=== PATIENT | female | born 1990 | race Caucasian/White ===

== ENCOUNTER 2018-04-16 13:00 | Outpatient (RCR) | payer OTHER, SELFPAY ==
--- NOTE | 2017-11-25 17:09 | PT.OIE ---
Current Diagnoses Mixed incontinence (11/25/17) Past Medical History (Last Updated 10/20/17 @ 11:01 by Bren Romero) Insulin resistance (Chronic) Past Surgical History (Last Updated 10/20/17 @ 11:00 by Bren Romero) History of salpingectomy (Resolved 05/12/17) History of third molar tooth extraction (Resolved 2004) Status post delivery (Resolved 05/27/14) Status post cone biopsy of cervix (Resolved 10/21/14) Status post hysterectomy (Resolved 05/12/17) Status post laparoscopy (Resolved 2010) Status post loop electrosurgical excision procedure (LEEP) of cervix (Resolved 09/02/14) Provider Visit Care Team Role Provider Type TAMERA Evans Primary Care Provider Advanced Chemical Treatment Plant Technician Specialty: Family Practice Address: [address] [place] [address] Email: [email or web address] Vincent MD Attending Provider Physician Specialty: HAND RIGGER Address: [address] [place] [address] Email: [email or web address] Physical Therapy Initial Evaluation PT-OP-A Visit Information Start: 11/25/17 16:23 Freq: Status: Active Protocol: Document 11/25/17 16:23 [facility] (Rec: 11/25/17 16:58 [facility] [email or web address]) Out-Patient Physical Therapy Visit Information Visit Information Visit Type Initial Evaluation Visit Start Time 13:45 Visit Stop Time 14:30 Total Visit Minutes 45 Visit Number 1 Evaluation Information Evaluation Date 11/25/17 PT-OP-B Current Condition Start: 11/25/17 16:23 Freq: Status: Active Protocol: Document 11/25/17 16:23 [facility] (Rec: 11/25/17 16:58 [facility] [email or web address]) Current Condition History of Current Condition Onset Date 3 1/2 years ago Current Complaints urinary leakage History of Current Condition 26 year old female who underwent a hysterectomy in april of 2017. She notes it was supposed to be a vaginal hysterectomy but due to adhesions between her uterus and bladder it turned into a abdominal incision. She reports following surgery it hurt to void or have a bowel movement for 4 months. She has had 2 deliveries with the last one being 10/10/16. Yudi has a history of pelvic pain that began at age 18. At this time she is no longer experiencing pain but does c/o vaginal dryness. Her chief complaints of symptoms since her hysterectomy include constant bladder leakage throughout the day. She will experience a few drops at a time but this happens frequently all day. She leaks in all positions including laying down and at night. She does wear a pad to bed at night. Yudi also reports she never feels like she empties her bladder all the way and that she could go again soon after she voids. She will often have a slow or hesitant urinary stream and has difficulty initiating the stream of urine. Current Functional Impairments (Reported) Functional Limitations- Other urinary leakage throughout the day, limits recreational activities PT-OP-C Subjective Start: 11/25/17 16:23 Freq: Status: Active Protocol: Document 11/25/17 16:23 [facility] (Rec: 11/25/17 16:58 [facility] [email or web address]) Patient Questionnaires Pelvic Pain and Urgency/Frequency Patient Symptom Scale Pelvic Pain Score 19 PT-OP-F Manual Assessment Start: 11/25/17 16:58 Freq: Status: Active Protocol: Document 11/25/17 16:58 [facility] (Rec: 11/25/17 16:59 [facility] [email or web address]) Manual Assessments Soft Tissue Assessment Soft Tissue Mobility Assessment tightness across the suprapubic fascia and right lower abdominal wall and hip. Decreased hip extension on the right PT-OP-I Pelvic Floor Start: 11/25/17 16:23 Freq: Status: Active Protocol: Document 11/25/17 16:23 [facility] (Rec: 11/25/17 16:58 [facility] [email or web address]) Pelvic Floor Assessment Urine Urinary Symptoms Urge Sensation Incomplete Emptying Leakage Size Small Other Leakage Causes leakage is happening constantly throughout the day Nocturia yes approximately 3 times per night Urine Pad Type Panty Liner Pelvic Clock Pelvic Clock 12-3 Atrophy Pelvic Clock 3-6 Guarding Hypertonic Pelvic Clock 6-9 Atrophy Pelvic Clock 9-12 Atrophy SEMG (uV) Baseline 6.56 Recruitment Pattern Poor/Slow Relaxation Poor/Slow Holding Poor/Slow Stability of Hold Poor/Slow SEMG Stability of Rest Poor/Slow Contraction Ability Manual Muscle Testing Left 1 Manual Muscle Testing Right 1 Manual Muscle Testing Anterior 1 Manual Muscle Testing Posterior 1 PT-OP-Q Treatments Start: 11/25/17 16:23 Freq: Status: Active Protocol: Document 11/25/17 16:23 [facility] (Rec: 11/25/17 16:58 [facility] [email or web address]) Therapeutic Exercises Supine Exercises 2 Supine Exercise Name modified squat stretch Side bilateral Reps/Minutes hold 1-2 minutes 1 Supine Exercise Name pelvic floor isolations with ball squeeze Side bilateral Reps/Minutes 3 x 10 reps Manual Therapy Treatment Manual Techniques 1 Type ILU massage over the abdomen Body Position Hooklying Comments taught ILU self massage for home PT-OP-T Assessment and Plan Start: 11/25/17 16:23 Freq: Status: Active Protocol: Document 11/25/17 16:23 [facility] (Rec: 11/25/17 17:05 [facility] [email or web address]) Physical Therapy Assessment Rehab Potential Rehabilitation Potential Excellent Evaluation Complexity Number of Personal Factors/Comorbidities 0 Number of Body Systems Impaired 1-2 Clinical Presentation at Evaluation Stable Impairments Impairments Activity Tolerance Functional Activities Soft Tissue Mobility Strength Tone Goals Four Impairment elevated resting tone on EMG biofeedback at 6.5 uv Short Term Goal (STG) Yudi is educated in relaxed awareness of the pelvic floor and has improved coordination of her muscles allowing her to relax her pelvic floor at rest STG Duration 6 weeks Three Impairment Nocturia and urinary leakage during the night Short Term Goal (STG) Yudi is able to stay dry at night and is no longer wearing a pad to bed Two Impairment Urinary leakage constant throughout the day Radial Drill Press Operator For [employer] Goal (LTG) Decreased complaints of urinary leakage during the day and Yudi is only using 1 or less pads per day LTG Duration 8 weeks One Impairment Pelvic floor weakness, difficulty facilitating a pelvic floor contraction Senior Living Goal (LTG) With the help of EMG biofeedback, tactile cues, and NMES Yudi is able to facilitate a pelvic floor isolated contraction and she demonstrates improved strength of the pelvic floor LTG Duration 8 weeks Assessment Summary Assessment Yudi presents to physical therapy with a great deal of weakness in her pelvic floor. She tests a 1/5 today MMT in all parts of the levator ani. Her left side of the levator ani is guarded and tight. She is tight in the suprapubic fascia more on the right side with iliopsoas tightness B. Yudi did well today with EMG biofeedback and hip adduction assist to facilitate the pelvic floor as she had difficulty with facilitation on her own. She is a good candidate for NMES and we will try this next visit. Yudi tolerated todays visit well. Physical Therapy Plan Frequency and Duration Frequency of Treatment 1x/Week Duration of Treatment 8 Plan of Care Start Date 11/25/17 Plan of Care End Date 01/20/18 Therapeutic Interventions Therapeutic Interventions Home Exercise Program Manual Therapy Neuromuscular Re-education Patient/Caregiver Education Self-Care/Home Management Soft Tissue Mobilization Therapeutic Exercises Modalities Biofeedback Other Therapeutic Interventions NMES Next Visit Focus/Plan Next Note Type Treatment Note Next Visit Plan pelvic floor neuromuscular facilitation and trial of NMES , begin adding hip stretches it to her HEP
--- NOTE | 2017-11-25 17:12 | PT.OPPOC ---
Current Diagnoses Mixed incontinence (11/25/17) Provider Visit Care Team Role Provider Type TAMERA Evans Primary Care Provider Advanced Flavor Tank Tender Specialty: Family Practice Address: [address] [place] [address], [id number] Email: [email or web address] Attending Provider Physician Specialty: PROOF READER Address: [address] [place] [address], [id number] Email: [email or web address] Plan Of Care PT-OP-T Assessment and Plan Start: 11/25/17 16:23 Freq: Status: Active Protocol: Document 11/25/17 16:23 [facility] (Rec: 11/25/17 17:05 [facility] [email or web address]) Physical Therapy Assessment Rehab Potential Rehabilitation Potential Excellent Evaluation Complexity Number of Personal Factors/Comorbidities 0 Number of Body Systems Impaired 1-2 Clinical Presentation at Evaluation Stable Impairments Impairments Activity Tolerance Functional Activities Soft Tissue Mobility Strength Tone Goals Four Impairment elevated resting tone on EMG biofeedback at 6.5 uv Short Term Goal (STG) Yudi is educated in relaxed awaress of the pelvic floor and has improved coordination of her muscles allowing her to relax her pelvic floor at rest STG Duration 6 weeks Three Impairment Nocturia and urinary leakage during the night Short Term Goal (STG) Yudi is able to stay dry at night and is no longer wearing a pad to bed Two Impairment Urinary leakage constant throughtout the day Pancake Professional Goal (LTG) Decreased complaints of urinary leakage during the day and Yudi is only usine 1 or less pads per day LTG Duration 8 weeks One Impairment Pelvic floor weakness, difficulty facilitating a pelvic floor contraction Long-Term Goal (LTG) With the help of EMG biofeedback, tactile cues, and NMES Yudi is able to facilitate a pelvic floor isolated contraction and she demonstrates improved strength of the pelvic floor LTG Duration 8 weeks Assessment Summary Assessment Yudi presents to physcial therapy with a great deal of weakness in her pelvic floor. She tests a 1/5 today MMT in all parts of the levator ani. Her left side of the leavator ani is guarded and tight. She is tight in the suprapubic fascia more on the right side with iliopsoas tightness BReno Bagley did well today with EMG biofeedback and hip adduction assist to facilitate the pelvic floor as she had difficutly with facilitation on her own. She is a good candidate for NMES and we will try this next visit. Yudi tolerated todays visit well. Physical Therapy Plan Frequency and Duration Frequency of Treatment 1x/Week Duration of Treatment 8 Plan of Care Start Date 11/25/17 Plan of Care End Date 01/20/18 Therapeutic Interventions Therapeutic Interventions Home Exercise Program Manual Therapy Neuromuscular Re-education Patient/Caregiver Education Self-Care/Home Management Soft Tissue Mobilization Therapeutic Exercises Modalities Biofeedback Other Therapeutic Interventions NMES Next Visit Focus/Plan Next Note Type Treatment Note Next Visit Plan pelvic floor neuromuscular facilitation and trial of NMES , begin adding hip stretches it to her HEP Plan of Care Dates Plan of Care Start Date 11/25/17 Plan of Care End Date 01/20/18 Please Sign and Return: I have reviewed this Plan of Care and certify that the skilled therapy services above are required to meet the patient?s needs. Physician Signature Date Printed Name and Credentials Clinical Instructor Signature Printed Name and Credentials
--- NOTE | 2017-12-16 09:00 | PT.OTN ---
Current Diagnoses Mixed incontinence (12/10/17) Physical Therapy Treatment Note PT-OP-A Visit Information Start: 11/25/17 16:23 Freq: Status: Active Protocol: Document 12/10/17 11:09 [facility] (Rec: 12/10/17 11:12 [facility] [email or web address]) Out-Patient Physical Therapy Visit Information Visit Information Visit Type Treatment Note Visit Start Time 10:45 Visit Stop Time 11:30 Total Visit Minutes 45 Visit Number 2 PT-OP-B Current Condition Start: 11/25/17 16:23 Freq: Status: Active Protocol: Document 11/25/17 16:23 [facility] (Rec: 11/25/17 16:58 [facility] [email or web address]) Current Condition History of Current Condition Onset Date 3 1/2 years ago Current Complaints urinary leakage History of Current Condition 26 year old female who underwent a hysterectomy in april of 2017. She notes it was supposed to be a vaginal hysterectomy but due to adhesions between her uterus and bladder it turned into a abdominal incision. She reports following surgery it hurt to void or have a bowel movement for 4 months. She has had 2 deliverys with the last one being 10/10/16. Yudi has a history of pelvic pain that began at age 18. At this time she is no longer experiencing pain but does c/o vaginal dryness. Her chief complaints of symptoms since her hysterectomy include constant bladder leakage throughout the day. She will experience a few drops at a time but this happens frequently all day. She leaks in all positions including laying down and at night. She does wear a pad to bed at night. Yudi also reports she never feels like she empties her bladdera ll the way and that she could go again soon after she voids. She will often have a slow or hesitant urinary stream and has difficulty initiating the stream of urine. Current Functional Impairments (Reported) Functional Limitations- Other urinary leakage throughouts the day, limits recreational activities PT-OP-C Subjective Start: 11/25/17 16:23 Freq: Status: Active Protocol: Document 12/10/17 11:09 [facility] (Rec: 12/10/17 11:12 [facility] [email or web address]) OP-PT Subjective Patient Comments Patient Comments Yudi reports it is difficult to find her pelvic floor and she feels like she is clenching her buttocks PT-OP-F Manual Assessment Start: 11/25/17 16:58 Freq: Status: Active Protocol: Document 11/25/17 16:58 [facility] (Rec: 11/25/17 16:59 [facility] [email or web address]) Manual Assessments Soft Tissue Assessment Soft Tissue Mobility Assessment tightness across the suprapubic fascia and right lower abdominal wall and hip. Decreased hip extension on the right PT-OP-I Pelvic Floor Start: 11/25/17 16:23 Freq: Status: Active Protocol: Document 11/25/17 16:23 [facility] (Rec: 11/25/17 16:58 [facility] [email or web address]) Pelvic Floor Assessment Urine Urinary Symptoms Urge Sensation Incomplete Emptying Leakage Size Small Other Leakage Causes leakage is happening constantly throughout the day Nocturia yes approximately 3 times per night Urine Pad Type Panty Liner Pelvic Clock Pelvic Clock 12-3 Atrophy Pelvic Clock 3-6 Guarding Hypertonic Pelvic Clock 6-9 Atrophy Pelvic Clock 9-12 Atrophy SEMG (uV) Baseline 6.56 Recruitment Pattern Poor/Slow Relaxation Poor/Slow Holding Poor/Slow Stability of Hold Poor/Slow SEMG Stability of Rest Poor/Slow Contraction Ability Manual Muscle Testing Left 1 Manual Muscle Testing Right 1 Manual Muscle Testing Anterior 1 Manual Muscle Testing Posterior 1 PT-OP-Q Treatments Start: 11/25/17 16:23 Freq: Status: Active Protocol: Document 12/10/17 11:13 [facility] (Rec: 12/10/17 11:15 [facility] [email or web address]) Manual Therapy Treatment Soft Tissue Mobilization 1 Body Location suprapubic fascia Mobilization Type Myofascial Release PT-OP-T Assessment and Plan Start: 11/25/17 16:23 Freq: Status: Active Protocol: Document 11/25/17 16:23 [facility] (Rec: 11/25/17 17:05 [facility] [email or web address]) Physical Therapy Assessment Rehab Potential Rehabilitation Potential Excellent Evaluation Complexity Number of Personal Factors/Comorbidities 0 Number of Body Systems Impaired 1-2 Clinical Presentation at Evaluation Stable Impairments Impairments Activity Tolerance Functional Activities Soft Tissue Mobility Strength Tone Goals Four Impairment elevated resting tone on EMG biofeedback at 6.5 uv Short Term Goal (STG) Yudi is educated in relaxed awaress of the pelvic floor and has improved coordination of her muscles allowing her to relax her pelvic floor at rest STG Duration 6 weeks Three Impairment Nocturia and urinary leakage during the night Short Term Goal (STG) Yudi is able to stay dry at night and is no longer wearing a pad to bed Two Impairment Urinary leakage constant throughtout the day Assistant Warehouse Manager Goal (LTG) Decreased complaints of urinary leakage during the day and Yudi is only usine 1 or less pads per day LTG Duration 8 weeks One Impairment Pelvic floor weakness, difficulty facilitating a pelvic floor contraction Assistant Warehouse Manager Goal (LTG) With the help of EMG biofeedback, tactile cues, and NMES Yudi is able to facilitate a pelvic floor isolated contraction and she demonstrates improved strength of the pelvic floor LTG Duration 8 weeks Assessment Summary Assessment Yudi presents to physcial therapy with a great deal of weakness in her pelvic floor. She tests a 1/5 today MMT in all parts of the levator ani. Her left side of the leavator ani is guarded and tight. She is tight in the suprapubic fascia more on the right side with iliopsoas tightness B. Yudi did well today with EMG biofeedback and hip adduction assist to facilitate the pelvic floor as she had difficutly with facilitation on her own. She is a good candidate for NMES and we will try this next visit. Yudi tolerated todays visit well. Physical Therapy Plan Frequency and Duration Frequency of Treatment 1x/Week Duration of Treatment 8 Plan of Care Start Date 11/25/17 Plan of Care End Date 01/20/18 Therapeutic Interventions Therapeutic Interventions Home Exercise Program Manual Therapy Neuromuscular Re-education Patient/Caregiver Education Self-Care/Home Management Soft Tissue Mobilization Therapeutic Exercises Modalities Biofeedback Other Therapeutic Interventions NMES Next Visit Focus/Plan Next Note Type Treatment Note Next Visit Plan pelvic floor neuromuscular facilitation and trial of NMES , begin adding hip stretches it to her HEP
--- NOTE | 2017-12-16 14:09 | PT.OTN ---
Current Diagnoses Mixed incontinence (12/16/17) Physical Therapy Treatment Note PT-OP-A Visit Information Start: 11/25/17 16:23 Freq: Status: Active Protocol: Document 12/16/17 11:11 [facility] (Rec: 12/16/17 11:12 [facility] [email or web address]) Out-Patient Physical Therapy Visit Information Visit Information Visit Type Treatment Note Visit Start Time 01:03 Visit Stop Time 11:15 Total Visit Minutes 45 Visit Number 3 PT-OP-B Current Condition Start: 11/25/17 16:23 Freq: Status: Active Protocol: Document 11/25/17 16:23 [facility] (Rec: 11/25/17 16:58 [facility] [email or web address]) Current Condition History of Current Condition Onset Date 3 1/2 years ago Current Complaints urinary leakage History of Current Condition 26 year old female who underwent a hysterectomy in april of 2017. She notes it was supposed to be a vaginal hysterectomy but due to adhesions between her uterus and bladder it turned into a abdominal incision. She reports following surgery it hurt to void or have a bowel movement for 4 months. She has had 2 deliverys with the last one being 10/10/16. Yudi has a history of pelvic pain that began at age 18. At this time she is no longer experiencing pain but does c/o vaginal dryness. Her chief complaints of symptoms since her hysterectomy include constant bladder leakage throughout the day. She will experience a few drops at a time but this happens frequently all day. She leaks in all positions including laying down and at night. She does wear a pad to bed at night. Yudi also reports she never feels like she empties her bladdera ll the way and that she could go again soon after she voids. She will often have a slow or hesitant urinary stream and has difficulty initiating the stream of urine. Current Functional Impairments (Reported) Functional Limitations- Other urinary leakage throughouts the day, limits recreational activities PT-OP-C Subjective Start: 11/25/17 16:23 Freq: Status: Active Protocol: Document 12/16/17 11:11 [facility] (Rec: 12/16/17 11:12 [facility] [email or web address]) OP-PT Subjective Patient Comments Patient Comments Yudi states she was able to stop the flow and feel it this last visit. PT-OP-F Manual Assessment Start: 11/25/17 16:58 Freq: Status: Active Protocol: Document 11/25/17 16:58 [facility] (Rec: 11/25/17 16:59 [facility] [email or web address]) Manual Assessments Soft Tissue Assessment Soft Tissue Mobility Assessment tightness across the suprapubic fascia and right lower abdominal wall and hip. Decreased hip extension on the right PT-OP-I Pelvic Floor Start: 11/25/17 16:23 Freq: Status: Active Protocol: Document 11/25/17 16:23 [facility] (Rec: 11/25/17 16:58 [facility] [email or web address]) Pelvic Floor Assessment Urine Urinary Symptoms Urge Sensation Incomplete Emptying Leakage Size Small Other Leakage Causes leakage is happening constantly throughout the day Nocturia yes approximately 3 times per night Urine Pad Type Panty Liner Pelvic Clock Pelvic Clock 12-3 Atrophy Pelvic Clock 3-6 Guarding Hypertonic Pelvic Clock 6-9 Atrophy Pelvic Clock 9-12 Atrophy SEMG (uV) Baseline 6.56 Recruitment Pattern Poor/Slow Relaxation Poor/Slow Holding Poor/Slow Stability of Hold Poor/Slow SEMG Stability of Rest Poor/Slow Contraction Ability Manual Muscle Testing Left 1 Manual Muscle Testing Right 1 Manual Muscle Testing Anterior 1 Manual Muscle Testing Posterior 1 PT-OP-Q Treatments Start: 11/25/17 16:23 Freq: Status: Active Protocol: Document 12/16/17 11:05 [facility] (Rec: 12/16/17 11:11 [facility] [email or web address]) Therapeutic Exercises Supine Exercises 2 Supine Exercise Name modified squat stretch Side bilateral Reps/Minutes hold 1-2 minutes 1 Supine Exercise Name pelvic floor isolations with ball squeeze Side bilateral Reps/Minutes 3 x 10 reps Prone Exercises 1 Prone Exercise Name cobra stretch Other Exercises 1 Other Exercise Name quadraped cat cow and TA facilitation Manual Therapy Treatment Soft Tissue Mobilization 1 Body Location suprapubic fascia Mobilization Type Myofascial Release Manual Techniques 1 Type ILU massage over the abdomen Body Position Hooklying Neuro Re-Education Treatment Other Activities 1 Details NMES for the pelvic floor Comments able to feel sesation on the right side today PT-OP-T Assessment and Plan Start: 11/25/17 16:23 Freq: Status: Active Protocol: Document 12/16/17 11:05 [facility] (Rec: 12/16/17 11:11 [facility] [email or web address]) Physical Therapy Assessment Assessment Summary Assessment improved facilitation as Yudi is able to feel the pelvic floor on the right side today Physical Therapy Plan Frequency and Duration Frequency of Treatment 1x/Week Duration of Treatment 8 Plan of Care Start Date 11/25/17 Plan of Care End Date 01/20/18 Therapeutic Interventions Therapeutic Interventions Home Exercise Program Manual Therapy Neuromuscular Re-education Patient/Caregiver Education Self-Care/Home Management Soft Tissue Mobilization Therapeutic Exercises Modalities Biofeedback Other Therapeutic Interventions NMES Next Visit Focus/Plan Next Note Type Treatment Note Next Visit Plan TA facilitation next visit in supine
--- NOTE | 2017-12-23 12:57 | PT.OTN ---
Current Diagnoses Mixed incontinence (12/23/17) Physical Therapy Treatment Note PT-OP-A Visit Information Start: 11/25/17 16:23 Freq: Status: Active Protocol: Document 12/23/17 10:57 [facility] (Rec: 12/23/17 11:01 [facility] [email or web address]) Out-Patient Physical Therapy Visit Information Visit Information Visit Type Treatment Note Visit Start Time 10:30 Visit Stop Time 11:15 Total Visit Minutes 45 Visit Number 4 Evaluation Information Evaluation Date 11/25/17 PT-OP-B Current Condition Start: 11/25/17 16:23 Freq: Status: Active Protocol: Document 11/25/17 16:23 [facility] (Rec: 11/25/17 16:58 [facility] [email or web address]) Current Condition History of Current Condition Onset Date 3 1/2 years ago Current Complaints urinary leakage History of Current Condition 26 year old female who underwent a hysterectomy in april of 2017. She notes it was supposed to be a vaginal hysterectomy but due to adhesions between her uterus and bladder it turned into a abdominal incision. She reports following surgery it hurt to void or have a bowel movement for 4 months. She has had 2 deliverys with the last one being 10/10/16. Yudi has a history of pelvic pain that began at age 18. At this time she is no longer experiencing pain but does c/o vaginal dryness. Her chief complaints of symptoms since her hysterectomy include constant bladder leakage throughout the day. She will experience a few drops at a time but this happens frequently all day. She leaks in all positions including laying down and at night. She does wear a pad to bed at night. Yudi also reports she never feels like she empties her bladdera ll the way and that she could go again soon after she voids. She will often have a slow or hesitant urinary stream and has difficulty initiating the stream of urine. Current Functional Impairments (Reported) Functional Limitations- Other urinary leakage throughouts the day, limits recreational activities PT-OP-C Subjective Start: 11/25/17 16:23 Freq: Status: Active Protocol: Document 12/23/17 10:57 [facility] (Rec: 12/23/17 11:01 [facility] [email or web address]) OP-PT Subjective Patient Comments Patient Comments No new changes this week. Still able to work on stopping the flow of urine PT-OP-F Manual Assessment Start: 11/25/17 16:58 Freq: Status: Active Protocol: Document 11/25/17 16:58 [facility] (Rec: 11/25/17 16:59 [facility] [email or web address]) Manual Assessments Soft Tissue Assessment Soft Tissue Mobility Assessment tightness across the suprapubic fascia and right lower abdominal wall and hip. Decreased hip extension on the right PT-OP-I Pelvic Floor Start: 11/25/17 16:23 Freq: Status: Active Protocol: Document 11/25/17 16:23 [facility] (Rec: 11/25/17 16:58 [facility] [email or web address]) Pelvic Floor Assessment Urine Urinary Symptoms Urge Sensation Incomplete Emptying Leakage Size Small Other Leakage Causes leakage is happening constantly throughout the day Nocturia yes approximately 3 times per night Urine Pad Type Panty Liner Pelvic Clock Pelvic Clock 12-3 Atrophy Pelvic Clock 3-6 Guarding Hypertonic Pelvic Clock 6-9 Atrophy Pelvic Clock 9-12 Atrophy SEMG (uV) Baseline 6.56 Recruitment Pattern Poor/Slow Relaxation Poor/Slow Holding Poor/Slow Stability of Hold Poor/Slow SEMG Stability of Rest Poor/Slow Contraction Ability Manual Muscle Testing Left 1 Manual Muscle Testing Right 1 Manual Muscle Testing Anterior 1 Manual Muscle Testing Posterior 1 PT-OP-Q Treatments Start: 11/25/17 16:23 Freq: Status: Active Protocol: Document 12/23/17 10:57 [facility] (Rec: 12/23/17 11:01 [facility] [email or web address]) Therapeutic Exercises Supine Exercises 3 Supine Exercise Name roll outs with theraband Reps/Minutes 3x 10 reps 1 Supine Exercise Name pelvic floor isolations with ball squeeze Side bilateral Reps/Minutes 3 x 10 reps Prone Exercises 1 Prone Exercise Name cobra stretch Sidelying Exercises 1 Sidelying Exercise Name sidelying clam shell Reps/Minutes 2 x 10 Other Exercises 2 Other Exercise Name TA with opp arms and opp legs 1 Other Exercise Name quadraped cat cow and TA facilitation Neuro Re-Education Treatment Other Activities 1 Details NMES for the pelvic floor Comments able to feel sensation on the right and the left and anterior PT-OP-T Assessment and Plan Start: 11/25/17 16:23 Freq: Status: Active Protocol: Document 12/23/17 12:54 [facility] (Rec: 12/23/17 12:56 [facility] [email or web address]) Physical Therapy Assessment Assessment Summary Assessment Great improvement today on EMG biofeedback Physical Therapy Plan Frequency and Duration Frequency of Treatment 1x/Week Duration of Treatment 8 Plan of Care Start Date 11/25/17 Plan of Care End Date 01/20/18 Therapeutic Interventions Therapeutic Interventions Home Exercise Program Manual Therapy Neuromuscular Re-education Patient/Caregiver Education Self-Care/Home Management Soft Tissue Mobilization Therapeutic Exercises Modalities Biofeedback Other Therapeutic Interventions NMES Next Visit Focus/Plan Next Note Type Treatment Note Next Visit Plan review TA facilitation in quadraped with opp arm/leg and clam shells next visit
--- NOTE | 2017-12-23 18:38 | PT.OTN ---
Current Diagnoses Mixed incontinence (12/23/17) Physical Therapy Treatment Note PT-OP-A Visit Information Start: 11/25/17 16:23 Freq: Status: Active Protocol: Document 12/23/17 10:57 [facility] (Rec: 12/23/17 11:01 [facility] [email or web address]) Out-Patient Physical Therapy Visit Information Visit Information Visit Type Treatment Note Visit Start Time 10:30 Visit Stop Time 11:15 Total Visit Minutes 45 Visit Number 4 Evaluation Information Evaluation Date 11/25/17 PT-OP-B Current Condition Start: 11/25/17 16:23 Freq: Status: Active Protocol: Document 11/25/17 16:23 [facility] (Rec: 11/25/17 16:58 [facility] [email or web address]) Current Condition History of Current Condition Onset Date 3 1/2 years ago Current Complaints urinary leakage History of Current Condition 26 year old female who underwent a hysterectomy in april of 2017. She notes it was supposed to be a vaginal hysterectomy but due to adhesions between her uterus and bladder it turned into a abdominal incision. She reports following surgery it hurt to void or have a bowel movement for 4 months. She has had 2 deliverys with the last one being 10/10/16. Yudi has a history of pelvic pain that began at age 18. At this time she is no longer experiencing pain but does c/o vaginal dryness. Her chief complaints of symptoms since her hysterectomy include constant bladder leakage throughout the day. She will experience a few drops at a time but this happens frequently all day. She leaks in all positions including laying down and at night. She does wear a pad to bed at night. Yudi also reports she never feels like she empties her bladdera ll the way and that she could go again soon after she voids. She will often have a slow or hesitant urinary stream and has difficulty initiating the stream of urine. Current Functional Impairments (Reported) Functional Limitations- Other urinary leakage throughouts the day, limits recreational activities PT-OP-C Subjective Start: 11/25/17 16:23 Freq: Status: Active Protocol: Document 12/23/17 10:57 [facility] (Rec: 12/23/17 11:01 [facility] [email or web address]) OP-PT Subjective Patient Comments Patient Comments No new changes this week. Still able to work on stopping the flow of urine PT-OP-F Manual Assessment Start: 11/25/17 16:58 Freq: Status: Active Protocol: Document 11/25/17 16:58 [facility] (Rec: 11/25/17 16:59 [facility] [email or web address]) Manual Assessments Soft Tissue Assessment Soft Tissue Mobility Assessment tightness across the suprapubic fascia and right lower abdominal wall and hip. Decreased hip extension on the right PT-OP-I Pelvic Floor Start: 11/25/17 16:23 Freq: Status: Active Protocol: Document 11/25/17 16:23 [facility] (Rec: 11/25/17 16:58 [facility] [email or web address]) Pelvic Floor Assessment Urine Urinary Symptoms Urge Sensation Incomplete Emptying Leakage Size Small Other Leakage Causes leakage is happening constantly throughout the day Nocturia yes approximately 3 times per night Urine Pad Type Panty Liner Pelvic Clock Pelvic Clock 12-3 Atrophy Pelvic Clock 3-6 Guarding Hypertonic Pelvic Clock 6-9 Atrophy Pelvic Clock 9-12 Atrophy SEMG (uV) Baseline 6.56 Recruitment Pattern Poor/Slow Relaxation Poor/Slow Holding Poor/Slow Stability of Hold Poor/Slow SEMG Stability of Rest Poor/Slow Contraction Ability Manual Muscle Testing Left 1 Manual Muscle Testing Right 1 Manual Muscle Testing Anterior 1 Manual Muscle Testing Posterior 1 PT-OP-Q Treatments Start: 11/25/17 16:23 Freq: Status: Active Protocol: Document 12/23/17 10:57 [facility] (Rec: 12/23/17 11:01 [facility] [email or web address]) Therapeutic Exercises Supine Exercises 3 Supine Exercise Name roll outs with theraband Reps/Minutes 3x 10 reps 1 Supine Exercise Name pelvic floor isolations with ball squeeze Side bilateral Reps/Minutes 3 x 10 reps Prone Exercises 1 Prone Exercise Name cobra stretch Sidelying Exercises 1 Sidelying Exercise Name sidelying clam shell Reps/Minutes 2 x 10 Other Exercises 2 Other Exercise Name TA with opp arms and opp legs 1 Other Exercise Name quadraped cat cow and TA facilitation Neuro Re-Education Treatment Other Activities 1 Details NMES for the pelvic floor Comments able to feel sensation on the right and the left and anterior PT-OP-T Assessment and Plan Start: 11/25/17 16:23 Freq: Status: Active Protocol: Document 12/23/17 18:36 [facility] (Rec: 12/23/17 18:38 [facility] [email or web address]) Physical Therapy Plan Frequency and Duration Frequency of Treatment 1x/Week Duration of Treatment 8 Plan of Care Start Date 11/25/17 Plan of Care End Date 01/20/18 Therapeutic Interventions Therapeutic Interventions Home Exercise Program Manual Therapy Neuromuscular Re-education Patient/Caregiver Education Self-Care/Home Management Soft Tissue Mobilization Therapeutic Exercises Modalities Biofeedback Other Therapeutic Interventions NMES
--- NOTE | 2017-12-31 14:04 | PT.OTN ---
Current Diagnoses Mixed incontinence (12/31/17) Physical Therapy Treatment Note PT-OP-A Visit Information Start: 11/25/17 16:23 Freq: Status: Active Protocol: Document 12/31/17 13:31 [facility] (Rec: 12/31/17 13:37 [facility] [email or web address]) Out-Patient Physical Therapy Visit Information Visit Information Visit Type Treatment Note Visit Start Time 13:00 Visit Stop Time 13:45 Total Visit Minutes 45 Visit Number 5 PT-OP-B Current Condition Start: 11/25/17 16:23 Freq: Status: Active Protocol: Document 11/25/17 16:23 [facility] (Rec: 11/25/17 16:58 [facility] [email or web address]) Current Condition History of Current Condition Onset Date 3 1/2 years ago Current Complaints urinary leakage History of Current Condition 26 year old female who underwent a hysterectomy in april of 2017. She notes it was supposed to be a vaginal hysterectomy but due to adhesions between her uterus and bladder it turned into a abdominal incision. She reports following surgery it hurt to void or have a bowel movement for 4 months. She has had 2 deliverys with the last one being 10/10/16. Yudi has a history of pelvic pain that began at age 18. At this time she is no longer experiencing pain but does c/o vaginal dryness. Her chief complaints of symptoms since her hysterectomy include constant bladder leakage throughout the day. She will experience a few drops at a time but this happens frequently all day. She leaks in all positions including laying down and at night. She does wear a pad to bed at night. Yudi also reports she never feels like she empties her bladdera ll the way and that she could go again soon after she voids. She will often have a slow or hesitant urinary stream and has difficulty initiating the stream of urine. Current Functional Impairments (Reported) Functional Limitations- Other urinary leakage throughouts the day, limits recreational activities PT-OP-C Subjective Start: 11/25/17 16:23 Freq: Status: Active Protocol: Document 12/31/17 13:31 [facility] (Rec: 12/31/17 13:37 [facility] [email or web address]) OP-PT Subjective Patient Comments Patient Comments Noticing that pads are not as wet as they have been. Using 1-2 per day. PT-OP-F Manual Assessment Start: 11/25/17 16:58 Freq: Status: Active Protocol: Document 11/25/17 16:58 [facility] (Rec: 11/25/17 16:59 [facility] [email or web address]) Manual Assessments Soft Tissue Assessment Soft Tissue Mobility Assessment tightness across the suprapubic fascia and right lower abdominal wall and hip. Decreased hip extension on the right PT-OP-I Pelvic Floor Start: 11/25/17 16:23 Freq: Status: Active Protocol: Document 11/25/17 16:23 [facility] (Rec: 11/25/17 16:58 [facility] [email or web address]) Pelvic Floor Assessment Urine Urinary Symptoms Urge Sensation Incomplete Emptying Leakage Size Small Other Leakage Causes leakage is happening constantly throughout the day Nocturia yes approximately 3 times per night Urine Pad Type Panty Liner Pelvic Clock Pelvic Clock 12-3 Atrophy Pelvic Clock 3-6 Guarding Hypertonic Pelvic Clock 6-9 Atrophy Pelvic Clock 9-12 Atrophy SEMG (uV) Baseline 6.56 Recruitment Pattern Poor/Slow Relaxation Poor/Slow Holding Poor/Slow Stability of Hold Poor/Slow SEMG Stability of Rest Poor/Slow Contraction Ability Manual Muscle Testing Left 1 Manual Muscle Testing Right 1 Manual Muscle Testing Anterior 1 Manual Muscle Testing Posterior 1 PT-OP-Q Treatments Start: 11/25/17 16:23 Freq: Status: Active Protocol: Document 12/31/17 14:01 [facility] (Rec: 12/31/17 14:03 [facility] [email or web address]) Therapeutic Exercises Supine Exercises 3 Supine Exercise Name roll outs with theraband Reps/Minutes 3x 10 reps 2 Supine Exercise Name modified squat stretch Side bilateral Reps/Minutes hold 1-2 minutes 1 Supine Exercise Name pelvic floor isolations with ball squeeze Prone Exercises 2 Prone Exercise Name prone thoracic extensions 1 Prone Exercise Name cobra stretch Sidelying Exercises 2 Sidelying Exercise Name sidelying leg lifts 1 Sidelying Exercise Name sidelying clam shell Reps/Minutes 2 x 10 Other Exercises 2 Other Exercise Name TA with opp arms and opp legs 1 Other Exercise Name quadraped cat cow and TA facilitation Neuro Re-Education Treatment Other Activities 1 Details NMES for the pelvic floor Comments able to feel sensation on the right and the left and anterior PT-OP-T Assessment and Plan Start: 11/25/17 16:23 Freq: Status: Active Protocol: Document 12/31/17 14:01 [facility] (Rec: 12/31/17 14:03 [facility] [email or web address]) Physical Therapy Assessment Assessment Summary Assessment Yudi continues to show improvements with pelvic floor strength. Revisit relaxed awareness of the pelvic floor as well as she has mentioned that she has experienced some discomfort with intercourse. Physical Therapy Plan Frequency and Duration Frequency of Treatment 1x/Week Duration of Treatment 8 Plan of Care Start Date 11/25/17 Plan of Care End Date 01/20/18 Therapeutic Interventions Therapeutic Interventions Home Exercise Program Manual Therapy Neuromuscular Re-education Patient/Caregiver Education Self-Care/Home Management Soft Tissue Mobilization Therapeutic Exercises Modalities Biofeedback Other Therapeutic Interventions NMES Next Visit Focus/Plan Next Note Type Treatment Note Next Visit Plan yoga for the pelvic floor as well as progressing dynamic exercises
--- NOTE | 2018-01-07 13:46 | PT.OTN ---
Current Diagnoses Mixed incontinence (01/07/18) Physical Therapy Treatment Note PT-OP-A Visit Information Start: 11/25/17 16:23 Freq: Status: Active Protocol: Document 01/07/18 12:46 [facility] (Rec: 01/07/18 12:48 [facility] [email or web address]) Out-Patient Physical Therapy Visit Information Visit Information Visit Type Treatment Note Visit Start Time 13:00 Visit Stop Time 13:45 Total Visit Minutes 45 Visit Number 6 PT-OP-B Current Condition Start: 11/25/17 16:23 Freq: Status: Active Protocol: Document 11/25/17 16:23 [facility] (Rec: 11/25/17 16:58 [facility] [email or web address]) Current Condition History of Current Condition Onset Date 3 1/2 years ago Current Complaints urinary leakage History of Current Condition 26 year old female who underwent a hysterectomy in april of 2017. She notes it was supposed to be a vaginal hysterectomy but due to adhesions between her uterus and bladder it turned into a abdominal incision. She reports following surgery it hurt to void or have a bowel movement for 4 months. She has had 2 deliverys with the last one being 10/10/16. Yudi has a history of pelvic pain that began at age 18. At this time she is no longer experiencing pain but does c/o vaginal dryness. Her chief complaints of symptoms since her hysterectomy include constant bladder leakage throughout the day. She will experience a few drops at a time but this happens frequently all day. She leaks in all positions including laying down and at night. She does wear a pad to bed at night. Yudi also reports she never feels like she empties her bladdera ll the way and that she could go again soon after she voids. She will often have a slow or hesitant urinary stream and has difficulty initiating the stream of urine. Current Functional Impairments (Reported) Functional Limitations- Other urinary leakage throughouts the day, limits recreational activities PT-OP-C Subjective Start: 11/25/17 16:23 Freq: Status: Active Protocol: Document 01/07/18 12:46 [facility] (Rec: 01/07/18 12:48 [facility] [email or web address]) OP-PT Subjective Patient Comments Patient Comments doing better overall and able to emtpy easier now. Also went the whole night without leaking PT-OP-F Manual Assessment Start: 11/25/17 16:58 Freq: Status: Active Protocol: Document 11/25/17 16:58 [facility] (Rec: 11/25/17 16:59 [facility] [email or web address]) Manual Assessments Soft Tissue Assessment Soft Tissue Mobility Assessment tightness across the suprapubic fascia and right lower abdominal wall and hip. Decreased hip extension on the right PT-OP-I Pelvic Floor Start: 11/25/17 16:23 Freq: Status: Active Protocol: Document 11/25/17 16:23 [facility] (Rec: 11/25/17 16:58 [facility] [email or web address]) Pelvic Floor Assessment Urine Urinary Symptoms Urge Sensation Incomplete Emptying Leakage Size Small Other Leakage Causes leakage is happening constantly throughout the day Nocturia yes approximately 3 times per night Urine Pad Type Panty Liner Pelvic Clock Pelvic Clock 12-3 Atrophy Pelvic Clock 3-6 Guarding Hypertonic Pelvic Clock 6-9 Atrophy Pelvic Clock 9-12 Atrophy SEMG (uV) Baseline 6.56 Recruitment Pattern Poor/Slow Relaxation Poor/Slow Holding Poor/Slow Stability of Hold Poor/Slow SEMG Stability of Rest Poor/Slow Contraction Ability Manual Muscle Testing Left 1 Manual Muscle Testing Right 1 Manual Muscle Testing Anterior 1 Manual Muscle Testing Posterior 1 PT-OP-Q Treatments Start: 11/25/17 16:23 Freq: Status: Active Protocol: Document 01/07/18 12:46 [facility] (Rec: 01/07/18 12:48 [facility] [email or web address]) Therapeutic Exercises Supine Exercises 5 Supine Exercise Name foam roll stretch 4 Supine Exercise Name TA with marches 3 Supine Exercise Name roll outs with theraband Reps/Minutes 3x 10 reps 1 Supine Exercise Name pelvic floor isolations with ball squeeze Prone Exercises 2 Prone Exercise Name prone thoracic extensions 1 Prone Exercise Name cobra stretch Other Exercises 2 Other Exercise Name TA with opp arms and opp legs 1 Other Exercise Name quadraped cat cow and TA facilitation PT-OP-T Assessment and Plan Start: 11/25/17 16:23 Freq: Status: Active Protocol: Document 01/07/18 13:44 [facility] (Rec: 01/07/18 13:46 [facility] [email or web address]) Physical Therapy Assessment Assessment Summary Assessment Added in foam roll stretch and TA with marches today. Much improved pelvic floor facilitation on EMG. biofeedback to 17.5 average and 38.3 uv max. Improved resting tone today too to 2.0 uv Physical Therapy Plan Frequency and Duration Frequency of Treatment 1x/Week Duration of Treatment 8 Plan of Care Start Date 11/25/17 Plan of Care End Date 01/20/18 Therapeutic Interventions Therapeutic Interventions Home Exercise Program Manual Therapy Neuromuscular Re-education Patient/Caregiver Education Self-Care/Home Management Soft Tissue Mobilization Therapeutic Exercises Modalities Biofeedback Other Therapeutic Interventions NMES Next Visit Focus/Plan Next Note Type Treatment Note Next Visit Plan continue progressing dynamic stabilization, revisit NMES as well
--- NOTE | 2018-01-21 14:25 | PT.OTN ---
Current Diagnoses Mixed incontinence (01/21/18) Physical Therapy Treatment Note PT-OP-A Visit Information Start: 11/25/17 16:23 Freq: Status: Active Protocol: Document 01/21/18 14:13 [facility] (Rec: 01/21/18 14:25 [facility] [email or web address]) Out-Patient Physical Therapy Visit Information Visit Information Visit Type Progress Note Visit Start Time 13:00 Visit Stop Time 13:45 Total Visit Minutes 45 Visit Number 8 Evaluation Information Evaluation Date 11/25/17 PT-OP-B Current Condition Start: 11/25/17 16:23 Freq: Status: Active Protocol: Document 11/25/17 16:23 [facility] (Rec: 11/25/17 16:58 [facility] [email or web address]) Current Condition History of Current Condition Onset Date 3 1/2 years ago Current Complaints urinary leakage History of Current Condition 26 year old female who underwent a hysterectomy in april of 2017. She notes it was supposed to be a vaginal hysterectomy but due to adhesions between her uterus and bladder it turned into a abdominal incision. She reports following surgery it hurt to void or have a bowel movement for 4 months. She has had 2 deliverys with the last one being 10/10/16. Yudi has a history of pelvic pain that began at age 18. At this time she is no longer experiencing pain but does c/o vaginal dryness. Her chief complaints of symptoms since her hysterectomy include constant bladder leakage throughout the day. She will experience a few drops at a time but this happens frequently all day. She leaks in all positions including laying down and at night. She does wear a pad to bed at night. Yudi also reports she never feels like she empties her bladdera ll the way and that she could go again soon after she voids. She will often have a slow or hesitant urinary stream and has difficulty initiating the stream of urine. Current Functional Impairments (Reported) Functional Limitations- Other urinary leakage throughouts the day, limits recreational activities PT-OP-C Subjective Start: 11/25/17 16:23 Freq: Status: Active Protocol: Document 01/21/18 14:13 [facility] (Rec: 01/21/18 14:25 [facility] [email or web address]) OP-PT Subjective Patient Comments Patient Comments Yudi reports she has not been experiencing as much of the heel pain. She has been trying to stand evenly on both feet as she has a tendency to stand on the right Patient Reported Progress Improving PT-OP-F Manual Assessment Start: 11/25/17 16:58 Freq: Status: Active Protocol: Document 11/25/17 16:58 [facility] (Rec: 11/25/17 16:59 [facility] [email or web address]) Manual Assessments Soft Tissue Assessment Soft Tissue Mobility Assessment tightness across the suprapubic fascia and right lower abdominal wall and hip. Decreased hip extension on the right PT-OP-I Pelvic Floor Start: 11/25/17 16:23 Freq: Status: Active Protocol: Document 11/25/17 16:23 [facility] (Rec: 11/25/17 16:58 [facility] [email or web address]) Pelvic Floor Assessment Urine Urinary Symptoms Urge Sensation Incomplete Emptying Leakage Size Small Other Leakage Causes leakage is happening constantly throughout the day Nocturia yes approximately 3 times per night Urine Pad Type Panty Liner Pelvic Clock Pelvic Clock 12-3 Atrophy Pelvic Clock 3-6 Guarding Hypertonic Pelvic Clock 6-9 Atrophy Pelvic Clock 9-12 Atrophy SEMG (uV) Baseline 6.56 Recruitment Pattern Poor/Slow Relaxation Poor/Slow Holding Poor/Slow Stability of Hold Poor/Slow SEMG Stability of Rest Poor/Slow Contraction Ability Manual Muscle Testing Left 1 Manual Muscle Testing Right 1 Manual Muscle Testing Anterior 1 Manual Muscle Testing Posterior 1 PT-OP-Q Treatments Start: 11/25/17 16:23 Freq: Status: Active Protocol: Document 01/21/18 14:13 [facility] (Rec: 01/21/18 14:25 [facility] [email or web address]) Therapeutic Exercises Supine Exercises 5 Supine Exercise Name foam roll stretch 1 Supine Exercise Name pelvic floor isolations with ball squeeze Other Exercises 5 Other Exercise Name iliopspoas half kneeling stretch 3 Other Exercise Name supine stretch over the ball Manual Therapy Treatment Soft Tissue Mobilization 1 Body Location suprapubic fascia Mobilization Type Myofascial Release Manual Techniques 2 Type MET for right pubic upslip 1 Type ILU massage over the abdomen Neuro Re-Education Treatment Other Activities 1 Details NMES for the pelvic floor Comments able to feel the sensation at level 2 now and able to feel more overall sensation in the pelvic floor PT-OP-T Assessment and Plan Start: 11/25/17 16:23 Freq: Status: Active Protocol: Document 01/21/18 14:13 [facility] (Rec: 01/21/18 14:25 [facility] [email or web address]) Physical Therapy Assessment Goals Four Impairment elevated resting tone on EMG biofeedback at 6.5 uv Short Term Goal (STG) Yudi is educated in relaxed awaress of the pelvic floor and has improved coordination of her muscles allowing her to relax her pelvic floor at rest STG Duration 6 weeks Three Impairment Nocturia and urinary leakage during the night Short Term Goal (STG) Yudi is able to stay dry at night and is no longer wearing a pad to bed Two Impairment Urinary leakage constant throughtout the day Half-Way Goal (LTG) Decreased complaints of urinary leakage during the day and Yudi is only usine 1 or less pads per day LTG Duration 8 weeks One Impairment Pelvic floor weakness, difficulty facilitating a pelvic floor contraction Wafer Cleaner Goal (LTG) With the help of EMG biofeedback, tactile cues, and NMES Yudi is able to facilitate a pelvic floor isolated contraction and she demonstrates improved strength of the pelvic floor LTG Duration 8 weeks Progress Towards Goals Progress Towards Goals Progressing Toward Goals Assessment Summary Assessment Yudi is showing continued improvement of pelvic floor strength. Today the average is 19.5 uv with max of 38.5 uv . This is a really big improvement since Yudi began treatment in November. At that time she was unable to facilitate a contraction on her own without adductor musculature helping her. She is making good progress towards her goals and leakage is decreasing. Resting tone of the pelvic floor is also much improved and she is experiencing decreased pain with intercourse. Yudi would benefit from continued PT Physical Therapy Plan Frequency and Duration Frequency of Treatment 1x/Week Duration of Treatment 8 Plan of Care Start Date 01/21/18 Plan of Care End Date 03/17/18
--- NOTE | 2018-01-21 14:25 | PT.OPPOC ---
Current Diagnoses Mixed incontinence (01/21/18) Provider Visit Care Team Role Provider Type TAMERA Evans Primary Care Provider Advanced Die Developer Specialty: Family Practice Address: [address] [place] [address], [id number] Email: [email or web address] Lynsey Vincent MD Attending Provider Physician Specialty: TARGET SETTER Address: [address] [place] [address], [id number] Email: [email or web address] Plan Of Care PT-OP-T Assessment and Plan Start: 11/25/17 16:23 Freq: Status: Active Protocol: Document 01/21/18 14:13 [facility] (Rec: 01/21/18 14:25 [facility] [email or web address]) Physical Therapy Assessment Goals Four Impairment elevated resting tone on EMG biofeedback at 6.5 uv Short Term Goal (STG) Yudi is educated in relaxed awaress of the pelvic floor and has improved coordination of her muscles allowing her to relax her pelvic floor at rest STG Duration 6 weeks Three Impairment Nocturia and urinary leakage during the night Short Term Goal (STG) Yudi is able to stay dry at night and is no longer wearing a pad to bed Two Impairment Urinary leakage constant throughtout the day Longterm Goal (LTG) Decreased complaints of urinary leakage during the day and Yudi is only usine 1 or less pads per day LTG Duration 8 weeks One Impairment Pelvic floor weakness, difficulty facilitating a pelvic floor contraction Longterm Goal (LTG) With the help of EMG biofeedback, tactile cues, and NMES Yudi is able to facilitate a pelvic floor isolated contraction and she demonstrates improved strength of the pelvic floor LTG Duration 8 weeks Progress Towards Goals Progress Towards Goals Progressing Toward Goals Assessment Summary Assessment Yudi is showing continued improvement of pelvic floor strength. Today the average is 19.5 uv with max of 38.5 uv . This is a really big improvement since Yudi began treatment in November. At that time she was unable to facilitate a contraction on her own without adductor musculature helping her. She is making good progress towards her goals and leakage is decreasing. Resting tone of the pelvic floor is also much improved and she is experiencing decreased pain with intercourse. Yudi would benefit from continued PT Physical Therapy Plan Frequency and Duration Frequency of Treatment 1x/Week Duration of Treatment 8 Plan of Care Start Date 01/21/18 Plan of Care End Date 03/17/18 Plan of Care Dates Plan of Care Start Date 01/21/18 Plan of Care End Date 03/17/18 Please Sign and Return: I have reviewed this Plan of Care and certify that the skilled therapy services above are required to meet the patient?s needs. Physician Signature Date Printed Name and Credentials Clinical Instructor Signature Printed Name and Credentials
--- NOTE | 2018-01-28 13:56 | PT.OTN ---
Current Diagnoses Mixed incontinence (01/28/18) Physical Therapy Treatment Note PT-OP-A Visit Information Start: 11/25/17 16:23 Freq: Status: Active Protocol: Document 01/28/18 13:46 [facility] (Rec: 01/28/18 13:56 [facility] [email or web address]) Out-Patient Physical Therapy Visit Information Visit Information Visit Type Treatment Note Visit Start Time 12:15 Visit Stop Time 13:00 Total Visit Minutes 45 Visit Number 9 PT-OP-B Current Condition Start: 11/25/17 16:23 Freq: Status: Active Protocol: Document 11/25/17 16:23 [facility] (Rec: 11/25/17 16:58 [facility] [email or web address]) Current Condition History of Current Condition Onset Date 3 1/2 years ago Current Complaints urinary leakage History of Current Condition 26 year old female who underwent a hysterectomy in april of 2017. She notes it was supposed to be a vaginal hysterectomy but due to adhesions between her uterus and bladder it turned into a abdominal incision. She reports following surgery it hurt to void or have a bowel movement for 4 months. She has had 2 deliverys with the last one being 10/10/16. Yudi has a history of pelvic pain that began at age 18. At this time she is no longer experiencing pain but does c/o vaginal dryness. Her chief complaints of symptoms since her hysterectomy include constant bladder leakage throughout the day. She will experience a few drops at a time but this happens frequently all day. She leaks in all positions including laying down and at night. She does wear a pad to bed at night. Yudi also reports she never feels like she empties her bladdera ll the way and that she could go again soon after she voids. She will often have a slow or hesitant urinary stream and has difficulty initiating the stream of urine. Current Functional Impairments (Reported) Functional Limitations- Other urinary leakage throughouts the day, limits recreational activities PT-OP-C Subjective Start: 11/25/17 16:23 Freq: Status: Active Protocol: Document 01/28/18 13:46 [facility] (Rec: 01/28/18 13:56 [facility] [email or web address]) OP-PT Subjective Patient Comments Patient Comments Yudi reports she was able to make a long drive to [place] and only had to stop 1-2 times to void on the way there and back. Urgency is decreasing Patient Reported Progress Improving PT-OP-F Manual Assessment Start: 11/25/17 16:58 Freq: Status: Active Protocol: Document 11/25/17 16:58 [facility] (Rec: 11/25/17 16:59 [facility] [email or web address]) Manual Assessments Soft Tissue Assessment Soft Tissue Mobility Assessment tightness across the suprapubic fascia and right lower abdominal wall and hip. Decreased hip extension on the right PT-OP-I Pelvic Floor Start: 11/25/17 16:23 Freq: Status: Active Protocol: Document 11/25/17 16:23 [facility] (Rec: 11/25/17 16:58 [facility] [email or web address]) Pelvic Floor Assessment Urine Urinary Symptoms Urge Sensation Incomplete Emptying Leakage Size Small Other Leakage Causes leakage is happening constantly throughout the day Nocturia yes approximately 3 times per night Urine Pad Type Panty Liner Pelvic Clock Pelvic Clock 12-3 Atrophy Pelvic Clock 3-6 Guarding Hypertonic Pelvic Clock 6-9 Atrophy Pelvic Clock 9-12 Atrophy SEMG (uV) Baseline 6.56 Recruitment Pattern Poor/Slow Relaxation Poor/Slow Holding Poor/Slow Stability of Hold Poor/Slow SEMG Stability of Rest Poor/Slow Contraction Ability Manual Muscle Testing Left 1 Manual Muscle Testing Right 1 Manual Muscle Testing Anterior 1 Manual Muscle Testing Posterior 1 PT-OP-Q Treatments Start: 11/25/17 16:23 Freq: Status: Active Protocol: Document 01/28/18 13:46 [facility] (Rec: 01/28/18 13:56 [facility] [email or web address]) Therapeutic Exercises Supine Exercises 7 Supine Exercise Name quick pelvic floor contractions 1 Supine Exercise Name pelvic floor isolations with ball squeeze Sidelying Exercises 1 Sidelying Exercise Name sidelying clam shell Reps/Minutes 2 x 10 Other Exercises 6 Other Exercise Name iliopsoas stretch in tyrell test position Manual Therapy Treatment Soft Tissue Mobilization 1 Body Location suprapubic fascia Mobilization Type Myofascial Release PT-OP-T Assessment and Plan Start: 11/25/17 16:23 Freq: Status: Active Protocol: Document 01/28/18 13:46 [facility] (Rec: 01/28/18 13:56 [facility] [email or web address]) Physical Therapy Assessment Assessment Summary Assessment Yudi relaxes her pelvic floor much better following her stretching routine. We will return to doing this first next visit. Her right hip was tight today with hip ER possibibly from her drive. OVerall her symptoms continue to decrease and urgency is lessened Physical Therapy Plan Frequency and Duration Frequency of Treatment 1x/Week Duration of Treatment 8 Plan of Care Start Date 01/21/18 Plan of Care End Date 03/17/18 Therapeutic Interventions Therapeutic Interventions Home Exercise Program Manual Therapy Neuromuscular Re-education Patient/Caregiver Education Self-Care/Home Management Soft Tissue Mobilization Therapeutic Exercises Modalities Biofeedback Other Therapeutic Interventions NMES Next Visit Focus/Plan Next Note Type Treatment Note Next Visit Plan begin with stretches next visit then pelvic floor work. Continue with NMES next visit
--- NOTE | 2018-02-11 09:57 | PT.OTN ---
Current Diagnoses Mixed incontinence (02/04/18) Physical Therapy Treatment Note PT-OP-A Visit Information Start: 11/25/17 16:23 Freq: Status: Active Protocol: Document 02/04/18 13:20 [facility] (Rec: 02/04/18 13:40 [facility] [email or web address]) Out-Patient Physical Therapy Visit Information Visit Information Visit Type Treatment Note Visit Start Time 12:15 Visit Stop Time 13:00 Total Visit Minutes 45 Visit Number 10 Evaluation Information Evaluation Date 11/25/17 PT-OP-B Current Condition Start: 11/25/17 16:23 Freq: Status: Active Protocol: Document 11/25/17 16:23 [facility] (Rec: 11/25/17 16:58 [facility] [email or web address]) Current Condition History of Current Condition Onset Date 3 1/2 years ago Current Complaints urinary leakage History of Current Condition 26 year old female who underwent a hysterectomy in april of 2017. She notes it was supposed to be a vaginal hysterectomy but due to adhesions between her uterus and bladder it turned into a abdominal incision. She reports following surgery it hurt to void or have a bowel movement for 4 months. She has had 2 deliverys with the last one being 10/10/16. Yudi has a history of pelvic pain that began at age 18. At this time she is no longer experiencing pain but does c/o vaginal dryness. Her chief complaints of symptoms since her hysterectomy include constant bladder leakage throughout the day. She will experience a few drops at a time but this happens frequently all day. She leaks in all positions including laying down and at night. She does wear a pad to bed at night. Yudi also reports she never feels like she empties her bladdera ll the way and that she could go again soon after she voids. She will often have a slow or hesitant urinary stream and has difficulty initiating the stream of urine. Current Functional Impairments (Reported) Functional Limitations- Other urinary leakage throughouts the day, limits recreational activities PT-OP-C Subjective Start: 11/25/17 16:23 Freq: Status: Active Protocol: Document 02/04/18 13:20 [facility] (Rec: 02/04/18 13:40 [facility] [email or web address]) OP-PT Subjective Patient Comments Patient Comments Continues to make improvement. Leakage continues to decrease Patient Reported Progress Improving PT-OP-F Manual Assessment Start: 11/25/17 16:58 Freq: Status: Active Protocol: Document 11/25/17 16:58 [facility] (Rec: 11/25/17 16:59 [facility] [email or web address]) Manual Assessments Soft Tissue Assessment Soft Tissue Mobility Assessment tightness across the suprapubic fascia and right lower abdominal wall and hip. Decreased hip extension on the right PT-OP-I Pelvic Floor Start: 11/25/17 16:23 Freq: Status: Active Protocol: Document 11/25/17 16:23 [facility] (Rec: 11/25/17 16:58 [facility] [email or web address]) Pelvic Floor Assessment Urine Urinary Symptoms Urge Sensation Incomplete Emptying Leakage Size Small Other Leakage Causes leakage is happening constantly throughout the day Nocturia yes approximately 3 times per night Urine Pad Type Panty Liner Pelvic Clock Pelvic Clock 12-3 Atrophy Pelvic Clock 3-6 Guarding Hypertonic Pelvic Clock 6-9 Atrophy Pelvic Clock 9-12 Atrophy SEMG (uV) Baseline 6.56 Recruitment Pattern Poor/Slow Relaxation Poor/Slow Holding Poor/Slow Stability of Hold Poor/Slow SEMG Stability of Rest Poor/Slow Contraction Ability Manual Muscle Testing Left 1 Manual Muscle Testing Right 1 Manual Muscle Testing Anterior 1 Manual Muscle Testing Posterior 1 PT-OP-Q Treatments Start: 11/25/17 16:23 Freq: Status: Active Protocol: Document 02/04/18 13:20 [facility] (Rec: 02/04/18 13:40 [facility] [email or web address]) Therapeutic Exercises Supine Exercises 8 Supine Exercise Name templates for eccentric control and coordiation 7 Supine Exercise Name quick pelvic floor contractions 4 Supine Exercise Name TA with marches Comments trial of both directions 1 Supine Exercise Name pelvic floor isolations with ball squeeze Prone Exercises 2 Prone Exercise Name prone thoracic extensions Comments EMG biofeedback 1 Prone Exercise Name cobra stretch Sidelying Exercises 2 Sidelying Exercise Name sidelying l;eg lifts 1 Sidelying Exercise Name sidelying clam shell Reps/Minutes 2 x 10 Other Exercises 6 Other Exercise Name iliopsoas stretch in tyrell test position 5 Other Exercise Name iliopspoas half kneeling stretch 3 Other Exercise Name supine stretch over the ball Manual Therapy Treatment Manual Techniques 2 Type MET for right pubic upslip Neuro Re-Education Treatment Other Activities 1 Details NMES for the pelvic floor Comments able to feel the sensation at level 2 now and able to feel more overall sensation in the pelvic floor PT-OP-T Assessment and Plan Start: 11/25/17 16:23 Freq: Status: Active Protocol: Document 02/04/18 13:20 [facility] (Rec: 02/04/18 13:40 [facility] [email or web address]) Physical Therapy Assessment Assessment Summary Assessment continues to make progress with physical therapy and resting tone was back down today, added in templates for coordination and eccentric control Physical Therapy Plan Frequency and Duration Frequency of Treatment 1x/Week Duration of Treatment 8 Plan of Care Start Date 01/21/18 Plan of Care End Date 03/17/18 Therapeutic Interventions Therapeutic Interventions Home Exercise Program Manual Therapy Neuromuscular Re-education Patient/Caregiver Education Self-Care/Home Management Soft Tissue Mobilization Therapeutic Exercises Modalities Biofeedback Other Therapeutic Interventions NMES Next Visit Focus/Plan Next Note Type Treatment Note Next Visit Plan review TA stabilization, hip flexor stretch with leg extended, and templates for ecentric control
--- NOTE | 2018-02-11 14:33 | PT.OTN ---
Current Diagnoses Mixed incontinence (02/11/18) Physical Therapy Treatment Note PT-OP-A Visit Information Start: 11/25/17 16:23 Freq: Status: Active Protocol: Document 02/11/18 14:27 [facility] (Rec: 02/11/18 14:33 [facility] [id number]) Out-Patient Physical Therapy Visit Information Visit Information Visit Type Treatment Note Visit Start Time 12:15 Visit Stop Time 01:00 Total Visit Minutes 45 Visit Number 11 PT-OP-B Current Condition Start: 11/25/17 16:23 Freq: Status: Active Protocol: Document 11/25/17 16:23 [facility] (Rec: 11/25/17 16:58 [facility] [id number]) Current Condition History of Current Condition Onset Date 3 1/2 years ago Current Complaints urinary leakage History of Current Condition 26 year old female who underwent a hysterectomy in april of 2017. She notes it was supposed to be a vaginal hysterectomy but due to adhesions between her uterus and bladder it turned into a abdominal incision. She reports following surgery it hurt to void or have a bowel movement for 4 months. She has had 2 deliverys with the last one being 10/10/16. Yudi has a history of pelvic pain that began at age 18. At this time she is no longer experiencing pain but does c/o vaginal dryness. Her chief complaints of symptoms since her hysterectomy include constant bladder leakage throughout the day. She will experience a few drops at a time but this happens frequently all day. She leaks in all positions including laying down and at night. She does wear a pad to bed at night. Yudi also reports she never feels like she empties her bladdera ll the way and that she could go again soon after she voids. She will often have a slow or hesitant urinary stream and has difficulty initiating the stream of urine. Current Functional Impairments (Reported) Functional Limitations- Other urinary leakage throughouts the day, limits recreational activities PT-OP-C Subjective Start: 11/25/17 16:23 Freq: Status: Active Protocol: Document 02/11/18 14:27 [facility] (Rec: 02/11/18 14:33 [facility] [id number]) OP-PT Subjective Patient Comments Patient Comments Yudi reports having a mid back and rib cage spasm/pain this past weekend. Drove to [place] with kids. She notes bladder leakage is continueing to decrease Patient Reported Progress Improving PT-OP-F Manual Assessment Start: 11/25/17 16:58 Freq: Status: Active Protocol: Document 11/25/17 16:58 [facility] (Rec: 11/25/17 16:59 [facility] [email or web address]) Manual Assessments Soft Tissue Assessment Soft Tissue Mobility Assessment tightness across the suprapubic fascia and right lower abdominal wall and hip. Decreased hip extension on the right PT-OP-I Pelvic Floor Start: 11/25/17 16:23 Freq: Status: Active Protocol: Document 11/25/17 16:23 [facility] (Rec: 11/25/17 16:58 [facility] [email or web address]) Pelvic Floor Assessment Urine Urinary Symptoms Urge Sensation Incomplete Emptying Leakage Size Small Other Leakage Causes leakage is happening constantly throughout the day Nocturia yes approximately 3 times per night Urine Pad Type Panty Liner Pelvic Clock Pelvic Clock 12-3 Atrophy Pelvic Clock 3-6 Guarding Hypertonic Pelvic Clock 6-9 Atrophy Pelvic Clock 9-12 Atrophy SEMG (uV) Baseline 6.56 Recruitment Pattern Poor/Slow Relaxation Poor/Slow Holding Poor/Slow Stability of Hold Poor/Slow SEMG Stability of Rest Poor/Slow Contraction Ability Manual Muscle Testing Left 1 Manual Muscle Testing Right 1 Manual Muscle Testing Anterior 1 Manual Muscle Testing Posterior 1 PT-OP-Q Treatments Start: 11/25/17 16:23 Freq: Status: Active Protocol: Document 02/11/18 14:27 [facility] (Rec: 02/11/18 14:33 [facility] [email or web address]) Manual Therapy Treatment Soft Tissue Mobilization 2 Body Location STM over the thoracic spine region 1 Body Location suprapubic fascia Mobilization Type Myofascial Release Manual Techniques 1 Type ILU massage over the abdomen Neuro Re-Education Treatment Other Activities 1 Details NMES for the pelvic floor Comments able to feel the sensation at level 2 now and able to feel more overall sensation in the pelvic floor PT-OP-T Assessment and Plan Start: 11/25/17 16:23 Freq: Status: Active Protocol: Document 02/11/18 14:27 [facility] (Rec: 02/11/18 14:33 [facility] [email or web address]) Physical Therapy Assessment Assessment Summary Assessment right sided mid thoracic spine was swollen today , advised Yudi to ice at home. She is working on getting a foam roll stretch for home. Still tight with scar tissue over the bladder but her illiopsoas length is much improved Physical Therapy Plan Frequency and Duration Frequency of Treatment 1x/Week Duration of Treatment 8 Plan of Care Start Date 01/21/18 Plan of Care End Date 03/17/18 Therapeutic Interventions Therapeutic Interventions Home Exercise Program Manual Therapy Neuromuscular Re-education Patient/Caregiver Education Self-Care/Home Management Soft Tissue Mobilization Therapeutic Exercises Modalities Biofeedback Other Therapeutic Interventions NMES Next Visit Focus/Plan Next Note Type Treatment Note Next Visit Plan EMG biofeedback next visit again with templates for coordination and eccentric control
--- NOTE | 2018-02-11 14:33 | PT.OTN ---
Current Diagnoses Mixed incontinence (02/11/18) Physical Therapy Treatment Note PT-OP-A Visit Information Start: 11/25/17 16:23 Freq: Status: Active Protocol: Document 02/11/18 14:27 [facility] (Rec: 02/11/18 14:33 [facility] [email or web address]) Out-Patient Physical Therapy Visit Information Visit Information Visit Type Treatment Note Visit Start Time 12:15 Visit Stop Time 01:00 Total Visit Minutes 45 Visit Number 11 PT-OP-B Current Condition Start: 11/25/17 16:23 Freq: Status: Active Protocol: Document 11/25/17 16:23 [facility] (Rec: 11/25/17 16:58 [facility] [id number]) Current Condition History of Current Condition Onset Date 3 1/2 years ago Current Complaints urinary leakage History of Current Condition 26 year old female who underwent a hysterectomy in april of 2017. She notes it was supposed to be a vaginal hysterectomy but due to adhesions between her uterus and bladder it turned into a abdominal incision. She reports following surgery it hurt to void or have a bowel movement for 4 months. She has had 2 deliverys with the last one being 10/10/16. Yudi has a history of pelvic pain that began at age 18. At this time she is no longer experiencing pain but does c/o vaginal dryness. Her chief complaints of symptoms since her hysterectomy include constant bladder leakage throughout the day. She will experience a few drops at a time but this happens frequently all day. She leaks in all positions including laying down and at night. She does wear a pad to bed at night. Yudi also reports she never feels like she empties her bladdera ll the way and that she could go again soon after she voids. She will often have a slow or hesitant urinary stream and has difficulty initiating the stream of urine. Current Functional Impairments (Reported) Functional Limitations- Other urinary leakage throughouts the day, limits recreational activities PT-OP-C Subjective Start: 11/25/17 16:23 Freq: Status: Active Protocol: Document 02/11/18 14:27 [facility] (Rec: 02/11/18 14:33 [facility] [email or web address]) OP-PT Subjective Patient Comments Patient Comments Yudi reports having a mid back and rib cage spasm/pain this past weekend. Drove to [place] with kids. She notes bladder leakage is continueing to decrease Patient Reported Progress Improving PT-OP-F Manual Assessment Start: 11/25/17 16:58 Freq: Status: Active Protocol: Document 11/25/17 16:58 [facility] (Rec: 11/25/17 16:59 [facility] [email or web address]) Manual Assessments Soft Tissue Assessment Soft Tissue Mobility Assessment tightness across the suprapubic fascia and right lower abdominal wall and hip. Decreased hip extension on the right PT-OP-I Pelvic Floor Start: 11/25/17 16:23 Freq: Status: Active Protocol: Document 11/25/17 16:23 [facility] (Rec: 11/25/17 16:58 [facility] [email or web address]) Pelvic Floor Assessment Urine Urinary Symptoms Urge Sensation Incomplete Emptying Leakage Size Small Other Leakage Causes leakage is happening constantly throughout the day Nocturia yes approximately 3 times per night Urine Pad Type Panty Liner Pelvic Clock Pelvic Clock 12-3 Atrophy Pelvic Clock 3-6 Guarding Hypertonic Pelvic Clock 6-9 Atrophy Pelvic Clock 9-12 Atrophy SEMG (uV) Baseline 6.56 Recruitment Pattern Poor/Slow Relaxation Poor/Slow Holding Poor/Slow Stability of Hold Poor/Slow SEMG Stability of Rest Poor/Slow Contraction Ability Manual Muscle Testing Left 1 Manual Muscle Testing Right 1 Manual Muscle Testing Anterior 1 Manual Muscle Testing Posterior 1 PT-OP-Q Treatments Start: 11/25/17 16:23 Freq: Status: Active Protocol: Document 02/11/18 14:27 [facility] (Rec: 02/11/18 14:33 [facility] [email or web address]) Manual Therapy Treatment Soft Tissue Mobilization 2 Body Location STM over the thoracic spine region 1 Body Location suprapubic fascia Mobilization Type Myofascial Release Manual Techniques 1 Type ILU massage over the abdomen Neuro Re-Education Treatment Other Activities 1 Details NMES for the pelvic floor Comments able to feel the sensation at level 2 now and able to feel more overall sensation in the pelvic floor PT-OP-T Assessment and Plan Start: 11/25/17 16:23 Freq: Status: Active Protocol: Document 02/11/18 14:27 [facility] (Rec: 02/11/18 14:33 [facility] [email or web address]) Physical Therapy Assessment Assessment Summary Assessment right sided mid thoracic spine was swollen today , advised Yudi to ice at home. She is working on getting a foam roll stretch for home. Still tight with scar tissue over the bladder but her illiopsoas length is much improved Physical Therapy Plan Frequency and Duration Frequency of Treatment 1x/Week Duration of Treatment 8 Plan of Care Start Date 01/21/18 Plan of Care End Date 03/17/18 Therapeutic Interventions Therapeutic Interventions Home Exercise Program Manual Therapy Neuromuscular Re-education Patient/Caregiver Education Self-Care/Home Management Soft Tissue Mobilization Therapeutic Exercises Modalities Biofeedback Other Therapeutic Interventions NMES Next Visit Focus/Plan Next Note Type Treatment Note Next Visit Plan EMG biofeedback next visit again with templates for coordination and eccentric control
--- NOTE | 2018-02-25 13:35 | PT.OTN ---
Current Diagnoses Mixed incontinence (02/25/18) Physical Therapy Treatment Note PT-OP-A Visit Information Start: 11/25/17 16:23 Freq: Status: Active Protocol: Document 02/25/18 13:25 [facility] (Rec: 02/25/18 13:35 [facility] [email or web address]) Out-Patient Physical Therapy Visit Information Visit Information Visit Type Treatment Note Visit Start Time 12:15 Visit Stop Time 13:00 Total Visit Minutes 45 Visit Number 12 Evaluation Information Evaluation Date 11/25/17 PT-OP-B Current Condition Start: 11/25/17 16:23 Freq: Status: Active Protocol: Document 11/25/17 16:23 [facility] (Rec: 11/25/17 16:58 [facility] [email or web address]) Current Condition History of Current Condition Onset Date 3 1/2 years ago Current Complaints urinary leakage History of Current Condition 26 year old female who underwent a hysterectomy in april of 2017. She notes it was supposed to be a vaginal hysterectomy but due to adhesions between her uterus and bladder it turned into a abdominal incision. She reports following surgery it hurt to void or have a bowel movement for 4 months. She has had 2 deliverys with the last one being 10/10/16. Yudi has a history of pelvic pain that began at age 18. At this time she is no longer experiencing pain but does c/o vaginal dryness. Her chief complaints of symptoms since her hysterectomy include constant bladder leakage throughout the day. She will experience a few drops at a time but this happens frequently all day. She leaks in all positions including laying down and at night. She does wear a pad to bed at night. Yudi also reports she never feels like she empties her bladdera ll the way and that she could go again soon after she voids. She will often have a slow or hesitant urinary stream and has difficulty initiating the stream of urine. Current Functional Impairments (Reported) Functional Limitations- Other urinary leakage throughouts the day, limits recreational activities PT-OP-C Subjective Start: 11/25/17 16:23 Freq: Status: Active Protocol: Document 02/25/18 13:25 [facility] (Rec: 02/25/18 13:35 [facility] [email or web address]) OP-PT Subjective Patient Comments Patient Comments Yudi reports she is doing much better overall. She is down to a panty liner and most of the time only needing to change it one time per day Patient Reported Progress Improving PT-OP-F Manual Assessment Start: 11/25/17 16:58 Freq: Status: Active Protocol: Document 11/25/17 16:58 [facility] (Rec: 11/25/17 16:59 [facility] [email or web address]) Manual Assessments Soft Tissue Assessment Soft Tissue Mobility Assessment tightness across the suprapubic fascia and right lower abdominal wall and hip. Decreased hip extension on the right PT-OP-I Pelvic Floor Start: 11/25/17 16:23 Freq: Status: Active Protocol: Document 11/25/17 16:23 [facility] (Rec: 11/25/17 16:58 [facility] [email or web address]) Pelvic Floor Assessment Urine Urinary Symptoms Urge Sensation Incomplete Emptying Leakage Size Small Other Leakage Causes leakage is happening constantly throughout the day Nocturia yes approximately 3 times per night Urine Pad Type Panty Liner Pelvic Clock Pelvic Clock 12-3 Atrophy Pelvic Clock 3-6 Guarding Hypertonic Pelvic Clock 6-9 Atrophy Pelvic Clock 9-12 Atrophy SEMG (uV) Baseline 6.56 Recruitment Pattern Poor/Slow Relaxation Poor/Slow Holding Poor/Slow Stability of Hold Poor/Slow SEMG Stability of Rest Poor/Slow Contraction Ability Manual Muscle Testing Left 1 Manual Muscle Testing Right 1 Manual Muscle Testing Anterior 1 Manual Muscle Testing Posterior 1 PT-OP-Q Treatments Start: 11/25/17 16:23 Freq: Status: Active Protocol: Document 02/25/18 13:25 [facility] (Rec: 02/25/18 13:35 [facility] [email or web address]) Therapeutic Exercises Supine Exercises 9 Supine Exercise Name templates for eccentric control and coordination 7 Supine Exercise Name quick pelvic floor contractions 1 Supine Exercise Name pelvic floor isolations with ball squeeze Sidelying Exercises 1 Sidelying Exercise Name sidelying clam shell Reps/Minutes 2 x 10 Manual Therapy Treatment Soft Tissue Mobilization 1 Body Location suprapubic fascia Mobilization Type Myofascial Release Neuro Re-Education Treatment Other Activities 1 Details NMES for the pelvic floor PT-OP-T Assessment and Plan Start: 11/25/17 16:23 Freq: Status: Active Protocol: Document 02/25/18 13:25 [facility] (Rec: 02/25/18 13:35 [facility] [email or web address]) Physical Therapy Assessment Assessment Summary Assessment Decreased mid thoracic pain this week and Yudi was able to tolerate all ther ex. Began eccentric contractions of the pelvic floor. Much reduced scar tissue over the abdomen today. Physical Therapy Plan Frequency and Duration Frequency of Treatment 1x/Week Duration of Treatment 8 Plan of Care Start Date 01/21/18 Plan of Care End Date 03/17/18 Therapeutic Interventions Therapeutic Interventions Home Exercise Program Manual Therapy Neuromuscular Re-education Patient/Caregiver Education Self-Care/Home Management Soft Tissue Mobilization Therapeutic Exercises Modalities Biofeedback Other Therapeutic Interventions NMES Next Visit Focus/Plan Next Note Type Progress Note Next Visit Plan review all established dynamic stabilization exercises next visit
--- NOTE | 2018-03-05 08:49 | PT.OTN ---
Current Diagnoses Mixed incontinence (03/04/18) Physical Therapy Treatment Note PT-OP-A Visit Information Start: 11/25/17 16:23 Freq: Status: Active Protocol: Document 03/04/18 12:15 [facility] (Rec: 03/05/18 08:49 [facility] [email or web address]) Out-Patient Physical Therapy Visit Information Visit Information Visit Type Treatment Note Visit Start Time 12:15 Visit Stop Time 13:00 Total Visit Minutes 45 Visit Number 13 PT-OP-B Current Condition Start: 11/25/17 16:23 Freq: Status: Active Protocol: Document 11/25/17 16:23 [facility] (Rec: 11/25/17 16:58 [facility] [email or web address]) Current Condition History of Current Condition Onset Date 3 1/2 years ago Current Complaints urinary leakage History of Current Condition 26 year old female who underwent a hysterectomy in april of 2017. She notes it was supposed to be a vaginal hysterectomy but due to adhesions between her uterus and bladder it turned into a abdominal incision. She reports following surgery it hurt to void or have a bowel movement for 4 months. She has had 2 deliverys with the last one being 10/10/16. Yudi has a history of pelvic pain that began at age 18. At this time she is no longer experiencing pain but does c/o vaginal dryness. Her chief complaints of symptoms since her hysterectomy include constant bladder leakage throughout the day. She will experience a few drops at a time but this happens frequently all day. She leaks in all positions including laying down and at night. She does wear a pad to bed at night. Yudi also reports she never feels like she empties her bladdera ll the way and that she could go again soon after she voids. She will often have a slow or hesitant urinary stream and has difficulty initiating the stream of urine. Current Functional Impairments (Reported) Functional Limitations- Other urinary leakage throughouts the day, limits recreational activities PT-OP-C Subjective Start: 11/25/17 16:23 Freq: Status: Active Protocol: Document 03/04/18 12:15 [facility] (Rec: 03/05/18 08:49 [facility] [email or web address]) OP-PT Subjective Patient Comments Patient Comments Continues to improve, working on exercises and decreasing c/ o leakage PT-OP-F Manual Assessment Start: 11/25/17 16:58 Freq: Status: Active Protocol: Document 11/25/17 16:58 [facility] (Rec: 11/25/17 16:59 [facility] [email or web address]) Manual Assessments Soft Tissue Assessment Soft Tissue Mobility Assessment tightness across the suprapubic fascia and right lower abdominal wall and hip. Decreased hip extension on the right PT-OP-I Pelvic Floor Start: 11/25/17 16:23 Freq: Status: Active Protocol: Document 11/25/17 16:23 [facility] (Rec: 11/25/17 16:58 [facility] [email or web address]) Pelvic Floor Assessment Urine Urinary Symptoms Urge Sensation Incomplete Emptying Leakage Size Small Other Leakage Causes leakage is happening constantly throughout the day Nocturia yes approximately 3 times per night Urine Pad Type Panty Liner Pelvic Clock Pelvic Clock 12-3 Atrophy Pelvic Clock 3-6 Guarding Hypertonic Pelvic Clock 6-9 Atrophy Pelvic Clock 9-12 Atrophy SEMG (uV) Baseline 6.56 Recruitment Pattern Poor/Slow Relaxation Poor/Slow Holding Poor/Slow Stability of Hold Poor/Slow SEMG Stability of Rest Poor/Slow Contraction Ability Manual Muscle Testing Left 1 Manual Muscle Testing Right 1 Manual Muscle Testing Anterior 1 Manual Muscle Testing Posterior 1 PT-OP-Q Treatments Start: 11/25/17 16:23 Freq: Status: Active Protocol: Document 03/04/18 12:15 [facility] (Rec: 03/05/18 08:49 [facility] [email or web address]) Therapeutic Exercises Prone Exercises 2 Prone Exercise Name prone thoracic extensions Comments EMG biofeedback 1 Prone Exercise Name cobra stretch Sidelying Exercises 2 Sidelying Exercise Name sidelying l;eg lifts 1 Sidelying Exercise Name sidelying clam shell Reps/Minutes 2 x 10 Other Exercises 6 Other Exercise Name iliopsoas stretch in tyrell test position 5 Other Exercise Name iliopspoas half kneeling stretch 4 Other Exercise Name alee pose 3 Other Exercise Name supine stretch over the ball 2 Other Exercise Name TA with opp arms and opp legs 1 Other Exercise Name quadraped cat cow and TA facilitation Manual Therapy Treatment Manual Techniques 2 Type MET for right pubic upslip PT-OP-T Assessment and Plan Start: 11/25/17 16:23 Freq: Status: Active Protocol: Document 03/04/18 12:15 [facility] (Rec: 03/05/18 08:49 [facility] [email or web address]) Physical Therapy Assessment Assessment Summary Assessment improving core strength and decreased symptoms. Yudi will work on her one for a month and then recheck in with PT to revise her exercises Physical Therapy Plan Frequency and Duration Frequency of Treatment 1x/Week Duration of Treatment 8 Plan of Care Start Date 01/21/18 Plan of Care End Date 03/17/18 Next Visit Focus/Plan Next Note Type Treatment Note Next Visit Plan review all established dynamic stabilization exercises next visit
--- NOTE | 2018-04-16 16:47 | PT.OTN ---
Current Diagnoses Mixed incontinence (04/16/18) Physical Therapy Treatment Note PT-OP-A Visit Information Start: 11/25/17 16:23 Freq: Status: Active Protocol: Document 04/16/18 16:35 [facility] (Rec: 04/16/18 16:44 [facility] [email or web address]) Out-Patient Physical Therapy Visit Information Visit Information Visit Type Progress Note Visit Start Time 13:00 Visit Stop Time 13:45 Total Visit Minutes 45 Visit Number 14 Evaluation Information Evaluation Date 11/25/17 PT-OP-B Current Condition Start: 11/25/17 16:23 Freq: Status: Active Protocol: Document 11/25/17 16:23 [facility] (Rec: 11/25/17 16:58 [facility] [email or web address]) Current Condition History of Current Condition Onset Date 3 1/2 years ago Current Complaints urinary leakage History of Current Condition 26 year old female who underwent a hysterectomy in april of 2017. She notes it was supposed to be a vaginal hysterectomy but due to adhesions between her uterus and bladder it turned into a abdominal incision. She reports following surgery it hurt to void or have a bowel movement for 4 months. She has had 2 deliverys with the last one being 10/10/16. Yudi has a history of pelvic pain that began at age 18. At this time she is no longer experiencing pain but does c/o vaginal dryness. Her chief complaints of symptoms since her hysterectomy include constant bladder leakage throughout the day. She will experience a few drops at a time but this happens frequently all day. She leaks in all positions including laying down and at night. She does wear a pad to bed at night. Yudi also reports she never feels like she empties her bladder all the way and that she could go again soon after she voids. She will often have a slow or hesitant urinary stream and has difficulty initiating the stream of urine. Current Functional Impairments (Reported) Functional Limitations- Other urinary leakage throughout the day, limits recreational activities PT-OP-C Subjective Start: 11/25/17 16:23 Freq: Status: Active Protocol: Document 04/16/18 16:35 [facility] (Rec: 04/16/18 16:44 [facility] [email or web address]) OP-PT Subjective Patient Comments Patient Comments Yudi reports she is doing better wtih decreased complaints of leakage overall and no pain with intercourse. She will have some days where she does not experience any leakage and some days she will note some with increased activity. She can go all night without waking to void Patient Reported Progress Improving PT-OP-F Manual Assessment Start: 11/25/17 16:58 Freq: Status: Active Protocol: Document 11/25/17 16:58 [facility] (Rec: 11/25/17 16:59 [facility] [email or web address]) Manual Assessments Soft Tissue Assessment Soft Tissue Mobility Assessment tightness across the suprapubic fascia and right lower abdominal wall and hip. Decreased hip extension on the right PT-OP-I Pelvic Floor Start: 11/25/17 16:23 Freq: Status: Active Protocol: Document 04/16/18 16:35 [facility] (Rec: 04/16/18 16:44 [facility] [email or web address]) Pelvic Floor Assessment SEMG (uV) Baseline 3 Recruitment Pattern Good Relaxation Fair Holding Fair Stability of Hold Good SEMG Stability of Rest Fair Comments Pelvic Floor Comments improved resting tone of the pelvic floor and improved endurance of the pelvic floor. Yudi has full sensation now with pelvic floor contraction PT-OP-Q Treatments Start: 11/25/17 16:23 Freq: Status: Active Protocol: Document 04/16/18 16:45 [facility] (Rec: 04/16/18 16:46 [facility] [email or web address]) Therapeutic Exercises Supine Exercises 9 Supine Exercise Name templates for eccentric control and coordination 8 Supine Exercise Name templates for eccentric control and coordiation 7 Supine Exercise Name quick pelvic floor contractions 6 Supine Exercise Name supine adductor squeeze 5 Supine Exercise Name foam roll stretch 4 Supine Exercise Name TA with marches Comments trial of both directions 3 Supine Exercise Name roll outs with theraband Reps/Minutes 3x 10 reps 2 Supine Exercise Name modified squat stretch Side bilateral Reps/Minutes hold 1-2 minutes 1 Supine Exercise Name pelvic floor isolations with ball squeeze Side bilateral Reps/Minutes 3 x 10 reps Sidelying Exercises 2 Sidelying Exercise Name sidelying l;eg lifts 1 Sidelying Exercise Name sidelying clam shell Reps/Minutes 2 x 10 Other Exercises 6 Other Exercise Name iliopsoas stretch in tyrell test position 5 Other Exercise Name iliopspoas half kneeling stretch 4 Other Exercise Name alee pose 3 Other Exercise Name supine stretch over the ball 2 Other Exercise Name TA with opp arms and opp legs 1 Other Exercise Name quadraped cat cow and TA facilitation Manual Therapy Treatment Soft Tissue Mobilization 1 Body Location suprapubic fascia Mobilization Type Myofascial Release Comments scar tissue release over the c -section scar Manual Techniques 2 Type MET for right pubic upslip PT-OP-T Assessment and Plan Start: 11/25/17 16:23 Freq: Status: Active Protocol: Document 04/16/18 16:35 [facility] (Rec: 04/16/18 16:44 [facility] [email or web address]) Physical Therapy Assessment Assessment Summary Assessment Yudi returns to PT today after working on her own since mid February. She notes good progress with decreased leakage and decreased pain with intercourse. She did show decreased tone on EMG biofeedback today at rest. Strength is a average of 19.2 uv with a max of 39.8 uv today for 10 second hold time. She is able to feel her pelvic floor contractions now which is a great success for her. Yudi has 1 visit a month for the next two months to progress her home program. She will then be discharged. Physical Therapy Plan Frequency and Duration Frequency of Treatment Every Other Week Duration of Treatment 8 Plan of Care Start Date 04/16/18 Plan of Care End Date 06/14/18 Therapeutic Interventions Therapeutic Interventions Home Exercise Program Manual Therapy Neuromuscular Re-education Patient/Caregiver Education Self-Care/Home Management Soft Tissue Mobilization Therapeutic Exercises Modalities Biofeedback Other Therapeutic Interventions NMES Next Visit Focus/Plan Next Note Type Treatment Note Next Visit Plan review all established dynamic stabilization exercises next visit
--- NOTE | 2018-04-16 16:49 | PT.OPPOC ---
Current Diagnoses Mixed incontinence (04/16/18) Provider Visit Care Team Role Provider Type TAMERA Evans Primary Care Provider Advanced Embedded Case Manager Specialty: Family Practice Address: [address] [place] [address], [id number] Email: [email or web address] Lynsey Vincent MD Attending Provider Physician Specialty: RELIEF OPERATOR Address: [address] [place] [address], [id number] Email: [email or web address] Plan Of Care PT-OP-T Assessment and Plan Start: 11/25/17 16:23 Freq: Status: Active Protocol: Document 04/16/18 16:35 [facility] (Rec: 04/16/18 16:44 AM[facility] [email or web address]) Physical Therapy Assessment Assessment Summary Assessment Yudi returns to PT today after working on her own since mid February. She notes good progress with decreased leakage and decreased pain with intercourse. She did show decreased tone on EMG biofeedback today at rest. Strength is a average of 19.2 uv with a max of 39.8 uv today for 10 second hold time. She is able to feel her pelvic floor contractions now which is a great success for her. Yudi has 1 visit a month for the next two months to progress her home program. She will then be discharged. Physical Therapy Plan Frequency and Duration Frequency of Treatment Every Other Week Duration of Treatment 8 Plan of Care Start Date 04/16/18 Plan of Care End Date 06/14/18 Therapeutic Interventions Therapeutic Interventions Home Exercise Program Manual Therapy Neuromuscular Re-education Patient/Caregiver Education Self-Care/Home Management Soft Tissue Mobilization Therapeutic Exercises Modalities Biofeedback Other Therapeutic Interventions NMES Next Visit Focus/Plan Next Note Type Treatment Note Next Visit Plan review all established dynamic stabilization exercises next visit Plan of Care Dates Plan of Care Start Date 04/16/18 Plan of Care End Date 06/14/18 Please Sign and Return: I have reviewed this Plan of Care and certify that the skilled therapy services above are required to meet the patient?s needs. Physician Signature Date Printed Name and Credentials Clinical Instructor Signature Printed Name and Credentials
== END 2019-01-29 12:38 ==
LOC: PHYS 13:00
PROVIDERS: PCP Internal Medicine; Visit Provider Obstetrics & Gynecology
DX: N39.46 Mixed incontinence (principal)
CPT/HCPCS: 97110; 97112; 97140; 97161; 97530

== ENCOUNTER → 2018-11-25 16:05 | Outpatient (CLI) | payer OTHER, SELFPAY ==
--- NOTE | 2018-11-25 | DI.RAD.S_ITS ---
PROCEDURE: XR THORACIC SPINE 3V INDICATIONS: PAIN TECHNIQUE: 3-views of the thoracic spine were acquired. COMPARISON: None. FINDINGS: Bones: No fractures or dislocations. No suspicious bony lesions. 12 pairs of ribs are noted, and appear intact where visualized. No acute compression fractures. Minimal degenerative endplate changes involving the mid thoracic spine. Soft tissues: No paravertebral stripe thickening. Surgical clips in the right upper abdomen compatible with prior cholecystectomy. IMPRESSION: Thoracic spine without acute radiographic abnormalities. Minimal mid thoracic spondylosis. Dictated by: Sanya Julien M.D. on 11/25/2018 at 17:44 Approved by: Sanya Julien M.D. on 11/25/2018 at 17:45
--- NOTE | 2018-11-25 | DI.RAD.S_ITS ---
PROCEDURE: XR LUMBAR SPINE 2-3V INDICATIONS: PAIN TECHNIQUE: 3 views of the lumbar spine were acquired. COMPARISON: [facility], , -SPINE 2-3 VIEWS, 08/13/2011, 11:42. FINDINGS: Bones: 5 [id number] vertebrae are present. There is normal bony alignment. No acute vertebral body compression fractures. No suspicious bony lesions. Minimal spondylitic changes at the thoracolumbar junction. Soft tissues: Overlying bowel gas pattern is normal. No suspicious soft tissue calcifications. Post cholecystectomy clips are present. IMPRESSION: Minimal thoracolumbar junction spondylosis. No acute radiographic abnormalities. Dictated by: Sanya Julien M.D. on 11/25/2018 at 17:46 Approved by: Sanya Julien M.D. on 11/25/2018 at 17:47
--- NOTE | 2018-11-25 | DI.RAD.S_ITS ---
PROCEDURE: XR CERVICAL SPINE 2V OR 3V INDICATIONS: radicular symptoms bilateral lower extremity and left arm weakness TECHNIQUE: 3 view(s) of the cervical spine were acquired. COMPARISON: None. FINDINGS: Bones: No fractures or dislocations to the T2 level. The lateral masses of C1 appear intact on the odontoid view. C1-C2 relationship is preserved. There is straightening of cervical lordosis with gentle reversal centered at C4-5. No suspicious bony lesions. Soft tissues: No prevertebral soft tissue swelling. IMPRESSION: 1. Cervical spine without acute osseous abnormalities. 2. Loss of cervical lordosis with slight gentle reversal centered at C4-5 likely related to positioning and/or concurrent muscle spasms. If there is persistent clinical concern with focal neurological deficits, consider further evaluation with MRI. Dictated by: Sanya Julien M.D. on 11/25/2018 at 17:42 Approved by: Sanya Julien M.D. on 11/25/2018 at 17:44
== END ==
PROVIDERS: PCP Internal Medicine; Visit Provider Internal Medicine
DX: M54.16 Radiculopathy, lumbar region (principal); M54.5 Low back pain; M54.6 Pain in thoracic spine; R32 Unspecified urinary incontinence; R53.1 Weakness
CPT/HCPCS: 72040; 72072; 72100

== ENCOUNTER → 2018-12-10 15:48 | Outpatient (CLI) | payer OTHER, SELFPAY ==
--- NOTE | 2018-12-10 | DI.MRI.S_ITS ---
PROCEDURE: MR HEAD/BRAIN WO/W CON INDICATIONS: MIGRAINES,FACIAL NUMBNESS,TINGLING BILAT LEGS TECHNIQUE: Noncontrast axial T1 spin echo, axial T2 fast spin echo, sagittal and axial FLAIR, coronal T2 fast spin echo, axial gradient echo, axial diffusion and ADC through the brain. After the administration of contrast, axial and coronal 3D VIBE or T1 spin echo with fat saturation through the brain. COMPARISON: None. FINDINGS: Image quality: Excellent. CSF Spaces: Basal cisterns are patent. No extra-axial fluid collections. Ventricles are normal in size and shape. Brain: No midline shift. No intracranial bleeds or masses. No abnormal intracranial enhancement. The brainstem appears normal. Diffusion-weighted images demonstrate no acute ischemic insults. No chronic ischemic insults. Normal intravascular flow voids are present. Skull and face: Calvarial marrow is normal in signal. Orbits appear normal. Sinuses: Bilateral ethmoid sinus and periosteal thickening and patchy opacification. Bilateral maxillary sinus mucoperiosteal thickening. Small left maxillary sinus air-fluid level. IMPRESSION: 1. Normal appearing brain parenchyma. No evidence of acute stroke, hemorrhage, or mass. 2. Mild acute on extensive chronic sinus disease. Dictated by: Norman Easton M.D. on 12/10/2018 at 17:22 Approved by: Norman Easton M.D. on 12/10/2018 at 17:24
== END ==
PROVIDERS: PCP Internal Medicine; Visit Provider Internal Medicine
DX: G43.909 Migraine, unspecified, not intractable, without status migrainosus (principal); J01.80 Other acute sinusitis; J32.8 Other chronic sinusitis; R20.0 Anesthesia of skin
CPT/HCPCS: 70553

== ENCOUNTER 2019-03-02 13:45 | Outpatient (RCR) | payer OTHER, SELFPAY ==
--- NOTE | 2019-01-07 09:34 | PT.OIE ---
Current Diagnoses Radiculopathy, cervical region (01/05/19) Dorsalgia, unspecified (01/05/19) Past Medical History (Last Updated 10/20/17 @ 11:01 by Bren Romero) Insulin resistance (Chronic) Past Surgical History (Last Updated 10/20/17 @ 11:00 by Bren Romero) History of salpingectomy (Resolved 05/12/17) History of third molar tooth extraction (Resolved 2004) Status post delivery (Resolved 05/27/14) Status post cone biopsy of cervix (Resolved 10/21/14) Status post hysterectomy (Resolved 05/12/17) Status post laparoscopy (Resolved 2010) Status post loop electrosurgical excision procedure (LEEP) of cervix (Resolved 09/02/14) Visit Care Team Role Provider Type TAMERA Evans Attending Provider Advanced Bar Turner Primary Care Provider Specialty: Family Practice Address: [address] [place] [address], [facility] Email: [email or web address] Initial Evaluation PT-OP-A Visit Information Start: 01/05/19 09:19 Freq: Status: Active Protocol: Document 01/05/19 09:45 AM[facility] (Rec: 01/06/19 09:42 AMH [email or web address]) Out-Patient Physical Therapy Visit Information Visit Information Visit Type Initial Evaluation Visit Note 28 year old female 2 para 2 with chronic back and neck pain. 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 Visit Start Time 09:45 Visit Stop Time 10:30 Total Visit Minutes 45 Visit Number 1 Evaluation Information Evaluation Date 01/05/19 PT-OP-B Current Condition Start: 01/05/19 09:19 Freq: Status: Active Protocol: Document 01/05/19 09:45 AMH (Rec: 01/06/19 09:42 AMH [email or web address]) Current Condition History of Current Condition Onset Date 1 year ago Current Complaints c/o cervical, thoracic, lumbar pain History of Current Condition 28 year old female 2 para 2 with chronic back and neck pain. 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 She was seen for pelvic floor PT following her hysterectomy. She has recent X-rays taken that reveal minimal mild throacic spondylosis, loss of cervical lordosis and minimal thoraco lumbar junction spondylosis. Yudi reports her pain worsens as the day goes on. The majority of her pain is located in the thoraco lumbar region with pain rated 6-7/10. She also reports left rib cage paint hat seems to wrap around from the back. Her neck pain is rated 4/10. Other past medical history includes Cholecystectomy, jaw pain, dizziness, headaches Treatment Goals Patient/Caregiver Goals The patients goals include being able to walk around [facility] without as much pain with her family in April of 2019. Prior Functional Status Baseline Function- ADL's Independent Baseline Function- Mobility Independent Current Functional Impairments (Reported) Functional Limitations- ADL's pain with ADL's that require bending or lifting, sleep is disturbed, pt is limited to being on her feet for no more than a hour and a half at a time due to pain. PT-OP-C Subjective Start: 01/05/19 09:19 Freq: Status: Active Protocol: Document 01/05/19 09:45 [facility] (Rec: 01/06/19 11:21 [facility] [email or web address]) Patient Questionnaires Oswestry Low Back Index Oswestry Impairment 1 to 19% Impaired (Score 1-19) OP-PT Pain Assessment Pain Assessment Grid Paper Pain Assessment Grid Completed Yes Location lumbar spine Intensity 4 Scale Used Numeric (1 - 10) thoracic pain Pain Location Details thoracolumbar junction and wrapping into the left rib cage Intensity 7 Frequency worse as the day progresses cervical spine Intensity 4 Scale Used Numeric (1 - 10) PT-OP-F Manual Assessment Start: 01/05/19 09:19 Freq: Status: Active Protocol: Document 01/05/19 09:45 [facility] (Rec: 01/06/19 11:21 [facility] [email or web address]) Manual Assessments Soft Tissue Assessment Soft Tissue Mobility Assessment very tight and guarded thoracic and lumbar paraspinals, fascial restrictions in the left quadratus lumborum and throacolumbar fascia, restrictions in the left greater than right iliopsoas Joint Mobility Assessment Joint Mobility Assessment increased lumbar lorosis with hinge seen at the L4-L5 vertebrae, throacic spine is rotated right, increased kyphosis in the thoracic spine , hypomobility of thoracic extension PT-OP-J Posture/Palpation/Skin Start: 01/05/19 09:19 Freq: Status: Active Protocol: Document 01/05/19 09:45 [facility] (Rec: 01/06/19 11:21 AMH [email or web address]) Posture Evaluation Position Standing Evaluation View Lateral Head/C-Spine Posture Flexed,C-Spine Flattened T-Spine Posture Rotation Right,Increased Kyphosis Thorax Posture (R) Prominent L-Spine Posture Increased Lordosis Shoulder Posture (L) Forward,(R) Forward Comments Posture Comments pt has visable left sided muscle guarding raising the left pelvis, there is a visable hinge in the L4-5 junction and thoracic spine is rotated right, forward head and thoracic posture. PT-OP-K Range of Motion Start: 01/05/19 09:19 Freq: Status: Active Protocol: Document 01/05/19 09:45 [facility] (Rec: 01/07/19 09:12 AMH [email or web address]) Lumbar Spine Range of Motion Lumbar Spine Active Testing Position Standing Flexion 60 Extension 10 Rotation Left 30 Rotation Right 30 Lateral Flexion Left 10 Lateral Flexion Right 10 ROM Limitations Soft Tissue Tightness,Muscle Tone,Pain Comments hinges at L4-5 and extension increases pain PT-OP-M Strength Start: 01/05/19 09:19 Freq: Status: Active Protocol: Document 01/05/19 09:45 [facility] (Rec: 01/07/19 09:29 AMH [email or web address]) Trunk Strength Trunk Manual Muscle Testing Testing Position Supine Core Stabilization poor transverse abdominal activation and Yudi notes she is still numb from her C- section scar PT-OP-Q Treatments Start: 01/05/19 09:19 Freq: Status: Active Protocol: Document 01/05/19 09:45 [facility] (Rec: 01/07/19 09:33 AMH [email or web address]) Therapeutic Exercises Sitting Exercises 1 Sitting Exercise Name seated sidebending stretch Side bilateral Reps/Minutes x 5 reps each Other Exercises 2 Other Exercise Name quadruped cat cow and sidebends Reps/Minutes x 10 1 Other Exercise Name cervical retraction Reps/Minutes x 5 Manual Therapy Treatment Soft Tissue Mobilization 2 Body Location STM over the thoracic spine region Mobilization Type Myofascial Release 1 Body Location left sidelying QL release Mobilization Type Myofascial Release PT-OP-T Assessment and Plan Start: 01/05/19 09:19 Freq: Status: Active Protocol: Document 01/05/19 09:45 [facility] (Rec: 01/07/19 09:29 [facility] [email or web address]) Physical Therapy Assessment Rehab Potential Rehabilitation Potential Excellent Evaluation Complexity Number of Personal Factors/Comorbidities 0 Number of Body Systems Impaired 1-2 Clinical Presentation at Evaluation Stable Impairments Impairments Activity Tolerance,Functional Activities,Pain,Posture,ROM, Soft Tissue Mobility,Strength Goals Five Impairment Poor core stability s/p hysterectomy Scanning Manager Goal (LTG) Yudi demonstrates improvements in her core stability and is able to perform abdominal stabilization with LE marches and SLR without loss of support or pelvic movement LTG Duration 8 weeks Four Impairment Cervical spine pain 4/10 with forward head posture Short Term Goal (STG) Yudi is educated in upper cervical spine retraction exercises to help reduce forward head posture STG Duration 2-3 weeks Scanning Manager Goal (LTG) Yudi reports a overall reduction in cervical spine pain with a stabilization program and HEP Three Impairment Poor postural habits of thoracic kyphosis and increased lordosis Short Term Goal (STG) Yudi is educated in proper postural habits to improve mobility of the thoracic spine and improve stabilization of the lumbar spine STG Duration 4 weeks Two Impairment limited walking and standing duration to no more than 1.5 hours Scanning Manager Goal (LTG) Yudi is able to increase her walking and standing tolerance to walk through [facility] in April with her family LTG Duration 8 weeks One Impairment lumbar thoracic junction pain rated 6-7/10 Short Term Goal (STG) With manual therapy techniques , postural exercises and stretches Yudi is able to begin noting a reduction in pain by 2-3 points STG Duration 4 weeks Scanning Manager Goal (LTG) Yudi notes a overall reduction in pain in her thoracic and lumbar spine and pain levels have dropped to 1- 2/10 LTG Duration 8 weeks Assessment Summary Assessment Yudi presents to physical therapy today with symptoms of cervical, thoracic, and lumbar pain. Her pain is chronic but became worse following her pregnancies and hysterectomy. She has been seen previously for pelvic floor strengthening following her hysterectomy and she notes she is doing well with her pelvic floor and no longer c/o leakage. Her pain in her spine increases as the day goes on and she is very limited in her standing and walking duration. Her goal is to be able to take her family to [facility] in April and be able to sustain walking around the park for the days she is there. With examination today Yudi presents with poor postural habits of forard head and increased thoracic kyphosis. She has a visable hinge at her L4-5 joint and her left pelvis is elevated. She c/o rib pain on this left side that wraps around anteriorly. She is very guarded in her left quadratus lumborum and this may be contributing to her pain. She has decreased lumbar ROM in standing and decreased core strength. X- rays show minimal thoracolumbar junction spondylosis. Treatment will include postural education, strengthening exercises, stretches, and manual therapy to help decrease tissue tightness and improve posture and decrease load on the spine . Yudi is a good candidate for PT Physical Therapy Plan Frequency and Duration Frequency of Treatment 2x/Week Duration of Treatment 8 Plan of Care Start Date 01/05/19 Plan of Care End Date 03/02/19 Therapeutic Interventions Therapeutic Interventions Home Exercise Program,Joint Mobilizations,Manual Therapy, Neuromuscular Re-education, Patient/Caregiver Education, Self-Care/Home Management,Soft Tissue Mobilization, Therapeutic Activities, Therapeutic Exercises Modalities Cold Pack/Ice Massage,Electric Stimulation Next Visit Focus/Plan Next Note Type Treatment Note Next Visit Plan Begin with warm up and then a stretching program for the anterior chest and hips, postural strengthening exercises, manual therapy techniques to help reduce tissue tightness and compression on the spine
--- NOTE | 2019-01-07 09:41 | PT.OPPOC ---
Current Diagnoses Radiculopathy, cervical region (01/05/19) Dorsalgia, unspecified (01/05/19) Visit Care Team Role Provider Type TAMERA Evans Attending Provider Advanced Clamper Primary Care Provider Specialty: Family Practice Address: [address] [place] [address], [facility] [place], [address] Email: [email or web address] Plan Of Care PT-OP-T Assessment and Plan Start: 01/05/19 09:19 Freq: Status: Active Protocol: Document 01/05/19 09:45 [facility] (Rec: 01/07/19 09:29 [facility] [email or web address]) Physical Therapy Assessment Rehab Potential Rehabilitation Potential Excellent Evaluation Complexity Number of Personal Factors/Comorbidities 0 Number of Body Systems Impaired 1-2 Clinical Presentation at Evaluation Stable Impairments Impairments Activity Tolerance,Functional Activities,Pain,Posture,ROM, Soft Tissue Mobility,Strength Goals Five Impairment Poor core stability s/p hysterectomy Shower Maid Goal (LTG) Yudi demonstrates improvements in her core stability and is able to perform abdominal stabilization with LE marches and SLR without loss of support or pelvic movement LTG Duration 8 weeks Four Impairment Cervical spine pain 4/10 with forward head posture Short Term Goal (STG) Yudi is educated in upper cervical spine retraction exercises to help reduce forward head posture STG Duration 2-3 weeks [facility] Goal (LTG) Yudi reports a overall reduction in cervical spine pain with a stabilization program and HEP Three Impairment Poor postural habits of thoracic kyphosis and increased lordosis Short Term Goal (STG) Yudi is educated in proper postural habits to improve mobility of the thoracic spine and improve stabilization of the lumbar spine STG Duration 4 weeks Two Impairment limited walking and standing duration to no more than 1.5 hours Shower Maid Goal (LTG) Yudi is able to increase her walking and standing tolerance to walk through [facility] in April with her family LTG Duration 8 weeks One Impairment lumbar thoracic junction pain rated 6-7/10 Short Term Goal (STG) With manual therapy techniques , postural exercises and stretches Yudi is able to begin noting a reduction in pain by 2-3 points STG Duration 4 weeks Shower Maid Goal (LTG) Yudi notes a overall reduction in pain in her thoracic and lumbar spine and pain levels have dropped to 1- 2/10 LTG Duration 8 weeks Assessment Summary Assessment Yudi presents to physical therapy today with symptoms of cervical, thoracic, and lumbar pain. Her pain is chronic but became worse following her pregnancies and hysterectomy. She has been seen previously for pelvic floor strengthening following her hysterectomy and she notes she is doing well with her pelvic floor and no longer c/o leakage. Her pain in her spine increases as the day goes on and she is very limited in her standing and walking duration. Her goal is to be able to take her family to [facility] in April and be able to sustain walking around the park for the days she is there. With examination today Yudi presents with poor postural habits of forward head and increased thoracic kyphosis. She has a visable hinge at her L4-5 joint and her left pelvis is elevated. She c/o rib pain on this left side that wraps around anteriorly. She is very guarded in her left quadratus lumborum and this may be contributing to her pain. She has decreased lumbar ROM in standing and decreased core strength. X- rays show minimal thoracolumbar junction spondylosis. Treatment will include postural education, strengthening exercises, stretches, and manual therapy to help decrease tissue tightness and improve posture and decrease load on the spine . Yudi is a good candidate for PT Physical Therapy Plan Frequency and Duration Frequency of Treatment 2x/Week Duration of Treatment 8 Plan of Care Start Date 01/05/19 Plan of Care End Date 03/02/19 Therapeutic Interventions Therapeutic Interventions Home Exercise Program,Joint Mobilizations,Manual Therapy, Neuromuscular Re-education, Patient/Caregiver Education, Self-Care/Home Management,Soft Tissue Mobilization, Therapeutic Activities, Therapeutic Exercises Modalities Cold Pack/Ice Massage,Electric Stimulation Next Visit Focus/Plan Next Note Type Treatment Note Next Visit Plan Begin with warm up and then a stretching program for the anterior chest and hips, postural strengthening exercises, manual therapy techniques to help reduce tissue tightness and compression on the spine Plan of Care Dates Plan of Care Start Date 01/05/19 Plan of Care End Date 03/02/19
--- NOTE | 2019-01-07 17:40 | PT.OTN ---
Current Diagnoses Radiculopathy, cervical region (01/07/19) Dorsalgia, unspecified (01/07/19) Physical Therapy Treatment Note PT-OP-A Visit Information Start: 01/05/19 09:19 Freq: Status: Active Protocol: Document 01/07/19 13:00 [facility] (Rec: 01/10/19 17:40 [facility] [email or web address]) Out-Patient Physical Therapy Visit Information Visit Information Visit Type Treatment Note Visit Start Time 13:00 Visit Stop Time 13:45 Total Visit Minutes 45 Visit Number 2 PT-OP-B Current Condition Start: 01/05/19 09:19 Freq: Status: Active Protocol: Document 01/05/19 09:45 [facility] (Rec: 01/06/19 09:42 [facility] [email or web address]) Current Condition History of Current Condition Onset Date 1 year ago Current Complaints c/o cervical, thoracic, lumbar pain History of Current Condition 28 year old female 2 para 2 with chronic back and neck pain. 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 She was seen for pelvic floor PT following her hysterectomy. She has recent X-rays taken that reveal minimal mild throacic spondylosis, loss of cervical lordosis and minimal thoraco lumbar junction spondylosis. Yudi reports her pain worsens as the day goes on. The majority of her pain is located in the thoraco lumbar region with pain rated 6-7/10. She also reports left rib cage paint hat seems to wrap around from the back. Her neck pain is rated 4/10. Other past medical history includes Cholecystectomy, jaw pain, dizziness, headaches Treatment Goals Patient/Caregiver Goals The patients goals include being able to walk around [facility] without as much pain with her family in April of 2019. Prior Functional Status Baseline Function- ADL's Independent Baseline Function- Mobility Independent Current Functional Impairments (Reported) Functional Limitations- ADL's pain with ADL's that require bending or lifting, sleep is disturbed, pt is limited to being on her feet for no more than a hour and a half at a time due to pain. 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 PT-OP-F Manual Assessment Start: 01/05/19 09:19 Freq: Status: Active Protocol: Document 01/05/19 09:45 [facility] (Rec: 01/06/19 11:21 [facility] [email or web address]) Manual Assessments Soft Tissue Assessment Soft Tissue Mobility Assessment very tight and guarded thoracic and lumbar paraspinals, fascial restrictions in the left quadratus lumborum and throacolumbar fascia, restrictions in the left greater than right iliopsoas Joint Mobility Assessment Joint Mobility Assessment increased lumbar lorosis with hinge seen at the L4-L5 vertebrae, throacic spine is rotated right, increased kyphosis in the thoracic spine , hypomobility of thoracic extension PT-OP-J Posture/Palpation/Skin Start: 01/05/19 09:19 Freq: Status: Active Protocol: Document 01/05/19 09:45 [facility] (Rec: 01/06/19 11:21 [facility] [email or web address]) Posture Evaluation Position Standing Evaluation View Lateral Head/C-Spine Posture Flexed,C-Spine Flattened T-Spine Posture Rotation Right,Increased Kyphosis Thorax Posture (R) Prominent L-Spine Posture Increased Lordosis Shoulder Posture (L) Forward,(R) Forward Comments Posture Comments pt has visable left sided muscle guarding raising the left pelvis, there is a visable hinge in the L4-5 junction and throacic spine is rotated right, forward head and thoracic posture. PT-OP-K Range of Motion Start: 01/05/19 09:19 Freq: Status: Active Protocol: Document 01/05/19 09:45 [facility] (Rec: 01/07/19 09:12 [facility] [email or web address]) Lumbar Spine Range of Motion Lumbar Spine Active Testing Position Standing Flexion 60 Extension 10 Rotation Left 30 Rotation Right 30 Lateral Flexion Left 10 Lateral Flexion Right 10 ROM Limitations Soft Tissue Tightness,Muscle Tone,Pain Comments hinges at L4-5 and extension increases pain PT-OP-M Strength Start: 01/05/19 09:19 Freq: Status: Active Protocol: Document 01/05/19 09:45 [facility] (Rec: 01/07/19 09:29 [facility] [email or web address]) Trunk Strength Trunk Manual Muscle Testing Testing Position Supine Core Stabilization poor transverse abdominal activation and Yudi notes she is still numb from her C- section scar PT-OP-Q Treatments Start: 01/05/19 09:19 Freq: Status: Active Protocol: Document 01/07/19 13:00 [facility] (Rec: 01/10/19 17:40 [facility] [email or web address]) Therapeutic Exercises Supine Exercises 5 Supine Exercise Name foam roll stretch Comments 1/2 foam roll 2 Supine Exercise Name modified squat stretch Side bilateral Reps/Minutes hold 1-2 minutes 1 Supine Exercise Name iliopsoas stretch Reps/Minutes 2 x 1 min hold Comments tyrell test position Prone Exercises 2 Prone Exercise Name prone thoracic extensions 1 Prone Exercise Name cobra stretch Sidelying Exercises 1 Sidelying Exercise Name sidelying clam shell Reps/Minutes 2 x 10 Sitting Exercises 1 Sitting Exercise Name seated sidebending stretch Side bilateral Reps/Minutes x 5 reps each Other Exercises 6 Other Exercise Name iliopsoas stretch in tyrell test position 4 Other Exercise Name alee pose 2 Other Exercise Name quadruped cat cow and sidebends Reps/Minutes x 10 1 Other Exercise Name cervcial retraction Reps/Minutes x 5 Manual Therapy Treatment Soft Tissue Mobilization 2 Body Location STM over the thoracic spine region Mobilization Type Myofascial Release 1 Body Location left sidelying QL release Mobilization Type Myofascial Release Joint Mobilizations 1 Joint Thoracic spine PA glides grade II Direction PA Grade II Body Position Prone Comments T 2-T 8 PT-OP-T Assessment and Plan Start: 01/05/19 09:19 Freq: Status: Active Protocol: Document 01/07/19 13:00 [facility] (Rec: 01/10/19 17:40 [facility] [email or web address]) Physical Therapy Assessment Assessment Summary Assessment Very tender at first with any joint mobilizations, may benefit from trial of kinesiotape for postural correction next visit. Increase abdominal exercise next visit Physical Therapy Plan Next Visit Focus/Plan Next Visit Plan Begin with warm up and then a stretching program for the anterior chest and hips, postural strengthening exercises, manual therapy techniques to help reduce tissue tightness and compression on the spine
--- NOTE | 2019-01-12 17:53 | PT.OTN ---
Current Diagnoses Radiculopathy, cervical region (01/12/19) Dorsalgia, unspecified (01/12/19) Physical Therapy Treatment Note PT-OP-A Visit Information Start: 01/05/19 09:19 Freq: Status: Active Protocol: Document 01/12/19 17:45 [facility] (Rec: 01/12/19 17:53 [facility] [email or web address]) Out-Patient Physical Therapy Visit Information Visit Information Visit Type Treatment Note Visit Start Time 10:40 Visit Stop Time 11:25 Total Visit Minutes 45 Visit Number 3 PT-OP-B Current Condition Start: 01/05/19 09:19 Freq: Status: Active Protocol: Document 01/05/19 09:45 [facility] (Rec: 01/06/19 09:42 [facility] [email or web address]) Current Condition History of Current Condition Onset Date 1 year ago Current Complaints c/o cervical, thoracic, lumbar pain History of Current Condition 28 year old female 2 para 2 with chronic back and neck pain. 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 She was seen for pelvic floor PT following her hysterectomy. She has recent X-rays taken that reveal minimal mild throacic spondylosis, loss of cervical lordosis and minimal thoraco lumbar junction spondylosis. Yudi reports her pain worsens as the day goes on. The majority of her pain is located in the thoraco lumbar region with pain rated 6-7/10. She also reports left rib cage paint hat seems to wrap around from the back. Her neck pain is rated 4/10. Other past medical history includes Cholecystectomy, jaw pain, dizziness, headaches Treatment Goals Patient/Caregiver Goals The patients goals include being able to walk around [facility] without as much pain with her family in April of 2019. Prior Functional Status Baseline Function- ADL's Independent Baseline Function- Mobility Independent Current Functional Impairments (Reported) Functional Limitations- ADL's pain with ADL's that require bending or lifting, sleep is disturbed, pt is limited to being on her feet for no more than a hour and a half at a time due to pain. PT-OP-C Subjective Start: 01/05/19 09:19 Freq: Status: Active Protocol: Document 01/12/19 17:45 [facility] (Rec: 01/12/19 17:53 [facility] [email or web address]) OP-PT Subjective Patient Comments Patient Comments pt reports she has been working on her stretches, really still feels the left sided rib cage tightness and pain PT-OP-F Manual Assessment Start: 01/05/19 09:19 Freq: Status: Active Protocol: Document 01/05/19 09:45 [facility] (Rec: 01/06/19 11:21 [facility] [email or web address]) Manual Assessments Soft Tissue Assessment Soft Tissue Mobility Assessment very tight and guarded thoracic and lumbar paraspinals, fascial restrictions in the left quadratus lumborum and throacolumbar fascia, restrictions in the left greater than right iliopsoas Joint Mobility Assessment Joint Mobility Assessment increased lumbar lorosis with hinge seen at the L4-L5 vertebrae, throacic spine is rotated right, increased kyphosis in the thoracic spine , hypomobility of thoracic extension PT-OP-J Posture/Palpation/Skin Start: 01/05/19 09:19 Freq: Status: Active Protocol: Document 01/05/19 09:45 [facility] (Rec: 01/06/19 11:21 [facility] [email or web address]) Posture Evaluation Position Standing Evaluation View Lateral Head/C-Spine Posture Flexed,C-Spine Flattened T-Spine Posture Rotation Right,Increased Kyphosis Thorax Posture (R) Prominent L-Spine Posture Increased Lordosis Shoulder Posture (L) Forward,(R) Forward Comments Posture Comments pt has visable left sided muscle guarding raising the left pelvis, there is a visable hinge in the L4-5 junction and throacic spine is rotated right, forward head and thoracic posture. PT-OP-K Range of Motion Start: 01/05/19 09:19 Freq: Status: Active Protocol: Document 01/05/19 09:45 [facility] (Rec: 01/07/19 09:12 [facility] [email or web address]) Lumbar Spine Range of Motion Lumbar Spine Active Testing Position Standing Flexion 60 Extension 10 Rotation Left 30 Rotation Right 30 Lateral Flexion Left 10 Lateral Flexion Right 10 ROM Limitations Soft Tissue Tightness,Muscle Tone,Pain Comments hinges at L4-5 and extension increases pain PT-OP-M Strength Start: 01/05/19 09:19 Freq: Status: Active Protocol: Document 01/05/19 09:45 [facility] (Rec: 01/07/19 09:29 [facility] [email or web address]) Trunk Strength Trunk Manual Muscle Testing Testing Position Supine Core Stabilization poor transverse abdominal activation and Yudi notes she is still numb from her C- section scar PT-OP-Q Treatments Start: 01/05/19 09:19 Freq: Status: Active Protocol: Document 01/12/19 17:45 [facility] (Rec: 01/12/19 17:53 [facility] [email or web address]) Gym Equipment Cable Column (Body Solid) Rows Details 20# Reps/Time x 10 reps Lat Pull Down Details 20 # Reps/Time x 10 Therapeutic Exercises Standing Exercises 1 Standing Exercise Name standing serratus anterior wall press Other Exercises 7 Other Exercise Name supine over the ball stretch Manual Therapy Treatment Soft Tissue Mobilization 3 Body Location scar tissue release over the gall bladder scar on the abdominal wall Comments the scar is actually more on the left side of the rib cage 2 Body Location STM over the thoracic spine region Mobilization Type Myofascial Release 1 Body Location left sidelying QL release Mobilization Type Myofascial Release Joint Mobilizations 2 Joint sidelying scapular mobilizations 1 Joint Thoracic spine PA glides grade II Direction PA Grade II Body Position Prone Comments T 2-T 8 PT-OP-T Assessment and Plan Start: 01/05/19 09:19 Freq: Status: Active Protocol: Document 01/12/19 17:45 [facility] (Rec: 01/12/19 17:53 [facility] [email or web address]) Physical Therapy Assessment Assessment Summary Assessment scar tissue present from the gall bladder scar that does reporduce the rib cage pain stone worked on, also began serratus anterior presses today and supine over ball rib cage stretch Physical Therapy Plan Next Visit Focus/Plan Next Note Type Treatment Note Next Visit Plan begin with foam roll stretch next visit, continue to work on scapular mobilizations and rib cage mobilizations, MFR over the abdominal fascia
--- NOTE | 2019-01-14 11:10 | PT.OTN ---
Current Diagnoses Radiculopathy, cervical region (01/14/19) Dorsalgia, unspecified (01/14/19) Physical Therapy Treatment Note PT-OP-A Visit Information Start: 01/05/19 09:19 Freq: Status: Active Protocol: Document 01/14/19 10:34 [facility] (Rec: 01/14/19 11:10 MB [id number]) Out-Patient Physical Therapy Visit Information Visit Information Visit Type Treatment Note Visit Note Shortened treatment to monitor how pt responds to new manual technique and pelvic realignment exercises. She feels better after treatment. Visit Start Time 10:34 Visit Stop Time 11:05 Total Visit Minutes 31 Visit Number 4 PT-OP-B Current Condition Start: 01/05/19 09:19 Freq: Status: Active Protocol: Document 01/05/19 09:45 [facility] (Rec: 01/06/19 09:42 [facility] [email or web address]) Current Condition History of Current Condition Onset Date 1 year ago Current Complaints c/o cervical, thoracic, lumbar pain History of Current Condition 28 year old female 2 para 2 with chronic back and neck pain. 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 She was seen for pelvic floor PT following her hysterectomy. She has recent X-rays taken that reveal minimal mild throacic spondylosis, loss of cervical lordosis and minimal thoraco lumbar junction spondylosis. Yudi reports her pain worsens as the day goes on. The majority of her pain is located in the thoraco lumbar region with pain rated 6-7/10. She also reports left rib cage paint hat seems to wrap around from the back. Her neck pain is rated 4/10. Other past medical history includes Cholecystectomy, jaw pain, dizziness, headaches Treatment Goals Patient/Caregiver Goals The patients goals include being able to walk around [facility] without as much pain with her family in April of 2019. Prior Functional Status Baseline Function- ADL's Independent Baseline Function- Mobility Independent Current Functional Impairments (Reported) Functional Limitations- ADL's pain with ADL's that require bending or lifting, sleep is disturbed, pt is limited to being on her feet for no more than a hour and a half at a time due to pain. PT-OP-C Subjective Start: 01/05/19 09:19 Freq: Status: Active Protocol: Document 01/14/19 10:34 MB (Rec: 01/14/19 11:10 MB [id number]) OP-PT Subjective Patient Comments Patient Comments Pt reports she got on the ellipitical this morning and she had a little soreness yesterday after having been worked on by PT. PT-OP-F Manual Assessment Start: 01/05/19 09:19 Freq: Status: Active Protocol: Document 01/05/19 09:45 [facility] (Rec: 01/06/19 11:21 [facility] [email or web address]) Manual Assessments Soft Tissue Assessment Soft Tissue Mobility Assessment very tight and guarded thoracic and lumbar paraspinals, fascial restrictions in the left quadratus lumborum and throacolumbar fascia, restrictions in the left greater than right iliopsoas Joint Mobility Assessment Joint Mobility Assessment increased lumbar lorosis with hinge seen at the L4-L5 vertebrae, throacic spine is rotated right, increased kyphosis in the thoracic spine , hypomobility of thoracic extension PT-OP-J Posture/Palpation/Skin Start: 01/05/19 09:19 Freq: Status: Active Protocol: Document 01/05/19 09:45 [facility] (Rec: 01/06/19 11:21 [facility] [email or web address]) Posture Evaluation Position Standing Evaluation View Lateral Head/C-Spine Posture Flexed,C-Spine Flattened T-Spine Posture Rotation Right,Increased Kyphosis Thorax Posture (R) Prominent L-Spine Posture Increased Lordosis Shoulder Posture (L) Forward,(R) Forward Comments Posture Comments pt has visable left sided muscle guarding raising the left pelvis, there is a visable hinge in the L4-5 junction and throacic spine is rotated right, forward head and thoracic posture. PT-OP-K Range of Motion Start: 01/05/19 09:19 Freq: Status: Active Protocol: Document 01/05/19 09:45 [facility] (Rec: 01/07/19 09:12 [facility] [email or web address]) Lumbar Spine Range of Motion Lumbar Spine Active Testing Position Standing Flexion 60 Extension 10 Rotation Left 30 Rotation Right 30 Lateral Flexion Left 10 Lateral Flexion Right 10 ROM Limitations Soft Tissue Tightness,Muscle Tone,Pain Comments hinges at L4-5 and extension increases pain PT-OP-M Strength Start: 01/05/19 09:19 Freq: Status: Active Protocol: Document 01/05/19 09:45 [facility] (Rec: 01/07/19 09:29 [facility] [email or web address]) Trunk Strength Trunk Manual Muscle Testing Testing Position Supine Core Stabilization poor transverse abdominal activation and Yudi notes she is still numb from her C- section scar PT-OP-Q Treatments Start: 01/05/19 09:19 Freq: Status: Active Protocol: Document 01/14/19 10:34 MB (Rec: 01/14/19 11:10 MB [id number]) Therapeutic Exercises Supine Exercises Pelvic realignment exericses Comments Pelvic realignment exercises, added to HEP Manual Therapy Treatment Soft Tissue Mobilization 1 Body Location B sidelying QL release, rib recoil for QL and lat (lat on left) Mobilization Type Other PT-OP-T Assessment and Plan Start: 01/05/19 09:19 Freq: Status: Active Protocol: Document 01/14/19 10:34 MB (Rec: 01/14/19 11:10 MB [id number]) Physical Therapy Assessment Assessment Summary Assessment Initiated pelvic realignment exercises this date to help thoracic mobility with QL attachment. Monitor response. Physical Therapy Plan Next Visit Focus/Plan Next Note Type Treatment Note Next Visit Plan begin with foam roll stretch next visit, continue to work on scapular mobilizations and rib cage mobilizations, MFR over the abdominal fascia
--- NOTE | 2019-01-19 18:56 | PT.OTN ---
Current Diagnoses Radiculopathy, cervical region (01/19/19) Dorsalgia, unspecified (01/19/19) Physical Therapy Treatment Note PT-OP-A Visit Information Start: 01/05/19 09:19 Freq: Status: Active Protocol: Document 01/19/19 18:52 [facility] (Rec: 01/19/19 18:56 [facility] [id number]) Out-Patient Physical Therapy Visit Information Visit Information Visit Type Treatment Note Visit Note pt reports she is starting to feel a little looser in her rib cage Visit Start Time 09:45 Visit Stop Time 10:30 Total Visit Minutes 45 Visit Number 5 PT-OP-B Current Condition Start: 01/05/19 09:19 Freq: Status: Active Protocol: Document 01/05/19 09:45 [facility] (Rec: 01/06/19 09:42 [facility] [id number]) Current Condition History of Current Condition Onset Date 1 year ago Current Complaints c/o cervical, thoracic, lumbar pain History of Current Condition 28 year old female 2 para 2 with chronic back and neck pain. 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 She was seen for pelvic floor PT following her hysterectomy. She has recent X-rays taken that reveal minimal mild throacic spondylosis, loss of cervical lordosis and minimal thoraco lumbar junction spondylosis. Yudi reports her pain worsens as the day goes on. The majority of her pain is located in the thoraco lumbar region with pain rated 6-7/10. She also reports left rib cage paint hat seems to wrap around from the back. Her neck pain is rated 4/10. Other past medical history includes Cholecystectomy, jaw pain, dizziness, headaches Treatment Goals Patient/Caregiver Goals The patients goals include being able to walk around [facility] without as much pain with her family in April of 2019. Prior Functional Status Baseline Function- ADL's Independent Baseline Function- Mobility Independent Current Functional Impairments (Reported) Functional Limitations- ADL's pain with ADL's that require bending or lifting, sleep is disturbed, pt is limited to being on her feet for no more than a hour and a half at a time due to pain. PT-OP-C Subjective Start: 01/05/19 09:19 Freq: Status: Active Protocol: Document 01/19/19 18:52 [facility] (Rec: 01/19/19 18:56 [facility] [id number]) OP-PT Subjective Patient Comments Patient Comments pt reports she is starting to feel a little looser in her rib cage PT-OP-F Manual Assessment Start: 01/05/19 09:19 Freq: Status: Active Protocol: Document 01/05/19 09:45 [facility] (Rec: 01/06/19 11:21 [facility] [id number]) Manual Assessments Soft Tissue Assessment Soft Tissue Mobility Assessment very tight and guarded thoracic and lumbar paraspinals, fascial restrictions in the left quadratus lumborum and throacolumbar fascia, restrictions in the left greater than right iliopsoas Joint Mobility Assessment Joint Mobility Assessment increased lumbar lorosis with hinge seen at the L4-L5 vertebrae, throacic spine is rotated right, increased kyphosis in the thoracic spine , hypomobility of thoracic extension PT-OP-J Posture/Palpation/Skin Start: 01/05/19 09:19 Freq: Status: Active Protocol: Document 01/05/19 09:45 [facility] (Rec: 01/06/19 11:21 [facility] [id number]) Posture Evaluation Position Standing Evaluation View Lateral Head/C-Spine Posture Flexed,C-Spine Flattened T-Spine Posture Rotation Right,Increased Kyphosis Thorax Posture (R) Prominent L-Spine Posture Increased Lordosis Shoulder Posture (L) Forward,(R) Forward Comments Posture Comments pt has visable left sided muscle guarding raising the left pelvis, there is a visable hinge in the L4-5 junction and throacic spine is rotated right, forward head and thoracic posture. PT-OP-K Range of Motion Start: 01/05/19 09:19 Freq: Status: Active Protocol: Document 01/05/19 09:45 [facility] (Rec: 01/07/19 09:12 [facility] [email or web address]) Lumbar Spine Range of Motion Lumbar Spine Active Testing Position Standing Flexion 60 Extension 10 Rotation Left 30 Rotation Right 30 Lateral Flexion Left 10 Lateral Flexion Right 10 ROM Limitations Soft Tissue Tightness,Muscle Tone,Pain Comments hinges at L4-5 and extension increases pain PT-OP-M Strength Start: 01/05/19 09:19 Freq: Status: Active Protocol: Document 01/05/19 09:45 [facility] (Rec: 01/07/19 09:29 [facility] [email or web address]) Trunk Strength Trunk Manual Muscle Testing Testing Position Supine Core Stabilization poor transverse abdominal activation and Yudi notes she is still numb from her C- section scar PT-OP-Q Treatments Start: 01/05/19 09:19 Freq: Status: Active Protocol: Document 01/19/19 18:52 [facility] (Rec: 01/19/19 18:56 [facility] [id number]) Gym Equipment Cable Column (Body Solid) Rows Details 20# Reps/Time x 10 reps Lat Pull Down Details 20 # Reps/Time x 10 Therapeutic Exercises Other Exercises 6 Other Exercise Name iliopsoas stretch in tyrell test position 5 Other Exercise Name iliopspoas half kneeling stretch 4 Other Exercise Name alee pose 3 Other Exercise Name foam roll stretch 2 Other Exercise Name quadruped cat cow and sidebends Reps/Minutes x 10 1 Other Exercise Name cervcial retraction Reps/Minutes x 5 Manual Therapy Treatment Soft Tissue Mobilization 3 Body Location scar tissue release over the gall bladder scar on the abdominal wall Comments the scar is actually more on the left side of the rib cage 1 Body Location B sidelying QL release, rib recoil for QL and lat (lat on left) Mobilization Type Other Joint Mobilizations 2 Joint sidelying scapular mobilizations 1 Joint Thoracic spine PA glides grade II Direction PA Grade II Body Position Prone Comments T 2-T 8 PT-OP-T Assessment and Plan Start: 01/05/19 09:19 Freq: Status: Active Protocol: Document 01/19/19 18:52 [facility] (Rec: 01/19/19 18:56 [facility] [id number]) Physical Therapy Assessment Assessment Summary Assessment improving trunk mobility today , still very tight in the abdominal fascia so continue to work on this, added in half kneeling iliopsoas stretchign , pt tolerating treatment well . Physical Therapy Plan Next Visit Focus/Plan Next Note Type Treatment Note Next Visit Plan begin with foam roll stretch next visit, continue to work on scapular mobilizations and rib cage mobilizations, MFR over the abdominal fascia
--- NOTE | 2019-01-21 13:23 | PT.OTN ---
Current Diagnoses Radiculopathy, cervical region (01/21/19) Dorsalgia, unspecified (01/21/19) Physical Therapy Treatment Note PT-OP-A Visit Information Start: 01/05/19 09:19 Freq: Status: Active Protocol: Document 01/21/19 13:16 [facility] (Rec: 01/21/19 13:23 [facility] [email or web address]) Out-Patient Physical Therapy Visit Information Visit Information Visit Type Treatment Note Visit Start Time 10:30 Visit Stop Time 11:15 Total Visit Minutes 45 Visit Number 6 PT-OP-B Current Condition Start: 01/05/19 09:19 Freq: Status: Active Protocol: Document 01/05/19 09:45 [facility] (Rec: 01/06/19 09:42 [facility] [email or web address]) Current Condition History of Current Condition Onset Date 1 year ago Current Complaints c/o cervical, thoracic, lumbar pain History of Current Condition 28 year old female 2 para 2 with chronic back and neck pain. 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 She was seen for pelvic floor PT following her hysterectomy. She has recent X-rays taken that reveal minimal mild throacic spondylosis, loss of cervical lordosis and minimal thoraco lumbar junction spondylosis. Yudi reports her pain worsens as the day goes on. The majority of her pain is located in the thoraco lumbar region with pain rated 6-7/10. She also reports left rib cage paint hat seems to wrap around from the back. Her neck pain is rated 4/10. Other past medical history includes Cholecystectomy, jaw pain, dizziness, headaches Treatment Goals Patient/Caregiver Goals The patients goals include being able to walk around [facility] without as much pain with her family in April of 2019. Prior Functional Status Baseline Function- ADL's Independent Baseline Function- Mobility Independent Current Functional Impairments (Reported) Functional Limitations- ADL's pain with ADL's that require bending or lifting, sleep is disturbed, pt is limited to being on her feet for no more than a hour and a half at a time due to pain. PT-OP-C Subjective Start: 01/05/19 09:19 Freq: Status: Active Protocol: Document 01/21/19 13:16 [facility] (Rec: 01/21/19 13:23 [facility] [email or web address]) OP-PT Subjective Patient Comments Patient Comments pt reports she is not as sore this week as she was last week . She has the beginning of a sinus infection though so she hasn't been at the gym PT-OP-F Manual Assessment Start: 01/05/19 09:19 Freq: Status: Active Protocol: Document 01/05/19 09:45 [facility] (Rec: 01/06/19 11:21 [facility] [email or web address]) Manual Assessments Soft Tissue Assessment Soft Tissue Mobility Assessment very tight and guarded thoracic and lumbar paraspinals, fascial restrictions in the left quadratus lumborum and throacolumbar fascia, restrictions in the left greater than right iliopsoas Joint Mobility Assessment Joint Mobility Assessment increased lumbar lorosis with hinge seen at the L4-L5 vertebrae, throacic spine is rotated right, increased kyphosis in the thoracic spine , hypomobility of thoracic extension PT-OP-J Posture/Palpation/Skin Start: 01/05/19 09:19 Freq: Status: Active Protocol: Document 01/05/19 09:45 [facility] (Rec: 01/06/19 11:21 [facility] [email or web address]) Posture Evaluation Position Standing Evaluation View Lateral Head/C-Spine Posture Flexed,C-Spine Flattened T-Spine Posture Rotation Right,Increased Kyphosis Thorax Posture (R) Prominent L-Spine Posture Increased Lordosis Shoulder Posture (L) Forward,(R) Forward Comments Posture Comments pt has visable left sided muscle guarding raising the left pelvis, there is a visable hinge in the L4-5 junction and throacic spine is rotated right, forward head and thoracic posture. PT-OP-K Range of Motion Start: 01/05/19 09:19 Freq: Status: Active Protocol: Document 01/05/19 09:45 [facility] (Rec: 01/07/19 09:12 [facility] [email or web address]) Lumbar Spine Range of Motion Lumbar Spine Active Testing Position Standing Flexion 60 Extension 10 Rotation Left 30 Rotation Right 30 Lateral Flexion Left 10 Lateral Flexion Right 10 ROM Limitations Soft Tissue Tightness,Muscle Tone,Pain Comments hinges at L4-5 and extension increases pain PT-OP-M Strength Start: 01/05/19 09:19 Freq: Status: Active Protocol: Document 01/05/19 09:45 [facility] (Rec: 01/07/19 09:29 [facility] [email or web address]) Trunk Strength Trunk Manual Muscle Testing Testing Position Supine Core Stabilization poor transverse abdominal activation and Yudi notes she is still numb from her C- section scar PT-OP-Q Treatments Start: 01/05/19 09:19 Freq: Status: Active Protocol: Document 01/21/19 13:16 [facility] (Rec: 01/21/19 13:23 [facility] [email or web address]) Gym Equipment Cable Column (Body Solid) Rows Details 20# Reps/Time x 10 reps Lat Pull Down Details 20 # Reps/Time x 10 Therapeutic Exercises Prone Exercises 2 Prone Exercise Name prone thoracic extensions 1 Prone Exercise Name cobra stretch Standing Exercises 1 Standing Exercise Name standing serratus anterior wall press Other Exercises 7 Other Exercise Name quadraped thoracic extension with elbows on a 6 step 5 Other Exercise Name iliopspoas half kneeling stretch 4 Other Exercise Name alee pose 3 Other Exercise Name foam roll stretch Comments with active shoulder ROM 2 Other Exercise Name quadruped cat cow and sidebends Reps/Minutes x 10 Manual Therapy Treatment Soft Tissue Mobilization 2 Body Location STM over the thoracic spine region Mobilization Type Myofascial Release Joint Mobilizations 1 Joint Thoracic spine PA glides grade II Direction PA Grade II Body Position Prone Comments T 2-T 8 PT-OP-T Assessment and Plan Start: 01/05/19 09:19 Freq: Status: Active Protocol: Document 01/21/19 13:16 [facility] (Rec: 01/21/19 13:23 [facility] [email or web address]) Physical Therapy Assessment Assessment Summary Assessment Yudi felt a good amount of thoracic extension with quadruped mobilizations with elbows on a step today. Physical Therapy Plan Frequency and Duration Frequency of Treatment 2x/Week Duration of Treatment 8 Plan of Care Start Date 01/05/19 Plan of Care End Date 03/02/19 Next Visit Focus/Plan Next Note Type Treatment Note Next Visit Plan continue progressing thoracic mobility and rib cage mobility , postural exercises and core stabilization
--- NOTE | 2019-01-26 18:09 | PT.OTN ---
Current Diagnoses Radiculopathy, cervical region (01/26/19) Dorsalgia, unspecified (01/26/19) Physical Therapy Treatment Note PT-OP-A Visit Information Start: 01/05/19 09:19 Freq: Status: Active Protocol: Document 01/26/19 17:53 [facility] (Rec: 01/26/19 18:09 [facility] [email or web address]) Out-Patient Physical Therapy Visit Information Visit Information Visit Type Treatment Note Visit Start Time 10:30 Visit Stop Time 11:15 Total Visit Minutes 45 Visit Number 7 PT-OP-B Current Condition Start: 01/05/19 09:19 Freq: Status: Active Protocol: Document 01/05/19 09:45 [facility] (Rec: 01/06/19 09:42 [facility] [email or web address]) Current Condition History of Current Condition Onset Date 1 year ago Current Complaints c/o cervical, thoracic, lumbar pain History of Current Condition 28 year old female 2 para 2 with chronic back and neck pain. 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 She was seen for pelvic floor PT following her hysterectomy. She has recent X-rays taken that reveal minimal mild throacic spondylosis, loss of cervical lordosis and minimal thoraco lumbar junction spondylosis. Yudi reports her pain worsens as the day goes on. The majority of her pain is located in the thoraco lumbar region with pain rated 6-7/10. She also reports left rib cage paint hat seems to wrap around from the back. Her neck pain is rated 4/10. Other past medical history includes Cholecystectomy, jaw pain, dizziness, headaches Treatment Goals Patient/Caregiver Goals The patients goals include being able to walk around [facility] without as much pain with her family in April of 2019. Prior Functional Status Baseline Function- ADL's Independent Baseline Function- Mobility Independent Current Functional Impairments (Reported) Functional Limitations- ADL's pain with ADL's that require bending or lifting, sleep is disturbed, pt is limited to being on her feet for no more than a hour and a half at a time due to pain. PT-OP-C Subjective Start: 01/05/19 09:19 Freq: Status: Active Protocol: Document 01/26/19 17:53 [facility] (Rec: 01/26/19 18:09 [facility] [email or web address]) OP-PT Subjective Patient Comments Patient Comments pt report she is feeling not as sore in her rib cage as she was and looser PT-OP-F Manual Assessment Start: 01/05/19 09:19 Freq: Status: Active Protocol: Document 01/05/19 09:45 [facility] (Rec: 01/06/19 11:21 [facility] [id number]) Manual Assessments Soft Tissue Assessment Soft Tissue Mobility Assessment very tight and guarded thoracic and lumbar paraspinals, fascial restrictions in the left quadratus lumborum and throacolumbar fascia, restrictions in the left greater than right iliopsoas Joint Mobility Assessment Joint Mobility Assessment increased lumbar lorosis with hinge seen at the L4-L5 vertebrae, throacic spine is rotated right, increased kyphosis in the thoracic spine , hypomobility of thoracic extension PT-OP-J Posture/Palpation/Skin Start: 01/05/19 09:19 Freq: Status: Active Protocol: Document 01/05/19 09:45 [facility] (Rec: 01/06/19 11:21 [facility] [id number]) Posture Evaluation Position Standing Evaluation View Lateral Head/C-Spine Posture Flexed,C-Spine Flattened T-Spine Posture Rotation Right,Increased Kyphosis Thorax Posture (R) Prominent L-Spine Posture Increased Lordosis Shoulder Posture (L) Forward,(R) Forward Comments Posture Comments pt has visable left sided muscle guarding raising the left pelvis, there is a visable hinge in the L4-5 junction and throacic spine is rotated right, forward head and thoracic posture. PT-OP-K Range of Motion Start: 01/05/19 09:19 Freq: Status: Active Protocol: Document 01/05/19 09:45 [facility] (Rec: 01/07/19 09:12 [facility] [id number]) Lumbar Spine Range of Motion Lumbar Spine Active Testing Position Standing Flexion 60 Extension 10 Rotation Left 30 Rotation Right 30 Lateral Flexion Left 10 Lateral Flexion Right 10 ROM Limitations Soft Tissue Tightness,Muscle Tone,Pain Comments hinges at L4-5 and extension increases pain PT-OP-M Strength Start: 01/05/19 09:19 Freq: Status: Active Protocol: Document 01/05/19 09:45 [facility] (Rec: 01/07/19 09:29 [facility] [id number]) Trunk Strength Trunk Manual Muscle Testing Testing Position Supine Core Stabilization poor transverse abdominal activation and Yudi notes she is still numb from her C- section scar PT-OP-Q Treatments Start: 01/05/19 09:19 Freq: Status: Active Protocol: Document 01/26/19 17:53 [facility] (Rec: 01/26/19 18:09 [facility] [email or web address]) Gym Equipment Cable Column (Body Solid) Rows Details 20# Reps/Time x 10 reps Lat Pull Down Details 20 # Reps/Time x 10 Therapeutic Exercises Supine Exercises 10 Supine Exercise Name foam roll stretch Comments with serratus anterior punches 2 Supine Exercise Name modified squat stretch Side bilateral Reps/Minutes hold 1-2 minutes 1 Supine Exercise Name iliopsoas stretch Reps/Minutes 2 x 1 min hold Comments tyrell test position Prone Exercises 2 Prone Exercise Name prone thoracic extensions Other Exercises 7 Other Exercise Name quadraped thoracic extension with elbows on a 6 step 5 Other Exercise Name iliopspoas half kneeling stretch 4 Other Exercise Name alee pose 3 Other Exercise Name foam roll stretch Comments with active shoulder ROM 2 Other Exercise Name quadruped cat cow and sidebends Reps/Minutes x 10 Manual Therapy Treatment Soft Tissue Mobilization 4 Body Location first rib manual mobilizations and manual scalene stretching on the left 2 Body Location STM over the thoracic spine region Mobilization Type Myofascial Release PT-OP-T Assessment and Plan Start: 01/05/19 09:19 Freq: Status: Active Protocol: Document 01/26/19 17:53 [facility] (Rec: 01/26/19 18:09 [facility] [id number]) Physical Therapy Assessment Assessment Summary Assessment left elevated first rib adn Yudi could feel this with serratus anterior work on the foam roll. she tolerated first rib mobs well and is noting improvements with mobility of the thoracic spine and rib cage Physical Therapy Plan Next Visit Focus/Plan Next Note Type Treatment Note Next Visit Plan continue to work on progressing tolerance for standing and walking, pts goal is to take kids to [facility] in Apr
--- NOTE | 2019-01-30 12:32 | PT.OTN ---
Current Diagnoses Radiculopathy, cervical region (01/28/19) Dorsalgia, unspecified (01/28/19) Physical Therapy Treatment Note PT-OP-A Visit Information Start: 01/05/19 09:19 Freq: Status: Active Protocol: Document 01/28/19 16:00 [facility] (Rec: 01/30/19 12:31 [facility] [email or web address]) Out-Patient Physical Therapy Visit Information Visit Information Visit Type Treatment Note Visit Start Time 16:00 Visit Stop Time 16:45 Total Visit Minutes 45 Visit Number 8 PT-OP-B Current Condition Start: 01/05/19 09:19 Freq: Status: Active Protocol: Document 01/05/19 09:45 [facility] (Rec: 01/06/19 09:42 [facility] [email or web address]) Current Condition History of Current Condition Onset Date 1 year ago Current Complaints c/o cervical, thoracic, lumbar pain History of Current Condition 28 year old female 2 para 2 with chronic back and neck pain. 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 She was seen for pelvic floor PT following her hysterectomy. She has recent X-rays taken that reveal minimal mild throacic spondylosis, loss of cervical lordosis and minimal thoraco lumbar junction spondylosis. Yudi reports her pain worsens as the day goes on. The majority of her pain is located in the thoraco lumbar region with pain rated 6-7/10. She also reports left rib cage paint hat seems to wrap around from the back. Her neck pain is rated 4/10. Other past medical history includes Cholecystectomy, jaw pain, dizziness, headaches Treatment Goals Patient/Caregiver Goals The patients goals include being able to walk around [facility] without as much pain with her family in April of 2019. Prior Functional Status Baseline Function- ADL's Independent Baseline Function- Mobility Independent Current Functional Impairments (Reported) Functional Limitations- ADL's pain with ADL's that require bending or lifting, sleep is disturbed, pt is limited to being on her feet for no more than a hour and a half at a time due to pain. PT-OP-C Subjective Start: 01/05/19 09:19 Freq: Status: Active Protocol: Document 01/28/19 16:00 [facility] (Rec: 01/30/19 12:31 [facility] [email or web address]) OP-PT Subjective Patient Comments Patient Comments pt reports she has felt pops in her thoracic spine and rig cage and feels it is more moble PT-OP-F Manual Assessment Start: 01/05/19 09:19 Freq: Status: Active Protocol: Document 01/05/19 09:45 [facility] (Rec: 01/06/19 11:21 [facility] [email or web address]) Manual Assessments Soft Tissue Assessment Soft Tissue Mobility Assessment very tight and guarded thoracic and lumbar paraspinals, fascial restrictions in the left quadratus lumborum and throacolumbar fascia, restrictions in the left greater than right iliopsoas Joint Mobility Assessment Joint Mobility Assessment increased lumbar lorosis with hinge seen at the L4-L5 vertebrae, throacic spine is rotated right, increased kyphosis in the thoracic spine , hypomobility of thoracic extension PT-OP-J Posture/Palpation/Skin Start: 01/05/19 09:19 Freq: Status: Active Protocol: Document 01/05/19 09:45 [facility] (Rec: 01/06/19 11:21 [facility] [email or web address]) Posture Evaluation Position Standing Evaluation View Lateral Head/C-Spine Posture Flexed,C-Spine Flattened T-Spine Posture Rotation Right,Increased Kyphosis Thorax Posture (R) Prominent L-Spine Posture Increased Lordosis Shoulder Posture (L) Forward,(R) Forward Comments Posture Comments pt has visable left sided muscle guarding raising the left pelvis, there is a visable hinge in the L4-5 junction and throacic spine is rotated right, forward head and thoracic posture. PT-OP-K Range of Motion Start: 01/05/19 09:19 Freq: Status: Active Protocol: Document 01/05/19 09:45 [facility] (Rec: 01/07/19 09:12 [facility] [email or web address]) Lumbar Spine Range of Motion Lumbar Spine Active Testing Position Standing Flexion 60 Extension 10 Rotation Left 30 Rotation Right 30 Lateral Flexion Left 10 Lateral Flexion Right 10 ROM Limitations Soft Tissue Tightness,Muscle Tone,Pain Comments hinges at L4-5 and extension increases pain PT-OP-M Strength Start: 01/05/19 09:19 Freq: Status: Active Protocol: Document 01/05/19 09:45 [facility] (Rec: 01/07/19 09:29 [facility] [email or web address]) Trunk Strength Trunk Manual Muscle Testing Testing Position Supine Core Stabilization poor transverse abdominal activation and Yudi notes she is still numb from her C- section scar PT-OP-Q Treatments Start: 01/05/19 09:19 Freq: Status: Active Protocol: Document 01/28/19 16:00 [facility] (Rec: 01/30/19 12:31 [facility] [email or web address]) Therapeutic Exercises Supine Exercises 10 Supine Exercise Name foam roll stretch Comments with serratus anterior punches 6 Supine Exercise Name supine adductor squeeze 5 Supine Exercise Name foam roll stretch Comments 1/2 foam roll 4 Supine Exercise Name TA with marches Comments trial of both directions 2 Supine Exercise Name modified squat stretch Side bilateral Reps/Minutes hold 1-2 minutes Prone Exercises 2 Prone Exercise Name prone thoracic extensions 1 Prone Exercise Name cobra stretch Sidelying Exercises 1 Sidelying Exercise Name core activation with legs in 90/90 degrees Reps/Minutes 5 sec hold x 10 reps Sitting Exercises 1 Sitting Exercise Name seated sidebending stretch Side bilateral Reps/Minutes x 5 reps each Standing Exercises 1 Standing Exercise Name standing serratus anterior wall press Other Exercises 7 Other Exercise Name quadraped thoracic extension with elbows on a 6 step 5 Other Exercise Name iliopspoas half kneeling stretch 4 Other Exercise Name alee pose 2 Other Exercise Name quadruped cat cow and sidebends Reps/Minutes x 10 1 Other Exercise Name cervcial retraction Reps/Minutes x 5 Manual Therapy Treatment Soft Tissue Mobilization 2 Body Location STM over the thoracic spine region Mobilization Type Myofascial Release Joint Mobilizations 1 Joint Thoracic spine PA glides grade II Direction PA Grade II Body Position Prone Comments T 2-T 8 Taping 1 Body Location trial of kinesiotaping for posture Comments lower trap facilitation and pec minor relaxation PT-OP-T Assessment and Plan Start: 01/05/19 09:19 Freq: Status: Active Protocol: Document 01/28/19 16:00 [facility] (Rec: 01/30/19 12:31 [facility] [email or web address]) Physical Therapy Assessment Assessment Summary Assessment trial of postural kinesio tape today, improving mobility of the thoracic spine, lower T- spine still needs increased mobility Physical Therapy Plan Frequency and Duration Frequency of Treatment 2x/Week Duration of Treatment 8 Plan of Care Start Date 01/05/19 Plan of Care End Date 03/02/19 Next Visit Focus/Plan Next Note Type Treatment Note Next Visit Plan continue progressing ther ex for posture and core stabilization
--- NOTE | 2019-02-18 17:20 | PT.OTN ---
Current Diagnoses Radiculopathy, cervical region (02/18/19) Dorsalgia, unspecified (02/18/19) Physical Therapy Treatment Note PT-OP-A Visit Information Start: 01/05/19 09:19 Freq: Status: Active Protocol: Document 02/18/19 17:10 [facility] (Rec: 02/18/19 17:19 [facility] [email or web address]) Out-Patient Physical Therapy Visit Information Visit Information Visit Type Treatment Note Visit Start Time 16:00 Visit Stop Time 16:45 Total Visit Minutes 45 Visit Number 9 PT-OP-B Current Condition Start: 01/05/19 09:19 Freq: Status: Active Protocol: Document 01/05/19 09:45 [facility] (Rec: 01/06/19 09:42 [facility] [email or web address]) Current Condition History of Current Condition Onset Date 1 year ago Current Complaints c/o cervical, thoracic, lumbar pain History of Current Condition 28 year old female 2 para 2 with chronic back and neck pain. 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 She was seen for pelvic floor PT following her hysterectomy. She has recent X-rays taken that reveal minimal mild throacic spondylosis, loss of cervical lordosis and minimal thoraco lumbar junction spondylosis. Yudi reports her pain worsens as the day goes on. The majority of her pain is located in the thoraco lumbar region with pain rated 6-7/10. She also reports left rib cage paint hat seems to wrap around from the back. Her neck pain is rated 4/10. Other past medical history includes Cholecystectomy, jaw pain, dizziness, headaches Treatment Goals Patient/Caregiver Goals The patients goals include being able to walk around [facility] without as much pain with her family in April of 2019. Prior Functional Status Baseline Function- ADL's Independent Baseline Function- Mobility Independent Current Functional Impairments (Reported) Functional Limitations- ADL's pain with ADL's that require bending or lifting, sleep is disturbed, pt is limited to being on her feet for no more than a hour and a half at a time due to pain. PT-OP-C Subjective Start: 01/05/19 09:19 Freq: Status: Active Protocol: Document 02/18/19 17:10 [facility] (Rec: 02/18/19 17:19 [facility] [email or web address]) OP-PT Subjective Patient Comments Patient Comments pt reports she was doing really well until [place] and hurt [place]. Her ribs feel really sore now and she is having difficulty doing all the exercises PT-OP-F Manual Assessment Start: 01/05/19 09:19 Freq: Status: Active Protocol: Document 01/05/19 09:45 [facility] (Rec: 01/06/19 11:21 [facility] [email or web address]) Manual Assessments Soft Tissue Assessment Soft Tissue Mobility Assessment very tight and guarded thoracic and lumbar paraspinals, fascial restrictions in the left quadratus lumborum and throacolumbar fascia, restrictions in the left greater than right iliopsoas Joint Mobility Assessment Joint Mobility Assessment increased lumbar lorosis with hinge seen at the L4-L5 vertebrae, throacic spine is rotated right, increased kyphosis in the thoracic spine , hypomobility of thoracic extension PT-OP-J Posture/Palpation/Skin Start: 01/05/19 09:19 Freq: Status: Active Protocol: Document 01/05/19 09:45 [facility] (Rec: 01/06/19 11:21 [facility] [email or web address]) Posture Evaluation Position Standing Evaluation View Lateral Head/C-Spine Posture Flexed,C-Spine Flattened T-Spine Posture Rotation Right,Increased Kyphosis Thorax Posture (R) Prominent L-Spine Posture Increased Lordosis Shoulder Posture (L) Forward,(R) Forward Comments Posture Comments pt has visable left sided muscle guarding raising the left pelvis, there is a visable hinge in the L4-5 junction and throacic spine is rotated right, forward head and thoracic posture. PT-OP-K Range of Motion Start: 01/05/19 09:19 Freq: Status: Active Protocol: Document 01/05/19 09:45 [facility] (Rec: 01/07/19 09:12 [facility] [email or web address]) Lumbar Spine Range of Motion Lumbar Spine Active Testing Position Standing Flexion 60 Extension 10 Rotation Left 30 Rotation Right 30 Lateral Flexion Left 10 Lateral Flexion Right 10 ROM Limitations Soft Tissue Tightness,Muscle Tone,Pain Comments hinges at L4-5 and extension increases pain PT-OP-M Strength Start: 01/05/19 09:19 Freq: Status: Active Protocol: Document 01/05/19 09:45 [facility] (Rec: 01/07/19 09:29 [facility] [email or web address]) Trunk Strength Trunk Manual Muscle Testing Testing Position Supine Core Stabilization poor transverse abdominal activation and Yudi notes she is still numb from her C- section scar PT-OP-Q Treatments Start: 01/05/19 09:19 Freq: Status: Active Protocol: Document 02/18/19 17:10 [facility] (Rec: 02/18/19 17:19 [facility] [email or web address]) Therapeutic Exercises Supine Exercises Pelvic realignment exericses Supine Exercise Name adductor squeeze Reps/Minutes x 10 reps 4 Supine Exercise Name TA with marches Comments trial of both directions Prone Exercises 1 Prone Exercise Name cobra stretch Sitting Exercises 1 Sitting Exercise Name seated sidebending stretch Side bilateral Reps/Minutes x 5 reps each Other Exercises 7 Other Exercise Name quadraped thoracic extension with elbows on a 6 step 4 Other Exercise Name alee pose 2 Other Exercise Name quadruped cat cow and sidebends Reps/Minutes x 10 Manual Therapy Treatment Soft Tissue Mobilization 2 Body Location STM over the thoracic spine region Mobilization Type Myofascial Release Joint Mobilizations 1 Joint Thoracic spine PA glides grade II Direction PA Grade II Body Position Prone Comments T 2-T 8 Manual Techniques 2 Type MET left anterior rotation Reps/Duration x 5 reps PT-OP-T Assessment and Plan Start: 01/05/19 09:19 Freq: Status: Active Protocol: Document 02/18/19 17:10 [facility] (Rec: 02/18/19 17:19 [facility] [email or web address]) Physical Therapy Assessment Assessment Summary Assessment pt was really sore today from her fall. She had pain in her left rib cage again and had difficulty with the thoracic rotation exercises. Her pelvis was shifted so I did a correction technique for that and then abdominal bracing exercises. Physical Therapy Plan Frequency and Duration Frequency of Treatment 2x/Week Duration of Treatment 8 Plan of Care Start Date 01/05/19 Plan of Care End Date 03/02/19 Therapeutic Interventions Therapeutic Interventions Home Exercise Program,Joint Mobilizations,Manual Therapy, Neuromuscular Re-education, Patient/Caregiver Education, Self-Care/Home Management,Soft Tissue Mobilization, Therapeutic Activities, Therapeutic Exercises Modalities Cold Pack/Ice Massage,Electric Stimulation Next Visit Focus/Plan Next Note Type Treatment Note Next Visit Plan recheck alignment next visit and revisit kinesiotape
--- NOTE | 2019-09-15 16:40 | PT.OPDS ---
Current Diagnoses Radiculopathy, cervical region (03/02/19) Dorsalgia, unspecified (03/02/19) Visit Care Team Role Provider Type TAMERA Evans Attending Provider Advanced Security Intern Primary Care Provider Specialty: [facility] Address: [address] [place] [address], [facility] [place] [place], [facility] Email: [email or web address] Visit Number Visit Number 11 Discharge Summary PT-OP-B Current Condition Start: 01/05/19 09:19 Freq: Status: Active Protocol: Document 01/05/19 09:45 [facility] (Rec: 01/06/19 09:42 [facility] [email or web address]) Current Condition History of Current Condition Onset Date 1 year ago Current Complaints c/o cervical, thoracic, lumbar pain History of Current Condition 28 year old female 2 para 2 with chronic back and neck pain. 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 She was seen for pelvic floor PT following her hysterectomy. She has recent X-rays taken that reveal minimal mild throacic spondylosis, loss of cervical lordosis and minimal thoraco lumbar junction spondylosis. Yudi reports her pain worsens as the day goes on. The majority of her pain is located in the thoraco lumbar region with pain rated 6-7/10. She also reports left rib cage paint hat seems to wrap around from the back. Her neck pain is rated 4/10. Other past medical history includes Cholecystectomy, jaw pain, dizziness, headaches Treatment Goals Patient/Caregiver Goals The patients goals include being able to walk around [facility] without as much pain with her family in April of 2019. Prior Functional Status Baseline Function- ADL's Independent Baseline Function- Mobility Independent Current Functional Impairments (Reported) Functional Limitations- ADL's pain with ADL's that require bending or lifting, sleep is disturbed, pt is limited to being on her feet for no more than a hour and a half at a time due to pain. PT-OP-C Subjective Start: 01/05/19 09:19 Freq: Status: Active Protocol: Document 03/02/19 16:57 [facility] (Rec: 03/02/19 17:03 [facility] [email or web address]) OP-PT Subjective Patient Comments Patient Comments pt reports she did better this past week with her pain levels. She went to a body flow class at the gym yesterday and was able to do a lot. She is sore today from the class PT-OP-F Manual Assessment Start: 01/05/19 09:19 Freq: Status: Active Protocol: Document 01/05/19 09:45 [facility] (Rec: 01/06/19 11:21 [facility] [email or web address]) Manual Assessments Soft Tissue Assessment Soft Tissue Mobility Assessment very tight and guarded thoracic and lumbar paraspinals, fascial restrictions in the left quadratus lumborum and throacolumbar fascia, restrictions in the left greater than right iliopsoas Joint Mobility Assessment Joint Mobility Assessment increased lumbar lorosis with hinge seen at the L4-L5 vertebrae, throacic spine is rotated right, increased kyphosis in the thoracic spine , hypomobility of thoracic extension PT-OP-J Posture/Palpation/Skin Start: 01/05/19 09:19 Freq: Status: Active Protocol: Document 01/05/19 09:45 [facility] (Rec: 01/06/19 11:21 [facility] [email or web address]) Posture Evaluation Position Standing Evaluation View Lateral Head/C-Spine Posture Flexed,C-Spine Flattened T-Spine Posture Rotation Right,Increased Kyphosis Thorax Posture (R) Prominent L-Spine Posture Increased Lordosis Shoulder Posture (L) Forward,(R) Forward Comments Posture Comments pt has visable left sided muscle guarding raising the left pelvis, there is a visable hinge in the L4-5 junction and throacic spine is rotated right, forward head and thoracic posture. PT-OP-K Range of Motion Start: 01/05/19 09:19 Freq: Status: Active Protocol: Document 01/05/19 09:45 [facility] (Rec: 01/07/19 09:12 [facility] [email or web address]) Lumbar Spine Range of Motion Lumbar Spine Active Testing Position Standing Flexion 60 Extension 10 Rotation Left 30 Rotation Right 30 Lateral Flexion Left 10 Lateral Flexion Right 10 ROM Limitations Soft Tissue Tightness,Muscle Tone,Pain Comments hinges at L4-5 and extension increases pain PT-OP-M Strength Start: 01/05/19 09:19 Freq: Status: Active Protocol: Document 01/05/19 09:45 [facility] (Rec: 01/07/19 09:29 [facility] [email or web address]) Trunk Strength Trunk Manual Muscle Testing Testing Position Supine Core Stabilization poor transverse abdominal activation and Yudi notes she is still numb from her C- section scar PT-OP-T Assessment and Plan Start: 01/05/19 09:19 Freq: Status: Active Protocol: Document 09/15/19 16:35 [facility] (Rec: 09/15/19 16:40 [facility] [email or web address]) Physical Therapy Assessment Assessment Summary Assessment Patient has not been seen since February. At that time Yudi was working on her exercises independently. Her pain levels were decreasing. She will be discharged from PT at this time Physical Therapy Plan Discharge Physical Therapy Discharge Reasons Patient Request Discharge Comments pt felt independent with her home exercise program
== END 2019-09-21 09:07 ==
LOC: PHYS 13:45
PROVIDERS: PCP Internal Medicine; Visit Provider Internal Medicine
DX: M54.9 Dorsalgia, unspecified (principal); M54.12 Radiculopathy, cervical region
CPT/HCPCS: 97110; 97140; 97161

== ENCOUNTER → 2019-06-05 08:51 | Outpatient (CLI) | payer OTHER, SELFPAY ==
[2019-06-05 11:01] LABS: Follicle Stimulating Hormone 5.06 mIU/mL
[2019-06-05 11:17] LABS: Estradiol, Total 266.5 pg/mL
== END ==
PROVIDERS: PCP Internal Medicine; Referring Provider Obstetrics & Gynecology; Visit Provider Obstetrics & Gynecology
DX: N95.1 Menopausal and female climacteric states (principal); R68.89 Other general symptoms and signs
CPT/HCPCS: 36415; 82670; 83001; 84443

== ENCOUNTER → 2019-09-21 10:01 | Outpatient (CLI) | payer OTHER, SELFPAY ==
--- NOTE | 2019-09-21 10:05 | DIET.PN ---
Dietary Progress Note Assessment: 28y F referred to nutrition for help c obesity and insulin resistance secondary to PCOS. Pt currently taking 500mg once day in evening Metformin c Estrogen Pt has 2 children (3y and 5y) and who is in [employer] Pt gains weight easily and has difficulty losing because of PCOS Pt has had 8 abdominal surgeries- 2 Csections, total hysterectomy, gall bladder out, significant abd scar tissue, loss of sensation, and muscle atrophy. Prefers familiar foods, not adventurous eater. likes taste of peppers and onions but not slimy texture. Gluten sensitive, gets bloating, usually eats GF but not much gluten-alternative products Usual Day: 7-8am wakes, drinks water, gets kids up and fed tries not to eat until 10am 2 corn tortillas, cheese and ham 6pm burgers and hot dogs because summer, tator tots, chicken and veggies, roasted potatoes Tends to snack with kids, mac n cheese and fruit snacks Sometimes SF red bull or Spark, water bedtime snack Craves: salty crunchy and sweets-chocolate, gummy sour candies Pts diet is typical for [place] mom of young kids. Diet is low in F/V, dietary fiber, and overrepresented by carbs. Pt endorses stress eating. HT: 5'2 WT: 205# Weight Goal: 155# BMI: 37.5 Nutrition Diagnosis: abnormal weight gain r/t insulin sensitivity secondary to PCOS aeb pt can easily gain weight but difficulty losing, pt on estrogen and Metformin for IR, pt BMI 37.5 Interventions: 1. Discussed PCOS and insulin resistance. To increase insulin sensitivity, pt will experiment with 16/8 intermittent fasting, ideally daily, but even a few days per week or in spurts. To increase insulin sensitivity, pt will start walking 10 minutes after meals, do her beach body workouts, and go on Mom Walks with a friend. This will also assist in healthy weight reduction. 2. Discussed healthy plate balance. Pt's diet is skewed towards protein and carbs. Pt will keep F/V and lean meats stocked up at home to prioritize intake of these foods. Pt does not like to cut up fresh fruits/veg, notices they go bad if she buys them whole, so pt will continue to purchase pre-sliced F/V to increase success of this intervention. Monitoring/Evaluations: pt will call for f/u appt
== END ==
PROVIDERS: PCP Internal Medicine; Referring Provider Obstetrics & Gynecology; Visit Provider Obstetrics & Gynecology
DX: E88.81 Metabolic syndrome and other insulin resistance (principal); E28.2 Polycystic ovarian syndrome; E66.9 Obesity, unspecified; Z68.37 Body mass index [BMI] 37.0-37.9, adult; Z71.3 Dietary counseling and surveillance
CPT/HCPCS: 97802

== ENCOUNTER 2019-12-05 18:20 | Emergency (ER) | payer OTHER, SELFPAY ==
[2019-12-05 18:24] VITALS: BP 127/70; PULSE 88; RESP 20; TEMP 36.8; O2SAT 98
--- NOTE | 2019-12-05 19:17 | DI.CT.S_ITS ---
PROCEDURE: CT CERVICAL SPINE WO CON INDICATIONS: c spine pain after fall TECHNIQUE: Noncontrast 3 mm thick sections acquired from the skull base to the T4 level. Sagittal and coronal reformats were then constructed. For radiation dose reduction, the following was used: automated exposure control, adjustment of mA and/or kV according to patient size. COMPARISON: None. FINDINGS: Image quality: Excellent. Bones: No acute fractures or dislocations. Straightening of the cervical spine is nonspecific and may be related to positioning. No surrounding soft tissue edema is seen to suggest ligamentous injury. Visualized superior ribs are intact. Soft tissues: Prevertebral soft tissues are normal in thickness. No paravertebral hematomas. No apical pneumothoraces. IMPRESSION: No acute cervical spine fracture. Dictated by: Patric Rojas M.D. on 12/05/2019 at 19:52 Approved by: Patric Rojas M.D. on 12/05/2019 at 19:55
--- NOTE | 2019-12-05 19:17 | DI.RAD.S_ITS ---
PROCEDURE: XR LUMBAR SPINE 2-3V INDICATIONS: pain sp fall TECHNIQUE: 3 views of the lumbar spine were acquired. COMPARISON: [facility], CR, XR LUMBAR SPINE 2-3V, 11/25/2018, 16:21. FINDINGS: Bones: Five [id number] vertebrae are present. There is normal bony alignment. No vertebral body compression fractures. No suspicious bony lesions. Minimal degenerative endplate changes are seen in the lower thoracic and lumbar spine. Soft tissues: Overlying bowel gas pattern is normal. No suspicious soft tissue calcifications. Cholecystectomy clips are noted. IMPRESSION: No acute osseous abnormality. Minimal degenerative changes in the lumbar spine have not significantly changed when compared to the radiographs from 11/25/2018. Dictated by: Patric Roajs M.D. on 12/05/2019 at 19:55 Approved by: Patric Rojas M.D. on 12/05/2019 at 19:56
--- NOTE | 2019-12-05 19:17 | DI.RAD.S_ITS ---
PROCEDURE: XR RIBS RT MIN 3V W CXR 1V INDICATIONS: pain sp fall TECHNIQUE: 2 views of the right ribs were acquired, along with a single view chest. COMPARISON: None. FINDINGS: Surgical changes and devices: None. Bones and chest wall: No acute displaced fractures or dislocations. No suspicious bony lesions. Overlying soft tissues appear unremarkable. Lungs and pleura: No pleural effusions or pneumothorax. Lungs appear clear. Mediastinum: Mediastinal contours appear normal. Heart size is normal. IMPRESSION: No acute displaced rib fracture. No pleural effusion or pneumothorax. Dictated by: Patric Rojas M.D. on 12/05/2019 at 19:51 Approved by: Patric Rojas M.D. on 12/05/2019 at 19:52
[2019-12-05] MEDS: KETOROLAC 60 MG/2 ML VIAL 30 MG IM (20:18)
[2019-12-05] MEDS: LIDOCAINE PATCH 1 EACH ADH..PATCH TOP (20:18)
[2019-12-05] MEDS: CYCLOBENZAPRINE 10 MG TABLET PO (20:18)
[2019-12-05 20:50] VITALS: BP 110/64; PULSE 72; RESP 16; O2SAT 97
--- NOTE | 2019-12-05 20:55 | ED.FALL ---
HPI - Fall <SHARIF Crooks - Last Filed: 12/05/19 21:04> General Chief Complaint: Fall Stated Complaint: fall down stairs yesterday, lower back pain Time Seen by Provider: 12/05/19 18:53 Source: patient Mode of arrival: Ambulatory Limitations: no limitations History of Present Illness HPI Narrative: The patient is a 29-year-old female with history C-sections, nonsmoker who presents with a chief complaint of a fall down a few stairs last night. She slipped while going down the stairs and hit her lower back on subsequent stairs. She states it happened very early yesterday morning. She complains of lower back pain, right-sided rib pain. She states she did not hit her head, no loss of consciousness. Did not feel dizzy or lightheaded. Her she does complain of some neck pain. She denies any nausea or vomiting. She has taken some Tylenol Motrin, but states that her pain is getting worse and she is worried that she has fractures. She denies any incontinence of bowel, incontinence of bladder or saddle anesthesia. Related Data Previous Rx's Medication Instructions Recorded estradiol 1 mg tablet See Rx Instructions .ROUTE 04/08/19 .COMPLEX #90 tablet CMP Testosterone cream 2% See Rx Instructions .ROUTE 04/21/19 .COMPLEX #30 gram metformin 500 mg tablet See Rx Instructions .ROUTE 11/05/19 .COMPLEX #60 tablet cyclobenzaprine 10 mg PO TID PRN #20 tab 12/05/19 ketorolac 10 mg PO TID PRN #14 tab 12/05/19 lidocaine 1 patch TOP DAILY PRN #15 each 12/05/19 Allergies Allergy/AdvReac Type Severity Reaction Status Date / Time nitrofurantoin Allergy Mild hives/dizzi Verified 09/23/19 14:55 [NITROFURANTOIN] ness Review of Systems <SHARIF Crooks - Last Filed: 12/05/19 21:04> Review of Systems Narrative: GENERAL: Denies chills, fatigue, malaise, fever, sweats. HEENT: Denies sinus pain, ear pain, sore throat, difficulty swallowing, dizziness. RESPIRATORY: See HPI CARDIOVASCULAR: Denies chest pain, palpitations, orthopnea, edema, GASTROINTESTINAL: Denies nausea, vomiting, abdominal pain, diarrhea, constipation, melena. : Denies dysuria, frequency, incontinence, hematuria, urinary retention. MUSCULOSKELETAL: See HPI SKIN: Denies rash, skin lesions, or other NEUROLOGIC: Denies weakness, headache, numbness, change in speech, confusion, seizures, incoordination. PSYCHIATRIC: No concerning psychosocial issues. 12 point review of systems is negative except for those stated above Patient History <SHARIF Crooks - Last Filed: 12/05/19 21:04> Medical History Encounter for screening for malignant neoplasm of vagina (Acute) Insulin resistance (Chronic) Surgical History History of salpingectomy (Resolved 05/12/17) History of third molar tooth extraction (Resolved 2004) Status post delivery (Resolved 05/27/14) Status post cone biopsy of cervix (Resolved 10/21/14) Status post hysterectomy (Resolved 05/12/17) Status post laparoscopy (Resolved 2010) Status post loop electrosurgical excision procedure (LEEP) of cervix (Resolved 09/02/14) Social History Smoking Status: Never smoker Smoking Status: Never smoker Exam <SHARIF Crooks - Last Filed: 12/05/19 21:04> Narrative Exam Narrative: GENERAL: This is a well-nourished, well-developed patient, in appears uncomfortable HEAD: Atraumatic. Normocephalic. No temporal or scalp tenderness. EYES: Pupils equal round and reactive. Extraocular motions intact. No scleral icterus. No injection or drainage. ENT: Nose without bleeding, purulent drainage or septal hematoma. Throat without erythema, tonsillar hypertrophy or exudate. Uvula midline. Airway patent. NECK: Trachea midline. No JVD or lymphadenopathy. Supple, nontender, no meningeal signs. CARDIOVASCULAR: Regular rate and rhythm without murmurs, gallops, or rubs. RESPIRATORY: Clear to auscultation. Breath sounds equal bilaterally. No wheezes, rales, or rhonchi. Pain to palpation right lateral lower ribs. Pain to lateral chest wall compression. GASTROINTESTINAL: Abdomen soft, non-tender, nondistended. No hepato-splenomegaly, or palpable masses. No guarding. Active bowel sounds all 4 quadrants. EXTREMITIES: No clubbing, cyanosis, or edema. No joint tenderness, effusion, or edema noted. BACK: pain to midline C-spine palpation. Pain to lumbar spinal palpation. No pain to C-spine palpation. No palpable deformity or crepitance throughout. No flank tenderness. NEURO: AOx3. Interactive. Age appropriate. Stable gait. Strength is equal upper and lower extremities bilaterally SKIN: No rash or erythema on visible skin Initial Vital Signs Initial Vital Signs: Vital Signs Temperature 98.2 F 12/05/19 18:24 Pulse Rate 88 12/05/19 18:24 Respiratory Rate 12/05/19 18:24 Blood Pressure 127/70 12/05/19 18:24 Pulse Oximetry 98 12/05/19 18:24 <Jovany Zamora MD - Last Filed: 12/06/19 00:07> Initial Vital Signs Initial Vital Signs: Vital Signs Temperature 98.2 F 12/05/19 18:24 Pulse Rate 88 12/05/19 18:24 Respiratory Rate 12/05/19 18:24 Blood Pressure 127/70 12/05/19 18:24 Pulse Oximetry 98 12/05/19 18:24 Scores <SHARIF Crooks - Last Filed: 12/05/19 21:04> [place] CT Head Rule Age is <16 years old: No Patient on blood thinners: No Seizure after injury: No Exclusion: Patient NOT Excluded, Proceed to next steps GCS < 15 at 2 hr post trauma: No Suspected open or depressed skull fracture: No Any sign of basilar skull fracture (hemotympanum, raccoon eyes, Goodson's sign, CSF jesica-/rhinorrhea): No Two or more episodes of vomiting: No Age greater or equal to 65 years: No Retrograde amnesia to the event greater or equal to 30 min: No Dangerous Mechanism (pedestrian vs. mv, occupant ejected from mv, fall from >3 ft or > 5 stairs): No GCS [place] coma scale eye opening: Spontaneous [place] coma scale verbal response: Orientated Cele coma scale motor response: Obey commands [place] coma scale total score: 15 Course <SHARIF Crooks - Last Filed: 12/05/19 21:04> Orders Ordered: ED Orders 12/05/19 19:17 CT cervical spine wo con Stat XR lumbar spine 2-3V Stat XR ribs RT min 3V w CXR1V Stat Discontinued Medications Cyclobenzaprine HCl (Flexeril) 10 mg PO NOW ONE Stop: 12/05/19 20:13 Last Admin: 12/05/19 20:18 Dose: 10 mg Documented by: KEMAR Ketorolac Tromethamine (Toradol) 30 mg IM NOW ONE Stop: 12/05/19 20:13 Last Admin: 12/05/19 20:18 Dose: 30 mg Documented by: KEMAR Lidocaine (Lidoderm) 1 each TOP NOW ONE Stop: 12/05/19 20:13 Last Admin: 12/05/19 20:18 Dose: 1 each Documented by: KEMAR Vital Signs Vital signs: Vital Signs - 8 hr 12/05/19 18:24 12/05/19 20:50 Temperature 98.2 F Pulse Rate 88 72 Respiratory Rate 20 16 Blood Pressure 127/70 110/64 Pulse Oximetry 98 97 <Jovany Zamora MD - Last Filed: 12/06/19 00:07> Orders Ordered: ED Orders 12/05/19 19:17 CT cervical spine wo con Stat XR lumbar spine 2-3V Stat XR ribs RT min 3V w CXR1V Stat Discontinued Medications Cyclobenzaprine HCl (Flexeril) 10 mg PO NOW ONE Stop: 12/05/19 20:13 Last Admin: 12/05/19 20:18 Dose: 10 mg Documented by: KEMAR Ketorolac Tromethamine (Toradol) 30 mg IM NOW ONE Stop: 12/05/19 20:13 Last Admin: 12/05/19 20:18 Dose: 30 mg Documented by: KEMAR Lidocaine (Lidoderm) 1 each TOP NOW ONE Stop: 12/05/19 20:13 Last Admin: 12/05/19 20:18 Dose: 1 each Documented by: KEMAR Vital Signs Vital signs: Vital Signs - 8 hr 12/05/19 18:24 12/05/19 20:50 Temperature 98.2 F Pulse Rate 88 72 Respiratory Rate 20 16 Blood Pressure 127/70 110/64 Pulse Oximetry 98 97 MDM - Fall <SHARIF Crooks - Last Filed: 12/05/19 21:04> Imaging Data Rib x-ray: Radiologist's Impression: [address] [place] [id number] XRay Report Signed Patient: Yudi Irwin [facility]#: [id number] : 1990Acct:[id number] Age/Sex: 29 / FDate of Service: 12/05/19 Loc: ED Accession Number: [id number] Procedure: XR ribs RT min 3V w CXR1V Ordering Provider: Yudi Gonzalez MINE DEVELOPMENT ENGINEER-BC PROCEDURE: XR RIBS RT MIN 3V W CXR 1V INDICATIONS: pain sp fall TECHNIQUE: 2 views of the right ribs were acquired, along with a single view chest. COMPARISON: None. FINDINGS: Surgical changes and devices: None. Bones and chest wall: No acute displaced fractures or dislocations. No suspicious bony lesions. Overlying soft tissues appear unremarkable. Lungs and pleura: No pleural effusions or pneumothorax. Lungs appear clear. Mediastinum: Mediastinal contours appear normal. Heart size is normal. IMPRESSION: No acute displaced rib fracture. No pleural effusion or pneumothorax. Dictated by: Patric Rojas M.D. on 12/05/2019 at 19:51 Approved by: Patric Rojas M.D. on 12/05/2019 at 19:52 Lumbar x-ray: Radiologist's Impression: [address] [place] [id number] XRay Report Signed Patient: Yudi Irwin [facility]#: [id number] : 1990Acct:[id number] Age/Sex: 29 / FDate of Service: 12/05/19 Loc: ED Accession Number: [id number] Procedure: XR lumbar spine 2-3V Ordering Provider: Yudi Gonzalez MINE DEVELOPMENT ENGINEER-BC PROCEDURE: XR LUMBAR SPINE 2-3V INDICATIONS: pain sp fall TECHNIQUE: 3 views of the lumbar spine were acquired. COMPARISON: [facility], [place]JANA, XR LUMBAR SPINE 2-3V, 11/25/2018, 16:21. FINDINGS: Bones: Five [id number] vertebrae are present. There is normal bony alignment. No vertebral body compression fractures. No suspicious bony lesions. Minimal degenerative endplate changes are seen in the lower thoracic and lumbar spine. Soft tissues: Overlying bowel gas pattern is normal. No suspicious soft tissue calcifications. Cholecystectomy clips are noted. IMPRESSION: No acute osseous abnormality. Minimal degenerative changes in the lumbar spine have not significantly changed when compared to the radiographs from 11/25/2018. Dictated by: Patric Rojas M.D. on 12/05/2019 at 19:55 Approved by: Patric Rojas M.D. on 12/05/2019 at 19:56 CT scan - head: Radiologist's Impression: formerly [facility] [address] [place] [id number] [address] Scan Report Signed Patient: Yudi Irwin [facility]#: [id number] : 1990Acct:[id number] Age/Sex: 29 / FDate of Service: 12/05/19 Loc: ED Accession Number: [id number] Procedure: CT cervical spine wo con Ordering Provider: Yudi Gonzalez MINE DEVELOPMENT ENGINEER- PROCEDURE: CT CERVICAL SPINE WO CON INDICATIONS: c spine pain after fall TECHNIQUE: Noncontrast 3 mm thick sections acquired from the skull base to the T4 level. Sagittal and coronal reformats were then constructed. For radiation dose reduction, the following was used: automated exposure control, adjustment of mA and/or kV according to patient size. COMPARISON: None. FINDINGS: Image quality: Excellent. Bones: No acute fractures or dislocations. Straightening of the cervical spine is nonspecific and may be related to positioning. No surrounding soft tissue edema is seen to suggest ligamentous injury. Visualized superior ribs are intact. Soft tissues: Prevertebral soft tissues are normal in thickness. No paravertebral hematomas. No apical pneumothoraces. IMPRESSION: No acute cervical spine fracture. Dictated by: Patric Rojas M.D. on 12/05/2019 at 19:52 Approved by: Patric Rojas M.D. on 12/05/2019 at 19:55 [facility] Narrative Medical decision making narrative: The patient is a 29-year-old female who presents with a chief complaint of pain after a fall down about 5-6 steps yesterday. She had a mechanical fall and slipped. She is neurologically intact. Her initial exam had pain to C-spine palpation, so she is placed in a C-collar images were obtained. All images came back negative. She was given incentive spirometer teaching for her rib contusion. She feels much improved after the above-stated therapies and prescriptions were supplied. Encouraged follow-up with primary care provider in the next 2-3 days. Discussed at length coming back to the ER for any acute concerns such as incontinence of bowel, incontinence of bladder saddle anesthesia. Patient has no questions or concerns upon discharge and states understanding of return precautions as well as follow-up care. Discharge Plan Departure Patient Disposition: Home Clinical Impression: Chest wall contusion Qualifiers: Encounter type: initial encounter Laterality: right Qualified Code(s): S20.211A - Contusion of right front wall of thorax, initial encounter Neck muscle strain Qualifiers: Encounter type: initial encounter Qualified Code(s): S16.1XXA - Strain of muscle, fascia and tendon at neck level, initial encounter Back pain Qualifiers: Back pain location: low back pain Chronicity: acute Back pain laterality: bilateral Sciatica presence: unspecified whether sciatica present Qualified Code(s): M54.5 - Low back pain Fall down stairs Qualifiers: Encounter type: initial encounter Qualified Code(s): W10.8XXA - Fall (on) (from) other stairs and steps, initial encounter Discharge Date/Time: 12/05/19 21:16 Instructions: How to Use an Incentive Spirometer, Whiplash, DI for Low Back Pain, DI for Rib Contusion, How to Prevent Falls Activity Restrictions/Additional Instructions: Thank you for trusting us with your care today. As discussed, your images came back very well. As I discussed, your x-ray shows no acute fracture. This does not rule out a soft tissue injury such as a ligament or tendon injury. It is important that you follow up with primary care provider, especially if worsening or no improvement. There can be fractures that did not show up on initial x-ray. I have given you a prescription of ketorolac or Toradol. This is an NSAID. Do not combine it with other NSAIDs such as Aleve or ibuprofen. I suggest taking it with some food, as it can irritate your stomach. Please use your incentive spirometer to help prevent pneumonia. Please be aware that the muscle relaxer can be sedating. Do not take and drive or take it with anything else sedating. Please follow-up with primary care provider in the next few days. Please come back to emergency department for any acute concerns such as neurological changes, incontinence of bowel, incontinence of bladder saddle anesthesia I sent 3 prescriptions to [place] for you Prescriptions: New ketorolac 10 mg tablet 10 mg PO TID PRN (Reason: pain) Qty: 14 RF: 0 cyclobenzaprine 10 mg tablet 10 mg PO TID PRN (Reason: muscle spasm) Qty: 20 RF: 0 lidocaine 5 % adhesive patch,medicated 1 patch TOP DAILY PRN (Reason: pain (scale score 1-3)) Qty: 15 RF: 0 No Action estradiol 1 mg tablet See Rx Instructions .ROUTE .COMPLEX Qty: 90 RF: 2 CMP Testosterone cream 2% See Rx Instructions .ROUTE .COMPLEX Qty: 30 RF: 3 metformin 500 mg tablet See Rx Instructions .ROUTE .COMPLEX Qty: 60 RF: 5 Referrals: Diane Tran ARNP [Primary Care Provider] - <Jovany Zamora MD - Last Filed: 12/06/19 00:07> [facility]: I was immediately available in the department for consultation. This documentation has been reviewed and I agree with assessment and plan. Supervised by Jovany Zamora MD
== END 2019-12-05 21:16 | disposition home or self-care (01) ==
PROVIDERS: Emergency Provider Nurse Practitioner Family; PCP Internal Medicine
DX: S20.211A Contusion of right front wall of thorax, initial encounter (principal); S16.1XXA Strain of muscle, fascia and tendon at neck level, initial encounter; M54.5 Low back pain; W10.8XXA Fall (on) (from) other stairs and steps, initial encounter
CPT/HCPCS: 71101; 72100; 72125; 96372; 99284; J1885

== ENCOUNTER → 2020-07-11 07:23 | Outpatient (CLI) | payer OTHER, SELFPAY ==
[2020-07-11 08:29] LABS: D Dimer < 200 ng/mL (<230)
== END ==
PROVIDERS: PCP Family Medicine; Referring Provider Physician Assistant; Visit Provider Physician Assistant
DX: M79.89 Other specified soft tissue disorders (principal)
CPT/HCPCS: 36415; 85379

== ENCOUNTER 2020-07-31 21:15 | Emergency (ER) | payer OTHER, SELFPAY ==
[2020-07-31 21:24] VITALS: BP 131/68; PULSE 71; RESP 18; TEMP 36.9; O2SAT 98
--- NOTE | 2020-07-31 23:38 | ED_ITS ---
HPI - General Adult General Chief complaint: Dental/Oral Stated complaint: Tooth abscess Time Seen by Provider: 07/31/20 21:26 Source: patient Mode of arrival: Ambulatory Limitations: no limitations History of Present Illness HPI narrative: Patient is a 29-year-old female here for evaluation of left upper tooth discomfort. She states that it started within the past couple days and has worsened since then. She contacted her dentist today who she states tried to call in some antibiotics for her but the pharmacy would not answer the phone so she was told to come to the emergency department. She did not actually see her dentist this was over the phone. Related Data Previous Rx's Medication Instructions Recorded CMP Testosterone cream 2% See Rx Instructions .ROUTE 04/21/19 .COMPLEX #30 gram metformin 500 mg tablet See Rx Instructions .ROUTE 11/05/19 .COMPLEX #60 tablet cyclobenzaprine 10 mg PO TID PRN #20 tab 12/05/19 ketorolac 10 mg PO TID PRN #14 tab 12/05/19 lidocaine 1 patch TOP DAILY PRN #15 each 12/05/19 estradiol 1 mg tablet 1 mg PO DAILY #90 tab 03/01/20 penicillin V potassium 500 mg PO QID 7 Days #28 tab 07/31/20 Allergies Allergy/AdvReac Type Severity Reaction Status Date / Time nitrofurantoin Allergy Mild hives/dizzi Verified 09/23/19 14:55 [NITROFURANTOIN] ness Review of Systems Constitutional Constitutional: Denies fever(s) ENT Comments: Tooth pain Cardiovascular Cardiovascular: Denies dyspnea Respiratory Respiratory: Denies dyspnea Integumentary/Breasts Skin/Breast: Denies rash Neurologic Neurologic: Reports system reviewed and no additional complaints, except as documented Hematologic/Lymphatic On Anticoagulants: No Allergic/Immunologic Allergic/Immunologic: Denies urticaria Patient History Medical History Germain's palsy Encounter for screening for malignant neoplasm of vagina Insulin resistance Surgical History History of salpingectomy (05/12/17) History of third molar tooth extraction (2004) Status post delivery (05/27/14) Status post cone biopsy of cervix (10/21/14) Status post hysterectomy (05/12/17) Status post laparoscopy (2010) Status post loop electrosurgical excision procedure (LEEP) of cervix (09/02/14) Social History Smoking Status: Never smoker Smoking Status: Never smoker Exam Initial Vital Signs Initial Vital Signs: Vital Signs Temperature 98.5 F 07/31/20 21:24 Pulse Rate 71 07/31/20 21:24 Respiratory Rate 18 07/31/20 21:24 Blood Pressure 131/68 07/31/20 21:24 Pulse Oximetry 98 07/31/20 21:24 Const General: cooperative and comfortable Limitations: mental status not altered HENMT Head: normal to inspection and normocephalic Mouth: oral mucosae normal and moist mucous membranes Teeth and gingiva: no caries, fair dentition and multiple restorations Throat: posterior oropharynx normal Resp Effort & Inspection: normal respiratory effort Cardio Rate: regular rate Skin Lesions: no lesions Rashes: no rashes Extrem General: capillary refill normal Psych Appearance: grossly normal and well kempt Course Orders Ordered: Discontinued Medications Penicillin V Potassium (Penicillin Vk 250 Mg Tablet) 500 mg PO NOW ONE Stop: 07/31/20 23:39 Last Admin: 07/31/20 23:42 Dose: 500 mg Documented by: LAURO Vital Signs Vital signs: Vital Signs - 8 hr 07/31/20 21:24 Temperature 98.5 F Pulse Rate 71 Respiratory Rate 18 Blood Pressure 131/68 Pulse Oximetry 98 Medical Decision Making [facility] Narrative Medical decision making narrative: There is no abscess that is seen on the exam today that would be amendable to drainage from the emergency department. Will start the patient on antibiotics and she was given a 1st dose here in the ER and sent home with a prescription. She was given return precautions and there is no airway compromise. Discharge Plan Departure Patient Disposition: Home Clinical Impression: Dental infection Instructions: DI for Dental Pain Activity Restrictions/Additional Instructions: Recommend that you contact your dentist for a follow-up. Start taking the antibiotics as directed. Return to the emergency department for new or worsening symptoms Prescriptions: New penicillin V potassium 500 mg tablet 500 mg PO QID 7 Days Qty: 28 RF: 0 No Action CMP Testosterone cream 2% See Rx Instructions .ROUTE .COMPLEX Qty: 30 RF: 3 metformin 500 mg tablet See Rx Instructions .ROUTE .COMPLEX Qty: 60 RF: 5 estradiol 1 mg tablet 1 mg PO DAILY Qty: 90 RF: 3 ketorolac 10 mg tablet 10 mg PO TID PRN (Reason: pain) Qty: 14 RF: 0 cyclobenzaprine 10 mg tablet 10 mg PO TID PRN (Reason: muscle spasm) Qty: 20 RF: 0 lidocaine 5 % adhesive patch,medicated 1 patch TOP DAILY PRN (Reason: pain (scale score 1-3)) Qty: 15 RF: 0 Referrals: Luiz Schultz MD [Primary Care Provider] -
[2020-07-31] MEDS: PENICILLIN VK 250 MG TABLET 500 MG PO (23:42)
== END 2020-07-31 23:46 | disposition home or self-care (01) ==
PROVIDERS: Emergency Provider Emergency Medicine; PCP Family Medicine
DX: K04.7 Periapical abscess without sinus (principal)
CPT/HCPCS: 99283

== ENCOUNTER → 2022-08-27 07:13 | Outpatient (CLI) | payer OTHER, SELFPAY ==
[2022-08-27 08:10] LABS: Glucose 105 mg/dL (70-100)
[2022-08-27 08:47] LABS: Follicle Stimulating Hormone 3.24 mIU/mL; Luteinizing Hormone 4.73 mIU/mL
[2022-08-28 03:15] LABS: Labcorp Hemoglobin (Hb) A1c 5.6 % (4.8-5.6)
[2022-08-29 10:55] LABS: Insulin Level Total 43.3 uIU/mL (2.6-24.9)
== END ==
PROVIDERS: PCP Family Medicine; Referring Provider Obstetrics & Gynecology; Visit Provider Obstetrics & Gynecology
DX: E88.81 Metabolic syndrome and other insulin resistance (principal)
CPT/HCPCS: 36415; 82947; 83001; 83002; 83036; 83525

== ENCOUNTER → 2022-09-11 13:36 | Outpatient (CLI) | payer OTHER, SELFPAY ==
[2022-09-11 14:23] LABS: Add Manual Diff / Slide Review NO; Basophils Absolute Auto 0 /uL (0-100); Basophils Percent Auto 0.4 % (0-2); Eosinophils Absolute Auto 200 /uL (0-450); Eosinophils Percent Auto 2.8 % (2-4); Hemoglobin 12.8 g/dL (12.0-16.0); Lymphocytes Absolute Auto 2600 /uL (1100-4500); Lymphocytes Percent Auto 31.5 % (25-40); Mean Corpuscular HGB Conc 33.6 % (30-36); Mean Corpuscular Hemoglobin 28.6 PG (26-34); Monocytes Absolute Auto 400 /uL (0-900); Monocytes Percent Auto 5.4 % (3-14); Neutrophils Absolute Auto 5000 /uL (1500-7000); Neutrophils Percent Auto 59.9 % (50-75); Platelet Count 345 X10^3/uL (150-400); Red Blood Cell Count 4.47 X10^6/uL (4.0-5.2); Red Cell Distribution Width 12.7 % (11.6-14.8); White Blood Cell Count 8.3 X10^3/uL (4.5-11.0)
[2022-09-11 14:30] LABS: Uric Acid 5.4 mg/dL (2.5-6.2)
[2022-09-11 14:45] LABS: High Sensitivity CRP - Cardiac 9.7 mg/L (1.0-3.0)
[2022-09-11 15:30] LABS: Erythrocyte Sedimentation Rate 12 MM/HR (0-20)
[2022-09-12 08:18] LABS: Rheumatoid Factor < 8.6 IU/mL (<12.0)
[2022-09-12 18:28] LABS: SS A Ro Sjogrens Antibody < 0.2 AI (0.0-0.9); SS B La Sjogrens Antibody < 0.2 AI (0.0-0.9)
[2022-09-15 18:53] LABS: ANA Screen, IFA Positive (.)
[2022-09-20 13:56] LABS: HLA B27 Negative (.)
== END ==
PROVIDERS: PCP Family Medicine; Referring Provider Ophthalmology; Visit Provider Ophthalmology
DX: H44.111 Panuveitis, right eye (principal); M35.00 Sjogren syndrome, unspecified
CPT/HCPCS: 36415; 81374; 84550; 85025; 85651; 86038; 86140; 86235; 86430

== ENCOUNTER 2023-09-21 15:43 | Emergency (ER) | payer OTHER, SELFPAY ==
[2023-09-21] VITALS (10 sets, daily range): BP systolic 108–142; BP diastolic 58–87; PULSE 79–110; RESP 16–20; TEMP 36.7; O2SAT 95–98; BMI 39.8
--- NOTE | 2023-09-21 16:19 | DI.RAD.S_ITS ---
PROCEDURE: XR HIP W PEL IF DONE RT 2V INDICATIONS: Fall 3 ft with pain TECHNIQUE: AP pelvis with lateral view(s) of the right hip(s). COMPARISON: None. FINDINGS: Bones: No fractures or dislocations. Pelvic ring appears intact. No suspicious bony lesions. Soft tissues: The visualized bowel gas pattern is normal. No suspicious soft tissue calcifications. IMPRESSION: No acute bony abnormality. Dictated by: Huseyin Drummond M.D. on 09/21/2023 at 15:42 Approved by: Huseyin Drummond M.D. on 09/21/2023 at 15:42
--- NOTE | 2023-09-21 17:00 | ED.FALL ---
HPI - Fall General Chief Complaint: Fall Stated Complaint: 3 foot fall through deck, Rt hip and Lt great toe Time Seen by Provider: 09/21/23 16:28 Source: patient Mode of arrival: Ambulatory History of Present Illness HPI Narrative: Patient is a 32-year-old female who is here for evaluation of right hip pain and left great toe pain with dislodgement of the nail of the left great toe. Patient stated that she fell through a hole on a wood deck causing the injuries. No other injuries from the event. Did not lose consciousness. Related Data Home Medications Medication Instructions Recorded Confirmed topiramate 50 mg tablet 50 mg PO BID 08/01/21 08/01/21 Previous Rx's Medication Instructions Recorded cyclobenzaprine 10 mg tablet 10 mg PO TID PRN muscle spasm #20 12/05/19 tabs ketorolac 10 mg tablet 10 mg PO TID PRN pain #14 tabs 12/05/19 lidocaine 5 % topical patch 1 patch topical DAILY PRN pain 12/05/19 (scale score 1-3) #15 ea CMP Testosterone cream 2% See Rx Instructions .Route 08/01/21 .COMPLEX #30 grams estradiol 0.01% (0.1 mg/gram) 0.5 g vaginal 2XW #42.5 grams 10/17/21 vaginal cream (Estrace) estradiol 1 mg tablet See Rx Instructions .Route 04/23/22 .COMPLEX #90 tabs semaglutide 0.25 mg or 0.5 mg (2 0.25 mg (0.2 mL) SUBCUT QWEEK #1.5 09/06/22 mg/1.5 mL) subcutaneous pen mL injector (Ozempic) metformin 500 mg tablet See Rx Instructions .Route 10/08/22 .COMPLEX #120 tabs Allergies Allergy/AdvReac Type Severity Reaction Status Date / Time nitrofurantoin Allergy Mild hives/dizzi Verified 09/21/23 16:14 [NITROFURANTOIN] ness Review of Systems Review of Systems Narrative: See HPI Patient History Medical History Germain's palsy Encounter for screening for malignant neoplasm of vagina Insulin resistance Surgical History (Updated 08/13/21 @ 20:08 by yLnsey Vincent MD) History of salpingectomy (05/12/17) Status post hysterectomy (05/12/17) Status post cone biopsy of cervix (10/21/14) Status post loop electrosurgical excision procedure (LEEP) of cervix (09/02/14) Status post delivery (05/27/14) Status post laparoscopy (2010) History of third molar tooth extraction (2004) Social History Smoking Status: Never smoker Smoking Status: Never smoker Exam Initial Vital Signs Initial Vital Signs: Vital Signs Temperature 98.1 F 09/21/23 16:08 Pulse Rate 103 H 09/21/23 16:08 Respiratory Rate 20 09/21/23 16:08 Blood Pressure 142/65 H 09/21/23 16:08 Pulse Oximetry 98 09/21/23 16:08 Oxygen Delivery Method Room Air 09/21/23 16:08 HENMT Head: normal to inspection and normocephalic Skin Other: Abrasions over the dorsum of the left great toe Neuro General: patient alert, patient awake, patient oriented x3 and moves all extremities Extrem General: normal to inspection and capillary refill normal Other: The avulsion of the toenail to the left great toe. Abrasions over the dorsum of the toe. Procedures Nerve Block Nerve Block 1: Local Anesthetic: lidocaine 1% Amount of anesthesia used (mL): 5 Side: left Nerve Blocks: digital (Great toe) Procedure Successful: Yes Patient Tolerated Procedure: Well Complications: none Course Orders Ordered: ED Orders 09/21/23 16:19 XR hip w pel if done RT 2V Stat 09/21/23 17:05 XR foot LT min 3V Stat Discontinued Medications Bacitracin (Bacitracin Oint 0.9 Gm Pckt) 1 applic TOP NOW ONE Stop: 09/21/23 18:11 Vital Signs Vital signs: Vital Signs - 8 hr 09/21/23 16:08 Temperature 98.1 F Pulse Rate 103 H Respiratory Rate 20 Blood Pressure 142/65 H Pulse Oximetry 98 Oxygen Delivery Method Room Air MDM - Fall Imaging Data Extremity x-ray #1: Radiologist's Impression: PROCEDURE: XR HIP W PEL IF DONE RT 2V INDICATIONS: Fall 3 ft with pain TECHNIQUE: AP pelvis with lateral view(s) of the right hip(s). COMPARISON: None. FINDINGS: Bones: No fractures or dislocations. Pelvic ring appears intact. No suspicious bony lesions. Soft tissues: The visualized bowel gas pattern is normal. No suspicious soft tissue calcifications. IMPRESSION: No acute bony abnormality. Extremity x-ray #2: Radiologist's Impression: PROCEDURE: XR FOOT LT MIN 3V INDICATIONS: L great toe and medial foot injury TECHNIQUE: 3 views of the foot were acquired. COMPARISON: None. FINDINGS: Bones: No fractures or dislocations. No suspicious bony lesions. Prominent plantar calcaneal enthesophyte. Soft tissues: 1st distal phalanx nail bed appears displaced superiorly. No tibiotalar joint effusion. Achilles tendon appears normal. IMPRESSION: No acute fracture or dislocation. MDM Narrative Medical decision making narrative: No fractures noted on the x-rays. Does have skin abrasions. The left great toenail was removed as it was almost completely avulsed with just the skin holding it in place. This was done after a digital block. Patient tolerated this well. Topical antibiotic ointment placed. She was given return precautions and follow-up instructions. She expressed understanding and agreement. Discharge Plan Departure Patient Disposition: Home Clinical Impression: Nail avulsion, toe, Abrasion of skin Instructions: DI for Nail Avulsion Injury Activity Restrictions/Additional Instructions: You can shower like normal and use topical antibiotic ointment over the area. It will be some time before your toenail grows back again. Return to the emergency department for new symptoms. Prescriptions: No Action estradiol [Estrace] 0.01 % (0.1 mg/gram) cream 0.5 g vaginal 2XW Qty: 42.5 3RF estradiol 1 mg tablet See Rx Instructions .ROUTE .COMPLEX Qty: 90 3RF Dose Instruction: TAKE 1 TABLET DAILY Rx Instructions: TAKE 1 TABLET DAILY Ozempic 0.25 mg or 0.5 mg(2 mg/1.5 mL) pen injector 0.25 mg SUBCUT QWEEK Qty: 1.5 3RF Rx Instructions: for 4 weeks metformin 500 mg tablet See Rx Instructions .ROUTE .COMPLEX Qty: 120 11RF Dose Instruction: TAKE ONE TABLET BY MOUTH TWICE DAILY Rx Instructions: Take one tablet PO BID, gradually increasing by 500mg every 2 weeks until you reach 1000mg BID topiramate 50 mg tablet 50 mg PO BID CMP Testosterone cream 2% See Rx Instructions .ROUTE .COMPLEX Qty: 30 3RF Rx Instructions: Place 0.5-1ml to inner thigh daily ketorolac 10 mg tablet 10 mg PO TID PRN (Reason: pain) Qty: 14 0RF cyclobenzaprine 10 mg tablet 10 mg PO TID PRN (Reason: muscle spasm) Qty: 20 0RF lidocaine 5 % adhesive patch,medicated 1 patch TOP DAILY PRN (Reason: pain (scale score 1-3)) Qty: 15 0RF Rx Instructions: leave on most painful area for up to 12 hrs Referrals: Luiz Schultz MD [Primary Care Provider] - Stand Alone Forms: Patient Portal/API
--- NOTE | 2023-09-21 17:05 | DI.RAD.S_ITS ---
PROCEDURE: XR FOOT LT MIN 3V INDICATIONS: L great toe and medial foot injury TECHNIQUE: 3 views of the foot were acquired. COMPARISON: None. FINDINGS: Bones: No fractures or dislocations. No suspicious bony lesions. Prominent plantar calcaneal enthesophyte. Soft tissues: 1st distal phalanx nail bed appears displaced superiorly. No tibiotalar joint effusion. Achilles tendon appears normal. IMPRESSION: No acute fracture or dislocation. Dictated by: Huseyin Drummond M.D. on 09/21/2023 at 16:42 Approved by: Huseyin Drummond M.D. on 09/21/2023 at 16:43
[2023-09-21] MEDS: BACITRACIN OINT 0.9 GM PCKT 1 APPLIC TOP (18:35)
== END 2023-09-21 18:51 | disposition home or self-care (01) ==
PROVIDERS: Emergency Provider Emergency Medicine; PCP Family Medicine
DX: S91.202A Unspecified open wound of left great toe with damage to nail, initial encounter (principal); M79.675 Pain in left toe(s); M25.551 Pain in right hip; W17.89XA Other fall from one level to another, initial encounter; Z79.899 Other long term (current) drug therapy
CPT/HCPCS: 64450; 73502; 73630; 99283

== ENCOUNTER 2024-02-24 08:51 | Emergency (ER) | payer OTHER, SELFPAY ==
[2024-02-24 08:53] VITALS: BP 138/70; PULSE 81; RESP 14; TEMP 36.4; O2SAT 98; BMI 41.1
--- NOTE | 2024-02-24 08:58 | ED.GENADULT ---
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 Patient states that occasionally her ribs will move out of alignment. She was being seen by Physical and Occupational therapy for this and has a prescription for Celebrex, however she says that this does cause her some GI upset. Over the last week she has had worsening in her left-sided pain. Last night she twisted and the pain is much worse. She is here today to ?see what is going on?. Related Data Home Medications Medication Instructions Recorded Confirmed topiramate 50 mg tablet 50 mg PO BID 08/01/21 08/01/21 Previous Rx's Medication Instructions Recorded cyclobenzaprine 10 mg tablet 10 mg PO TID PRN muscle spasm #20 12/05/19 tabs ketorolac 10 mg tablet 10 mg PO TID PRN pain #14 tabs 12/05/19 lidocaine 5 % topical patch 1 patch topical DAILY PRN pain 12/05/19 (scale score 1-3) #15 ea CMP Testosterone cream 2% See Rx Instructions .Route 08/01/21 .COMPLEX #30 grams estradiol 0.01% (0.1 mg/gram) 0.5 g vaginal 2XW #42.5 grams 10/17/21 vaginal cream (Estrace) estradiol 1 mg tablet See Rx Instructions .Route 04/23/22 .COMPLEX #90 tabs semaglutide 0.25 mg or 0.5 mg (2 0.25 mg (0.187 mL) SUBCUT QWEEK 09/06/22 mg/1.5 mL) subcutaneous pen #1.5 mL injector (Ozempic) metformin 500 mg tablet See Rx Instructions .Route 10/08/22 .COMPLEX #120 tabs methocarbamol 500 mg tablet 500 mg PO TID #30 tabs 02/24/24 Allergies Allergy/AdvReac Type Severity Reaction Status Date / Time nitrofurantoin Allergy Mild hives/dizzi Verified 02/24/24 08:59 [NITROFURANTOIN] ness Patient History Medical History Germain's palsy Encounter for screening for malignant neoplasm of vagina Insulin resistance Surgical History History of salpingectomy (05/12/17) Status post hysterectomy (05/12/17) Status post cone biopsy of cervix (10/21/14) Status post loop electrosurgical excision procedure (LEEP) of cervix (09/02/14) Status post delivery (05/27/14) Status post laparoscopy (2010) History of third molar tooth extraction (2004) Social History Smoking Status: Never smoker Smoking Status: Never smoker Exam Initial Vital Signs Initial Vital Signs: Vital Signs Temperature 97.6 F 02/24/24 08:53 Pulse Rate 81 02/24/24 08:53 Respiratory Rate 14 02/24/24 08:53 Blood Pressure 138/70 02/24/24 08:53 Pulse Oximetry 98 02/24/24 08:53 Oxygen Delivery Method Room Air 02/24/24 08:53 Const: Awake, alert, no acute distress, nontoxic appearing Chest: No crepitus, no deformity, generalized tenderness over L paraspinal chest and rib cage Skin: Warm, Dry, intact, no rashes Neuro: AO x3, CN II-XII grossly intact, moves all extremities Course Orders Ordered: ED Orders 02/24/24 08:57 XR ribs LT min 3V w CXR1V Stat Discontinued Medications Ketorolac Tromethamine (Ketorolac 30 Mg/Ml Vial) 30 mg IM NOW ONE Stop: 02/24/24 08:59 Last Admin: 02/24/24 09:05 Dose: 30 mg Documented By: ORTIZ Lidocaine (Lidocaine 5% Patch) 1 each TOP NOW ONE Stop: 02/24/24 08:59 Last Admin: 02/24/24 09:06 Dose: 1 each Documented By: ORTIZ Methocarbamol (Methocarbamol 500 Mg Tablet) 500 mg PO NOW ONE Stop: 02/24/24 08:59 Last Admin: 02/24/24 09:06 Dose: 500 mg Documented By: ORTIZ Vital Signs Vital signs: Vital Signs - 8 hr 02/24/24 08:53 Temperature 97.6 F Pulse Rate 81 Respiratory Rate 14 Blood Pressure 138/70 Pulse Oximetry 98 Oxygen Delivery Method Room Air Medical Decision Making Imaging Data Chest x-ray: Radiologist's Impression: PROCEDURE: XR RIBS LT MIN 3V W CXR1V INDICATIONS: 'RIB OUT OF ALIGNMENT', LEFT SIDED PAIN TECHNIQUE: 2 views of the ribs were acquired, along with a single view chest. COMPARISON: None. FINDINGS: Surgical changes and devices: None. Bones and chest wall: No fractures or dislocations. No suspicious bony lesions. Overlying soft tissues appear unremarkable. Lungs and pleura: No pleural effusions or pneumothorax. Lungs appear clear. Mediastinum: Mediastinal contours appear normal. Heart size is normal. IMPRESSION: No displaced rib fracture or pneumothorax. Dictated by: Kala Osorio M.D. on 02/24/2024 at 9:40 Approved by: Kala Osorio M.D. on 02/24/2024 at 9:41 MDM Narrative Medical decision making narrative: Well-appearing patient with persistent left-sided rib pain. Patient is concerned that a rib may be displaced. Exam without crepitus or obvious deformity. Generalized tenderness across left-sided chest wall. IM Toradol, Robaxin, lidocaine patch applied. Rib series negative for acute findings. Patient states that with the provided therapies she was feeling more relaxed and in less pain. She was advised of imaging results. Recommended continued conservative management at home. Supportive therapies counseled. Discharge Plan Departure Patient Disposition: Home Clinical Impression: Painful rib Instructions: DI for Rib Contusion Activity Restrictions/Additional Instructions: Your x-ray series does not show any broken ribs, obviously misaligned ribs, or other concerning findings at this time. Continue to take the Celebrex with Tylenol for pain. A short course of muscle relaxers has been sent to your pharmacy. Do not take this medication with alcohol or before driving as it may cause drowsiness. 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 A DO physician specializing in OMM may also help with rib alignment. Prescriptions: New methocarbamol 500 mg tablet 500 mg PO TID Qty: 30 0RF No Action estradiol [Estrace] 0.01 % (0.1 mg/gram) cream 0.5 g vaginal 2XW Qty: 42.5 3RF estradiol 1 mg tablet See Rx Instructions .ROUTE .COMPLEX Qty: 90 3RF Dose Instruction: TAKE 1 TABLET DAILY Rx Instructions: TAKE 1 TABLET DAILY Ozempic 0.25 mg or 0.5 mg(2 mg/1.5 mL) pen injector 0.25 mg SUBCUT QWEEK Qty: 1.5 3RF Rx Instructions: for 4 weeks metformin 500 mg tablet See Rx Instructions .ROUTE .COMPLEX Qty: 120 11RF Dose Instruction: TAKE ONE TABLET BY MOUTH TWICE DAILY Rx Instructions: Take one tablet PO BID, gradually increasing by 500mg every 2 weeks until you reach 1000mg BID topiramate 50 mg tablet 50 mg PO BID CMP Testosterone cream 2% See Rx Instructions .ROUTE .COMPLEX Qty: 30 3RF Rx Instructions: Place 0.5-1ml to inner thigh daily ketorolac 10 mg tablet 10 mg PO TID PRN (Reason: pain) Qty: 14 0RF cyclobenzaprine 10 mg tablet 10 mg PO TID PRN (Reason: muscle spasm) Qty: 20 0RF lidocaine 5 % adhesive patch,medicated 1 patch TOP DAILY PRN (Reason: pain (scale score 1-3)) Qty: 15 0RF Rx Instructions: leave on most painful area for up to 12 hrs Referrals: Luiz Schultz MD [Primary Care Provider] - Stand Alone Forms: Patient Portal/API/Survey
[2024-02-24] MEDS: KETOROLAC 30 MG/ML VIAL IM (09:05)
[2024-02-24] MEDS: methocarbamoL 500 MG TABLET PO (09:06)
[2024-02-24] MEDS: LIDOCAINE 5% PATCH 1 EACH TOP (09:06)
== END 2024-02-24 10:13 | disposition home or self-care (01) ==
PROVIDERS: Emergency Provider Emergency Medicine; PCP Family Medicine
DX: R07.81 Pleurodynia (principal)
CPT/HCPCS: 71101; 96372; 99283; J1885

== ENCOUNTER 2024-10-20 23:23 | Emergency (ER) | payer OTHER, SELFPAY ==
--- NOTE | 2024-10-20 23:26 | EKG_ITS ---
[place] [id number] [place] [id number] Test Date: 2024-10-20 Pat Name: Yudi Irwin Department: [facility] Room: Gender: Female [employer]: NATALY : 1990 Requested By: Order Number: [id number] Reading MD: Tomi Burr Measurements Intervals [place] Rate: 94 P: 48 ID: [id number] QRS: 20 QRSD: 82 T: 14 QT: 358 QTc: 447 Interpretive Statements Normal sinus rhythm Anterolateral infarct , age undetermined Electronically Signed On 10-22-2024 8:42:38 PDT by Tomi Burr
[2024-10-20 23:28] VITALS: BP 139/88; PULSE 99; RESP 18; TEMP 36.8; O2SAT 95; BMI 42.0
--- NOTE | 2024-10-20 23:35 | EKG_ITS ---
[place] [id number] [place] [id number] Test Date: 2024-10-21 Pat Name: Yudi Irwin Department: [facility] Room: Gender: Female Family Law Specialist: NATALY : 1990 Requested By: Order Number: [id number] Reading MD: Tomi Burr Measurements Intervals [place] Rate: 80 P: 48 ID: [id number] QRS: 19 QRSD: 82 T: 14 QT: 378 QTc: 435 Interpretive Statements Normal sinus rhythm Possible Anterior infarct , age undetermined Electronically Signed On 10-22-2024 8:40:32 PDT by Tomi Burr
--- NOTE | 2024-10-20 23:35 | DI.RAD.S_ITS ---
PROCEDURE: XR CHEST 1V INDICATIONS: Shortness of breath TECHNIQUE: One view of the chest was acquired. COMPARISON: None. FINDINGS: Surgical changes and devices: None. Lungs and pleura: Lungs are clear. No pleural effusions or pneumothorax. Mediastinum: Mediastinal contours appear normal. Heart size is normal. Bones and chest wall: No suspicious bony lesions. Overlying soft tissues appear unremarkable. IMPRESSION: No acute cardiopulmonary abnormality is seen. Dictated by: Huseyin Drummond M.D. on 10/21/2024 at 0:08 Approved by: Huseyin Drummond M.D. on 10/21/2024 at 0:08
[2024-10-21] VITALS (9 sets, daily range): BP systolic 110–142; BP diastolic 58–78; PULSE 79–88; RESP 14–22; O2SAT 92–98
[2024-10-21 00:03] LABS: Add Manual Diff / Slide Review NO; Hematocrit 37.6 % (36-46); Hemoglobin 12.9 g/dL (12.0-16.0); Lymphocytes Absolute Auto 3300 /uL (1100-4500); Mean Corpuscular HGB Conc 34.2 % (30-36); Mean Corpuscular Hemoglobin 28.8 PG (26-34); Mean Corpuscular Volume 84.2 fL (80-100); Platelet Count 353 X10^3/uL (150-400)
[2024-10-21 00:05] LABS: INR 1.1 (0.9-1.3); Prothrombin Time 12.9 SECONDS (9.4-12.5)
[2024-10-21 00:10] LABS: Alanine Aminotransferase 27 IU/L (<35); Albumin 4.7 g/dL (3.5-5.0); Albumin Globulin Ratio 1.4 (1.0-2.8); Alkaline Phosphatase 57 U/L (38-126); Blood Urea Nitrogen 15 mg/dL (7-17); Calcium 9.6 mg/dL (8.4-10.2); Carbon Dioxide 23 mmol/L (22-32); Chloride 104 mmol/L (98-107); Estimated Glomerular Filt Rate > 60 mL/min (>60); Globulin 3.3 g/dL (1.7-4.1); Glucose 111 mg/dL (70-99); HEMOLYSIS 46 (0-50); Lactate (Lactic Acid) 1.5 mmol/L (0.7-2.1); Potassium 4.0 mmol/L (3.4-5.1); Sodium 137 mmol/L (137-145); Total Protein 8.0 g/dL (6.3-8.2)
[2024-10-21 00:20] LABS: NT-proBNP (BNP-Adult 18+) < 20 pg/mL (<125); Troponin I < 0.012 ng/mL (0.01-0.034)
[2024-10-21] MEDS: SODIUM CHLORIDE 0.9% 1,000 ML 1000 ML IV (01:26)
[2024-10-21 01:46] LABS: Troponin I < 0.012 ng/mL (0.01-0.034)
--- NOTE | 2024-10-21 01:49 | ED_ITS ---
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 She has been tried on methotrexate in the past, not tolerated. Humira has been offered in the past but she is reluctant to try this so far. She still takes Celebrex. No recent steroid. Last year she had evaluation for palpitations, or monitor for 1 week, no specific diagnosis recalled, no therapy or follow up prompted from the results. She is having intermittent chest discomfort nonpleuritic, palpitations, no syncope or presyncopal symptoms, occasionally with some shortness of breath. No fevers or chills or recent cough. No new or change in medications. Related Data Home Medications ?Medication ?Instructions ?Recorded ?Confirmed topiramate 50 mg tablet 50 mg PO BID 08/01/21 Previous Rx's ?Medication ?Instructions ?Recorded cyclobenzaprine 10 mg tablet 10 mg PO TID PRN muscle s pasm #20 12/05/19 tabs ketorolac 10 mg tablet 10 mg PO TID PRN pain #14 ta bs 12/05/19 lidocaine 5 % topical patch 1 patch topical DAILY PRN pain 12/05/19 (scale score 1-3) #15 ea CMP Testosterone cream 2% See Rx Instructions .Route 0 08/01/21 .COMPLEX #30 grams estradiol 0.01% (0.1 mg/gram) 0.5 g vaginal 2XW #42.5 grams 10/17/21 vaginal cream (Estrace) estradiol 1 mg tablet See Rx Instructions .Route 0 04/23/22 .COMPLEX #90 tabs semaglutide 0.25 mg or 0.5 mg (2 0.25 mg (0.187 mL) ALVA BCUT QWEEK 09/06/22 mg/1.5 mL) subcutaneous pen #1.5 mL injector (Ozempic) metformin 500 mg tablet See Rx Instructions .Route 0 10/08/22 .COMPLEX #120 tabs methocarbamol 500 mg tablet 500 mg PO TID #30 tabs 01/07 Allergies Allergy/AdvReac Type Severity Reaction Status Date / Time nitrofurantoin Allergy Mild hives/dizzi Verified 02/24/24 08:59 (NITROFURANTOIN) ness Patient History Medical History Germain's palsy Encounter for screening for malignant neoplasm of vagina Insulin resistance Surgical History History of salpingectomy (05/12/17) Status post hysterectomy (05/12/17) Status post cone biopsy of cervix (10/21/14) Status post loop electrosurgical excision procedure (LEEP) of cervix (09/02/14) Status post delivery (05/27/14) Status post laparoscopy (2010) History of third molar tooth extraction (2004) Social History Smoking Status: Never smoker Smoking Status: Never smoker Exam Narrative Exam Narrative: GENERAL: Well-developed patient, in mild distress. HEAD: Atraumatic. Normocephalic. EYES: Pupils equal round and reactive. Extraocular motions intact. No scleral icterus. No injection or drainage. ENT: Nose without bleeding, purulent drainage. Throat without erythema, tonsillar hypertrophy or exudate. Airway patent. NECK: Trachea midline. Non tender CARDIOVASCULAR: Regular rate and rhythm without murmurs, gallops, or rubs. RESPIRATORY: Clear to auscultation. Breath sounds equal bilaterally. No wheezes, rales, or rhonchi. GASTROINTESTINAL: Abdomen soft, non-tender, nondistended. EXTREMITIES: No edema or joint tenderness. BACK: Nontender without deformity or crepitance. No flank tenderness. NEURO: AOx3. Motor functions grossly nonfocal. SKIN: No rash or erythema of visible areas Initial Vital Signs Initial Vital Signs: Vital Signs Temperature 98.2 F 10/20/24 23:28 Pulse Rate 99 H 10/20/24 23:28 Respiratory Rate 18 10/20/24 23:28 Blood Pressure 139/88 10/20/24 23:28 Pulse Oximetry 95 10/20/24 23:28 Oxygen Delivery Method Room Air 10/20/24 23:28 Scores HEART Score Heart Score history: Slightly Suspicious Heart Score EKG: Normal Heart Score Age: < 45 years old Heart Score risk factors: No known risk factors Heart Score troponin: < or = to normal limit Heart Score Total: 0 Wells' Criteria for PE Clinical signs and symptoms of DVT: No PE is #1 Dx or equally likely: No Heart rate > 100: No Immobilization at least 3 days or surg in previous 4 weeks: No History of PE or DVT: No Hemoptysis: No Malignancy w/Treatment within 6 months or palliative: No Wells' PE Score total: 0 Course Orders Ordered: ED Orders 10/20/24 23:26 EKG-12 Lead Stat 10/20/24 23:35 XR chest 1V Stat EKG-12 Lead Stat Measure peak expiratory flow STAT RT Consult Eval and Treat STAT 10/20/24 23:49 Complete Blood Count AUTO DIFF Stat Comprehensive Metabolic Panel Stat Lactate (Lactic Acid) Stat NT-proBNP (BNP-Adult 18+) Stat Prothrombin Time INR Stat Troponin I Stat 10/21/24 01:15 Trop I [Troponin I] Stat 10/21/24 02:03 D Dimer Stat 10/21/24 02:36 CT angio chest PE protocol Stat Discontinued Medications Sodium Chloride (Normal Saline 0.9%) 1,000 mls @ 1,000 mls/hr IV BOLUS ONE Stop: 10/21/24 02:15 Last Infusion: 10/21/24 02:49 Dose: Infused Documented By: Admin: 10/21/24 01:26 Dose: 1,000 mls/hr Documented By: MAGNO Vital Signs Vital signs: Vital Signs - 8 hr 10/20/24 23:28 10/21/24 01:12 10/21/24 01:12 Temperature 98.2 F Pulse Rate 99 H 86 Respiratory Rate 18 Blood Pressure 139/88 142/78 H Pulse Oximetry 95 96 Oxygen Delivery Method Room Air 10/21/24 01:30 10/21/24 01:58 10/21/24 01:58 Temperature Pulse Rate 87 88 Respiratory Rate 21 22 Blood Pressure 132/64 Pulse Oximetry 95 Oxygen Delivery Method 10/21/24 02:00 10/21/24 02:00 10/21/24 02:30 Temperature Pulse Rate 83 Respiratory Rate 18 Blood Pressure 123/58 L 121/66 Pulse Oximetry Oxygen Delivery Method 10/21/24 02:30 10/21/24 03:03 10/21/24 03:30 Temperature Pulse Rate 79 86 83 Respiratory Rate 14 21 Blood Pressure Pulse Oximetry 97 92 97 Oxygen Delivery Method 10/21/24 04:07 10/21/24 04:08 Temperature Pulse Rate 85 Respiratory Rate Blood Pressure 110/63 Pulse Oximetry 98 Oxygen Delivery Method MDM - Arrhythmia/Palpitations Lab Data Attestation: I reviewed the patient's lab results. Lab results narrative: White blood cell count 17102, hemoglobin 12.9, platelets adequate. Glucose 111. Renal function, serum CO2, electrolytes normal. Liver functions normal. Lactate normal. Troponin x2 sequential sets negative/unmeasurable. 10/20/24 23:49 10/20/24 23:49 Labs: Lab Results 10/20/24 10/21/24 Range/Units 23:49 01:15 WBC 10.1 (4.5-11.0) X10^3/uL RBC 4.47 (4.0-5.2) X10^6/uL Hgb 12.9 (12.0-16.0) g/dL Hct 37.6 (36-46) % MCV 84.2 (80-100) fL MCH 28.8 (26-34) PG MCHC 34.2 (30-36) % RDW 13.2 (11.6-14.8) % Plt Count 353 (150-400) X10^3/uL Neut % (Auto) 58.0 (50-75) % Lymph % (Auto) 33.0 (25-40) % Appling % (Auto) 4.6 (3-14) % Eos % (Auto) 3.3 (2-4) % Baso % (Auto) 1.1 (0-2) % Neut # (Auto) 5800 (1744-1968) /uL Lymph # (Auto) 3300 (2843-5483) /uL Appling # (Auto) 500 (0-900) /uL Eos # (Auto) 300 (0-450) /uL Baso # (Auto) 100 (0-100) /uL PT 12.9 H (9.4-12.5) SECONDS INR 1.1 (0.9-1.3) D-Dimer 572 H (<500) ng/ml Sodium 137 (137-145) mmol/L Potassium 4.0 (3.4-5.1) mmol/L Chloride 104 (98-107) mmol/L Carbon Dioxide 23 (22-32) mmol/L BUN 15 (7-17) mg/dL Creatinine 0.64 (0.52-1.04) mg/dL Estimated GFR > 60 (>60) mL/min BUN/Creatinine Ratio 23.4 H (6-22) Glucose 111 H (70-99) mg/dL Lactate 1.5 (0.7-2.1) mmol/L Calcium 9.6 (8.4-10.2) mg/dL Total Bilirubin 0.4 (0.2-1.3) mg/dL AST 30 (14-36) IU/L ALT 27 (<35) IU/L Alkaline Phosphatase 57 (38-126) U/L Troponin I < 0.012 < 0.012 (0.01-0.034) ng/mL NT-Pro-B Natriuret Pep < 20 (<125) pg/mL Total Protein 8.0 (6.3-8.2) g/dL Albumin 4.7 (3.5-5.0) g/dL Globulin 3.3 (1.7-4.1) g/dL Albumin/Globulin Ratio 1.4 (1.0-2.8) Imaging Data Chest x-ray: Radiologist's Impresson: [place] [address] XRay Report Signed Patient: Yudi Irwin MR#: [id number] : 1990 Acct:[id number] Age/Sex: 33 / F Date of Service: 10/20/24 Loc: ED Accession Number: [id number] Procedure: XR chest 1V Ordering Provider: Shane Arce MD PROCEDURE: XR CHEST 1V INDICATIONS: Shortness of breath TECHNIQUE: One view of the chest was acquired. COMPARISON: None. FINDINGS: Surgical changes and devices: None. Lungs and pleura: Lungs are clear. No pleural effusions or pneumothorax. Mediastinum: Mediastinal contours appear normal. Heart size is normal. Bones and chest wall: No suspicious bony lesions. Overlying soft tissues appear unremarkable. IMPRESSION: No acute cardiopulmonary abnormality is seen. Dictated by: Huseyin Drummond M.D. on 10/21/2024 at 0:08 Approved by: Huseyin Drummond M.D. on 10/21/2024 at 0:08 ECG Data Interpretation: 2330, normal sinus rhythm with rate of 94, no obvious ST segment elevation or depression changes. NE 150, QRS 82, QTC 447. 0121, normal sinus rhythm with rate of 80, no obvious ST segment elevation or depression changes. NE 156, QRS 82, QTC 435. 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 Afebrile, sirs screen negative. Screening EKG unremarkable. EKGs without ischemic changes. Chest x-ray no acute changes. Lab data: White blood cell count 83144, hemoglobin 12.9, platelets adequate. Glucose 111. Renal function, serum CO2, electrolytes normal. Liver functions normal. Lactate normal. Troponin x2 sequential sets negative/unmeasurable. HEART Score 0, low risk. Wells Score 0, low risk, but history of mixed connective tissue disorder, MELISSA positive, could have hypercoagulable risk factor and some increased risk for PE. Will send serum D-dimer. Patient agreeable. D-dimer positive. Renal function adequate. CT angiogram chest PE protocol ordered. Patient agrees. CTA chest no PE, no aortic syndrome, no acute changes. See tele radiology report. Copy of report provided to patient with explanation. Further workup as an outpatient for now. Consider repeat Holter/ambulatory cardiac monitoring. Further cardiac workup as an outpatient for now. Contact information given for office of local automobile service writer Dr. Barillas, though referral from primary care provider might be required. Discharged home. Return precautions discussed. Discharge Plan Departure Patient Disposition: Home Clinical Impression: Chest pain, Heart palpitations Activity Restrictions/Additional Instructions: Intermittent palpitations and chest pain or shortness of breath of unclear cause. History of undifferentiated connective tissue disorder, MELISSA positive, ankylosing spondylitis, followed by local rheumatology, on Celebrex anti- inflammatory medication but no biologics or methotrexate or steroids. Prior ambulatory cardiac monitoring about 1 year ago, no specific disorder recalled, prompted no specific therapies. EKG and serial blood tests not suggestive of heart attack at this time. D-dimer slightly positive, CT angiogram of the chest done, no blood clot to the lungs or aortic artery problems, or other other acute chest findings noted. Consider ambulatory repeat cardiac monitoring, further workup of your chest discomfort and shortness of breath in palpitations as outpatient for now. Contact information given for local automobile service writer on-call Dr. Moreno, though you might require referral from your primary care provider. Consider arranging ambulatory cardiac monitoring through your regular provider as well. Return earlier to this/nearest emergency department for any change worsening symptoms or any concerns prior. Prescriptions: No Action estradiol [Estrace] 0.01 % (0.1 mg/gram) cream 0.5 g vaginal 2XW Qty: 42.5 3RF estradiol 1 mg tablet See Rx Instructions .ROUTE .COMPLEX Qty: 90 3RF Dose Instruction: TAKE 1 TABLET DAILY Rx Instructions: TAKE 1 TABLET DAILY Ozempic 0.25 mg or 0.5 mg(2 mg/1.5 mL) pen injector 0.25 mg SUBCUT QWEEK Qty: 1.5 3RF Rx Instructions: for 4 weeks metformin 500 mg tablet See Rx Instructions .ROUTE .COMPLEX Qty: 120 11RF Dose Instruction: TAKE ONE TABLET BY MOUTH TWICE DAILY Rx Instructions: Take one tablet PO BID, gradually increasing by 500mg every 2 weeks until you reach 1000mg BID topiramate 50 mg tablet 50 mg PO BID CMP Testosterone cream 2% See Rx Instructions .ROUTE .COMPLEX Qty: 30 3RF Rx Instructions: Place 0.5-1ml to inner thigh daily ketorolac 10 mg tablet 10 mg PO TID PRN (Reason: pain) Qty: 14 0RF cyclobenzaprine 10 mg tablet 10 mg PO TID PRN (Reason: muscle spasm) Qty: 20 0RF lidocaine 5 % adhesive patch,medicated 1 patch TOP DAILY PRN (Reason: pain (scale score 1-3)) Qty: 15 0RF Rx Instructions: leave on most painful area for up to 12 hrs methocarbamol 500 mg tablet 500 mg PO TID Qty: 30 0RF Referrals: Patrick Barillas MD [Physician, Cardiology] Luiz Schultz MD [Primary Care Provider, Family Practice] Stand Alone Forms: Patient Portal/API
--- NOTE | 2024-10-21 02:36 | DI.CT.S_ITS ---
PROCEDURE: CT ANGIO CHEST PE PROTOCOL INDICATIONS: CP, elevated Ddimer, hx MELISSA-pos connective tiss d/o TECHNIQUE: After the administration of intravenous contrast, 2 mm thick sections acquired from the pulmonary apices to the posterior costophrenic angles. 3-dimensional maximum intensity projection (MIP) coronal and sagittal reformats were then acquired through the thorax. For radiation dose reduction, the following was used: automated exposure control, adjustment of mA and/or kV according to patient size. COMPARISON: [facility], CR, XR CHEST 1V, 10/20/2024, 23:40. FINDINGS: Image quality: Diagnostic Lungs and pleura: Mosaic attenuation of the pulmonary parenchyma, likely chronic small airways disease. No dense consolidation or pleural effusion. 6-7 mm right anterior lung pulmonary nodule is present. Many other smaller nodules are present. Mediastinum, heart, and esophagus: No acute pulmonary embolism. Heart size is at the upper limit of normal. Mildly patulous esophagus. No enlarged lymph nodes by size criteria. Chest wall and thyroid: Unremarkable Upper abdomen: No arterial phase abnormality in the upper abdomen Bones: No aggressive appearing osseous abnormality. IMPRESSION: No acute pulmonary embolism. No dense airspace disease or pleural effusions. Mosaic attenuation the lung parenchyma, suspicious for chronic small airways inflammation, which can be associated with connective tissue diseases. There also small pulmonary nodules, measuring up to 6-7 mm. These are overall low risk. Given suspicion for background lung disease, high-resolution chest CT follow-up is reasonable as an outpatient. These nonurgent changes to the preliminary report [facility] the time stamp below Dictated by: David Archer M.D. on 10/21/2024 at 6:47 Approved by: David Archer M.D. on 10/21/2024 at 6:52
== END 2024-10-21 04:17 | disposition home or self-care (01) ==
PROVIDERS: Emergency Provider Emergency Medicine; PCP Family Medicine
DX: R07.9 Chest pain, unspecified (principal); R00.2 Palpitations; L94.8 Other specified localized connective tissue disorders; M45.9 Ankylosing spondylitis of unspecified sites in spine
CPT/HCPCS: 36415; 71045; 71275; 80053; 83605; 83880; 84484; 85025; 85379; 85610; 93005; 96360; 99284; Q9967